=== PATIENT | female | born 1940 | race Caucasian/White ===

== ENCOUNTER 2021-03-17 17:51 | Inpatient (IN) | payer MEDICARE ==
[~2021-03-17] VITALS: Ht 157.5 cm; Wt 91.2 kg
[~2021-03-17 17:51] MED LIST: ALBU2.5V8 IH; FENO160T PO; FURO-68 PO; LORA-254 PO; PANT40TA3 PO; POTA10TA5 PO; QUET50TA5 PO; RIVA20TA2 PO; SERT100T PO; TEMA15CA PO; TRAZ-125 PO
[2021-03-17] MEDS ORDERED: MAG HYDROX/AL HYDROX/SIMETH 30 ML ORAL.SUSP PO PRN (19:45)
[2021-03-17] MEDS ORDERED: MAGNESIUM HYDROXIDE 2,400 MG/30 ML ORAL.SUSP. PO PRN (19:45)
[2021-03-17] MEDS ORDERED: LORazepam 1 MG TABLET PO PRN (19:45)
[2021-03-17] MEDS ORDERED: ALBUTEROL SULFATE 2.5 MG/3 ML NEBU. IH PRN (19:45)
[2021-03-17] MEDS ORDERED: METHYL SALICYLATE/MENTHOL TOPICAL OINTMENT 57GM TUBE. TP PRN (19:45)
--- NOTE | 2021-03-17 19:45 | NUR ---
Admission Note with Justification for Admission to [facility] Patient admitted to [facility] for protective oversight for emergency stabilization of acute psychiatric crisis. Pt admitted from: [address] [place] [address]/ [facility] Mode of arrival: w/c Accompanied By: [facility] Staff Precipitating behaviors that initiated intake and admission: delusional- thinks she is going [place] be [place] the [place], insomnia, anxiety, yelling out, screaming, scared, expressing that she wants to , disruptive to others in the [facility] community. Family reports pt had a traumatic experience in a halfway within the past month. Family feels pt may be having PTSD from that experience. Description of failure of out patient attempts at stabilization in previous setting list behavior and medication trials: medication changes, Ativan, outpatient psych, ER 03/16 for fall Behaviors and assessment findings upon admission: Pt A/O to self, confused, anxious, and tearful, difficult to re-direct and re-orient. Pt cooperative with admission assessment and compliant with medications administered whole. PRN Lorazepam administered for anxiety. Pt c/o L foot/ankle pain, area bruised and swollen. Pt had an x-ray of her L foot/ankle at [facility] on 03/16 which was negative for fx. PRN Tylenol administered for pain and pt LE elevated at HS. Pt has been yelling/calling out for "Paula" (DPOA/Dtr). Pt oriented to room, yellow non-slip socks on, bed low and locked, bed alarm @HS in use. Plan: Admit for protective oversight for adjustment and stabilization of medications, behaviors and mood. Intense treatment regimen including groups, medication adjustments, therapy, consistent regimen for ADL's, self care, and sleep hygiene. Daily monitoring by Inpatient staff, Psychiatry, and Medical Physician.
[2021-03-17] MEDS: traZODone 100 MG TABLET. PO SCH (20:19)
[2021-03-17] MEDS: QUEtiapine 50 MG TABLET. PO SCH (20:20)
[2021-03-17] MEDS: ACETAMINOPHEN 325 MG TABLET PO PRN (20:20)
[2021-03-17] MEDS: RIVAROXABAN 10 MG TABLET. PO SCH (20:20)
[2021-03-17 21:37] VITALS: BP 132/76
[2021-03-17] MEDS: TEMAZEPAM 15 MG CAPSULE PO PRN (22:34)
[2021-03-18 06:10] VITALS: BP 137/77
[2021-03-18] MEDS: PANTOPRAZOLE 40 MG TABLET. PO SCH ×2 (08:53→17:14)
[2021-03-18] MEDS: POTASSIUM CHLORIDE 10 MEQ TABLET.ER. PO SCH (08:54)
[2021-03-18] MEDS: SERTRALINE 100 MG TABLET. PO SCH (08:54)
[2021-03-18] MEDS: FUROSEMIDE 20 MG TABLET PO SCH (08:54)
[2021-03-18] MEDS: FENOFIBRATE NANOCRYSTALLIZED 145 MG TABLET PO SCH (08:54)
--- NOTE | 2021-03-18 12:47 | NUR ---
Nursing note: Patient in [facility] for morning medications & assessment, medications taken whole. She is A/O to self, tearful all day, calling out for daughter. Denies pain/discomfort at this time. Patient is currently eating lunch. Will continue to monitor.
[2021-03-18 15:46] VITALS: BP 136/84
[2021-03-18] MEDS: RIVAROXABAN 10 MG TABLET. PO SCH (17:14)
[2021-03-18] MEDS: QUEtiapine 50 MG TABLET. PO SCH (17:15)
[2021-03-18] MEDS: FERROUS SULFATE 325 MG TABLET. PO SCH (17:45)
[2021-03-18] MEDS: CHOLECALCIFEROL (VITAMIN D3) 50,000 UNIT CAPSULE PO SCH (17:45)
--- NOTE | 2021-03-18 18:09 | HP ---
ADMIT DATE: 03/18/2021 PSYCHIATRIC ADMISSION HISTORY/EVALUATION IDENTIFYING DATA: The patient is a 80-year-old female referred to us from [facility] by her primary care physician on account of worsening symptoms of depression, being delusional with marked insomnia, increased anxiety, screaming out, appearing scared. She was thinking she is going to be left out in a corn field and expressed thoughts of wanting to be . She was more forgetful and confused, depressed and psychotic, had failed outpatient psychiatric interventions resulting in this referral. The patient was admitted 03/17. CHIEF COMPLAINT: "Yes, I am depressed." The patient has been depressed, more confused, had failed outpatient psychiatric intervention, resulting in this referral. HISTORY OF PRESENT ILLNESS: The patient has a history of major neurocognitive disorder, Alzheimer, vascular type. She has been residing at the [facility], recently getting more depressed, anxious, paranoid, psychotic, and confused. She has had marked insomnia. No active suicidal or homicidal ideation, though she has expressed thoughts of wanting to be , but then scared that she would . No clear history of bipolar disorder. PAST PSYCHIATRIC HISTORY: As above. MEDICAL HISTORY: Hypertension, congestive heart failure, hypothyroidism, COPD, atrial fibrillation, hyperlipidemia, status post pulmonary embolism, GI bleed, recurrent falls. ACCU-CHEKS: None. CODE STATUS: DNR. ALLERGIES: ERYTHROMYCIN, PENICILLIN. DIET: Regular. MEDICATIONS: Takes medications whole. Ambulates standby assist with walker. UA 03/17 was negative. Current psychotropics: Ativan 1 mg t.i.d. p.r.n., temazepam 15 mg at bedtime p.r.n., Zoloft 200 mg a day, trazodone 100 mg at bedtime, Seroquel 50 mg daily at 5:00 p.m. Exelon mg at bedtime. FAMILY HISTORY: Noncontributory. SOCIAL HISTORY: No history of alcohol, drug abuse, physical, sexual or elder abuse. The patient is not known to be a perpetrator. REACTION TO HOSPITALIZATION: The patient accepting of it. The patient had a fall 03/[address] head, abdomen and pelvic, C-spine. X-ray left foot, ankle. Chest x-ray, x-ray right femur, right shoulder. EKG at that time and Tdap booster at [facility]. REVIEW OF SYSTEMS: Ambulation impaired, with walker. No CV, , pulmonary, eye, ENT system symptoms on review. MENTAL STATUS EXAM: The patient was seen on Telehealth services at 03/18. She is tearful, sad, crying, was unaware of the year, was not able to tell me her last name, but did respond yes when I asked her if she was living at [facility]. Speech is often responses monosyllabic, has some latency. Short-term memory is impaired. No active suicidal or homicidal ideation. Mood and affect are depressed. IMPRESSION: Probable major neurocognitive disorder, vascular with delusion. Depression, anxiety disorder, unspecified. Major depressive disorder, recurrent. Impulse control disorder. Rest as above. PLAN: Admit to Geropsychiatry Unit at [facility]. I will see the patient daily individually from a psychiatric standpoint, medical followup per Dr. Pitts/Dr. Garcia. Continue current psychotropics. Discontinue the Exelon for now until we assess her further. Make further adjustments in psychotropics post baseline assessment. ALBERTO/STUART/MIKE DR: ALBERTO/darrel TID: [id number]
[2021-03-18] MEDS: traZODone 100 MG TABLET. PO SCH (20:28)
[2021-03-18] MEDS: MIRTAZAPINE 7.5 MG TABLET. PO SCH (20:28)
[2021-03-18] MEDS: ASCORBIC ACID 500 MG TABLET PO SCH (20:28)
[2021-03-18] MEDS ORDERED: FERROUS SULFATE 325 MG TABLET. PO SCH (21:00)
[2021-03-18] MEDS ORDERED: ASCORBIC ACID 500 MG TABLET PO SCH (21:00)
--- NOTE | 2021-03-18 23:39 | NUR ---
Patient located in the hallway for assessments and medication, sitting with a peer. She is disorganized, flat. She was compliant with assessments and medications taken whole. No agitation. No delusions noted. She denies any pain or discomfort. Patient appears to be sleeping comfortably at present time. Will continue to monitor.
--- NOTE | 2021-03-19 00:10 | CONS ---
DATE OF CONSULTATION: 03/18/2021 REASON FOR CONSULTATION: Medical management. HISTORY OF PRESENT ILLNESS: The patient is a 80-year-old female patient, resident at [facility] in [facility] who was admitted to [facility] on account of having delusional, very anxious, screaming out things that she is going to be left in a corn field, frightened, scared, expresses that she wants to , all this in a background of dementia, Alzheimer's type. She apparently fell before coming to this unit and therefore, she was admitted to [facility] and extensive evaluation showed no evidence of any injury. She was admitted to [address] [place] [address] for a short stay and has had lab work drawn and was admitted to [facility] for inpatient psychiatric stabilization. The patient is very delusional, still asks me if she can get out of the corn field, has insomnia, extremely anxious, screaming out things that she is going to be left alone in a corn field, frightened and scared. PAST MEDICAL HISTORY: Significant for chronic diastolic congestive heart failure, hypertension, hypothyroidism, chronic obstructive pulmonary disease, atrial fibrillation, hyperlipidemia, history of pulmonary embolism and history of GI bleed. PAST PSYCHIATRIC HISTORY: Significant for anxiety, depression as well as dementia of Alzheimer's type. PAST SURGICAL HISTORY: Unremarkable. ALLERGIES: She has no known drug allergies. MEDICATIONS: She is currently on the following medications: She is on albuterol sulfate 2 puffs 4 times a day, rivaroxaban 20 mg once a day, fenofibrate 160 mg daily, sertraline 200 mg daily, trazodone 100 mg at bedtime, quetiapine fumarate 50 mg daily, lorazepam 1 mg 3 times a day, temazepam 15 mg at bedtime, potassium chloride 30 mEq once a day, furosemide 60 mg daily and Protonix 40 mg once a day. FAMILY HISTORY: Noncontributory. SOCIAL HISTORY: She is a resident at [facility]. PHYSICAL EXAMINATION: GENERAL: When I examined her this afternoon, she was resting flat, comfortably in bed, in no apparent respiratory distress. There is no pallor, jaundice, cyanosis, or thyromegaly. No jugular venous distention. No limb edema. VITAL SIGNS: Her heart rate was 92, blood pressure 149/77, temperature was 97.8, respiratory rate 20, and oxygen saturation was 97% on room air. HEAD, EYES, EARS, NOSE, AND THROAT: Normocephalic, atraumatic. NECK: Supple. HEART: Showed normal first and second heart sounds, no gallop or murmur. CHEST: Clear to auscultation, no crepitation or rhonchi. ABDOMEN: Distended, soft, nontender. NEUROLOGIC: She was grossly intact. LABORATORY DATA: Showed that she has microcytic hypochromic anemia. Her D-dimer was slightly elevated at 0.92 mg per liter and her chemistry was mostly unremarkable except that she has a low 25-hydroxy vitamin D. Her serum iron, TIBC and iron saturation are all consistent with iron deficiency anemia. My plan is to start her on vitamin D in the form of cholecalciferol 50,000 units once a week. She will also be started on ferrous sulfate and ascorbic acid to replenish her iron stores. Thank you, Dr. Pollard for allowing me to participate in the care of this patient. IFEANYI/KAROLINA DR: Viet TID: [id number]
[2021-03-19 06:20] VITALS: BP 165/84
[2021-03-19] MEDS: PANTOPRAZOLE 40 MG TABLET. PO SCH ×2 (08:35→17:10)
[2021-03-19] MEDS: FUROSEMIDE 20 MG TABLET PO SCH (08:36)
[2021-03-19] MEDS: POTASSIUM CHLORIDE 10 MEQ TABLET.ER. PO SCH (08:36)
[2021-03-19] MEDS: ACETAMINOPHEN 325 MG TABLET PO PRN (08:36)
[2021-03-19] MEDS: ASCORBIC ACID 500 MG TABLET PO SCH ×2 (08:36→20:47)
[2021-03-19] MEDS: FERROUS SULFATE 325 MG TABLET. PO SCH ×2 (08:36→17:10)
[2021-03-19] MEDS: SERTRALINE 100 MG TABLET. PO SCH (08:36)
[2021-03-19] MEDS: FENOFIBRATE NANOCRYSTALLIZED 145 MG TABLET PO SCH (08:36)
[2021-03-19] MEDS ORDERED: CHOLECALCIFEROL (VITAMIN D3) 50,000 UNIT CAPSULE PO SCH (09:00)
--- NOTE | 2021-03-19 09:49 | PDOC ---
Exam Note: Morgan Note: Late entry for 03/18/2021. Please also refer to the separate dictated note~for this date of service dictated separately.~Patient seen individually. Discussed the patient with Nursing staff reviewed the chart.~Reviewed interim history and current functioning. Reviewed vital signs,~Labs/ Radiology~and current medic ations noted below. Continue current treatment with the changes noted in the dictated addendum note Assessment: Vital Signs/I&O: Vital Signs Date Time Temp Pulse Resp B/P (MAP) Pulse Ox O2 Delivery O2 Flow Rate FiO2 03/19/21 06:20 97.7 89 18 165/84 (111) 94 Room Air I & O 03/18/21 03/18/21 03/19/21 15:00 23:00 07:00 Intake Total 600 ml 120 ml Balance 600 ml 120 ml Current Medications: Meds: Current Medications Medications (Trade) Dose Ordered Sig/Wing Route PRN Reason Start Time Stop Time Status Last Admin Dose Admin Albuterol Sulfate (Ventolin) 2.5 mg PRN QID PRN IH wheezing 03/17/21 19:45 Furosemide (Lasix) 60 mg DAILY PO 03/18/21 09:00 03/19/21 08:36 Pantoprazole Sodium (Protonix) 40 mg BIDBFRMEAL PO 03/18/21 07:30 03/19/21 08:35 Fenofibrate (Tricor) 145 mg DAILY PO 03/18/21 09:00 03/19/21 08:36 Potassium Chloride (Klor-Con) 30 meq DAILYWBKFT PO 03/18/21 08:00 03/19/21 08:36 Rivaroxaban (Xarelto) 20 mg DAILYWSUP PO 03/17/21 20:00 03/18/21 17:14 Lorazepam (Ativan) 1 mg PRN TID PRN PO ANXIETY / AGITATION 03/17/21 19:45 03/17/21 20:19 Quetiapine Fumarate (SEROquel) 50 mg DAILYWSUP PO 03/17/21 20:00 03/18/21 17:15 Sertraline HCl (Zoloft) 200 mg DAILY PO 03/18/21 09:00 03/19/21 08:36 Temazepam (Restoril) 15 mg PRN QHS PRN PO INSOMNIA 03/17/21 19:45 03/17/21 22:34 Trazodone HCl (Desyrel) 100 mg HS PO 03/17/21 21:00 03/18/21 20:28 Acetaminophen (Tylenol) 650 mg PRN Q6HRS PRN PO MILD PAIN / TEMP > 100.3'F 03/17/21 19:45 03/19/21 08:36 Multi-Ingredient Ointment (Analgesic [place]) 1 ravin PRN QID PRN TP MUSCLE PAIN 03/17/21 19:45 Al Hydroxide/Mg Hydroxide (Mylanta Plus Xs) 15 ml PRN AFTMEALHC PRN PO DYSPEPSIA 03/17/21 19:45 Magnesium Hydroxide (Milk Of Magnesia) 2,400 mg PRN QHS PRN PO CONSTIPATION 03/17/21 19:45 Mirtazapine (Remeron) 7.5 mg QHS PO 03/18/21 21:00 03/18/21 20:28 Olanzapine (ZyPREXA ZYDIS) 2.5 mg PRN Q2HRS PRN PO PSYCHOSIS 03/18/21 10:30 03/18/21 13:50 Vitamin D (Vitamin D3) 50,000 unit WEEKLY PO 03/18/21 18:00 03/18/21 17:45 Ferrous Sulfate (Feosol) 325 mg BIDWMEALS PO 03/18/21 18:00 03/19/21 08:36 Ascorbic Acid (Vitamin C) 500 mg BID PO 03/18/21 21:00 03/19/21 08:36 Vitamin D (Vitamin D3) 50,000 unit WEEKLY PO 03/19/21 09:00 03/18/21 17:45 DC Ferrous Sulfate (Feosol) 325 mg BID PO 03/18/21 21:00 03/18/21 17:45 DC Ascorbic Acid (Vitamin C) 500 mg BID PO 03/18/21 21:00 03/18/21 17:45 DC Current Medications Medications (Trade) Dose Ordered Sig/Wing Route PRN Reason Start Time Stop Time Status Last Admin Dose Admin Mirtazapine (Remeron) 7.5 mg QHS PO 03/18/21 21:00 03/18/21 20:28 Olanzapine (ZyPREXA ZYDIS) 2.5 mg PRN Q2HRS PRN PO PSYCHOSIS 03/18/21 10:30 03/18/21 13:50 Vitamin D (Vitamin D3) 50,000 unit WEEKLY PO 03/18/21 18:00 03/18/21 17:45 Ferrous Sulfate (Feosol) 325 mg BIDWMEALS PO 03/18/21 18:00 03/19/21 08:36 Ascorbic Acid (Vitamin C) 500 mg BID PO 03/18/21 21:00 03/19/21 08:36 I have reviewed the current psychotropics carefully including drug interactions. Risk benefit ratio favors no change other than as noted in my dictated progress note. Diagnosis: Problems: (1) Anxiety disorder, unspecified (2) Impulse control disorder, unspecified (3) Major neurocognitive disorder (4) Major depressive disorder, recurrent episode KADI YEPZE MD Mar 19, 2021 09:49
[2021-03-19] MEDS: QUEtiapine 50 MG TABLET. PO SCH ×2 (12:35→17:10)
--- NOTE | 2021-03-19 13:11 | NUR ---
WEEKLY ACTIVITY THERAPY NOTE Date of Admission:03/17/21 Date of AT Assessment: TBD Precipitating behaviors that initiated intake and admission: delusional- thinks she is going to be [place] the [place], insomnia, anxiety, yelling out, screaming, scared, expressing that she wants to , disruptive to others in the senior living community. Family reports pt had a traumatic experience in a long term within the past month. Family feels pt may be having PTSD from that experience. Goal aimed: TBD Initial Goal: TBD Weekly progress towards goal: NA Group participation level: NA Weekly highlights: arrived on [facility] Behaviors observed: new patient Plan: meet/assess pt Beneficial adaptations: TBD
--- NOTE | 2021-03-19 14:18 | NUR ---
Nursing note: Patient in [facility] for morning medications & assessment, medications taken whole. She is A/O to self, tearful all day, calling out for daughter. She ambulates with walker as well as uses wheelchair occasionally. She can be unsteady at times. Denies pain/discomfort at this time. Patient is currently sitting in [facility]. Will continue to monitor.
[2021-03-19 15:43] VITALS: BP 119/80
[2021-03-19] MEDS: RIVAROXABAN 10 MG TABLET. PO SCH (17:10)
[2021-03-19] MEDS: MIRTAZAPINE 7.5 MG TABLET. PO SCH (20:47)
[2021-03-19] MEDS: traZODone 100 MG TABLET. PO SCH (20:47)
--- NOTE | 2021-03-19 22:09 | PDOC ---
Exam Note: Morgan Note: Please also refer to the separate dictated note~for this date of service dictated separately.~Patient seen individually. Discussed the patient with Nursing staff reviewed the chart.~Reviewed interim history and current functioning. Reviewed vital signs,~Labs/ Radiology~and current medications noted below. Continue current treatment with the changes noted in the dictated addendum note Assessment: Vital Signs/I&O: Vital Signs Date Time Temp Pulse Resp B/P (MAP) Pulse Ox O2 Delivery O2 Flow Rate FiO2 03/19/21 15:43 97.6 87 18 119/80 (93) 98 03/19/21 06:20 Room Air I & O 03/18/21 03/18/21 03/19/21 15:00 23:00 07:00 Intake Total 600 ml 120 ml Balance 600 ml 120 ml Current Medications: Meds: Current Medications Medications (Trade) Dose Ordered Sig/Wing Route PRN Reason Start Time Stop Time Status Last Admin Dose Admin Albuterol Sulfate (Ventolin) 2.5 mg PRN QID PRN IH wheezing 03/17/21 19:45 Furosemide (Lasix) 60 mg DAILY PO 03/18/21 09:00 03/19/21 08:36 Pantoprazole Sodium (Protonix) 40 mg BIDBFRMEAL PO 03/18/21 07:30 03/19/21 17:10 Fenofibrate (Tricor) 145 mg DAILY PO 03/18/21 09:00 03/19/21 08:36 Potassium Chloride (Klor-Con) 30 meq DAILYWBKFT PO 03/18/21 08:00 03/19/21 08:36 Rivaroxaban (Xarelto) 20 mg DAILYWSUP PO 03/17/21 20:00 03/19/21 17:10 Lorazepam (Ativan) 1 mg PRN TID PRN PO ANXIETY / AGITATION 03/17/21 19:45 03/17/21 20:19 Quetiapine Fumarate (SEROquel) 50 mg DAILYWSUP PO 03/17/21 20:00 03/19/21 11:53 DC 03/18/21 17:15 Sertraline HCl (Zoloft) 200 mg DAILY PO 03/18/21 09:00 03/19/21 08:36 Temazepam (Restoril) 15 mg PRN QHS PRN PO INSOMNIA 03/17/21 19:45 03/17/21 22:34 Trazodone HCl (Desyrel) 100 mg HS PO 03/17/21 21:00 03/19/21 20:47 Acetaminophen (Tylenol) 650 mg PRN Q6HRS PRN PO MILD PAIN / TEMP > 100.3'F 03/17/21 19:45 03/19/21 08:36 Multi-Ingredient Ointment (Analgesic [place]) 1 ravin PRN QID PRN TP MUSCLE PAIN 03/17/21 19:45 Al Hydroxide/Mg Hydroxide (Mylanta Plus Xs) 15 ml PRN AFTMEALHC PRN PO DYSPEPSIA 03/17/21 19:45 Magnesium Hydroxide (Milk Of Magnesia) 2,400 mg PRN QHS PRN PO CONSTIPATION 03/17/21 19:45 Mirtazapine (Remeron) 7.5 mg QHS PO 03/18/21 21:00 03/19/21 20:47 Olanzapine (ZyPREXA ZYDIS) 2.5 mg PRN Q2HRS PRN PO PSYCHOSIS 03/18/21 10:30 03/18/21 13:50 Vitamin D (Vitamin D3) 50,000 unit WEEKLY PO 03/18/21 18:00 03/18/21 17:45 Ferrous Sulfate (Feosol) 325 mg BIDWMEALS PO 03/18/21 18:00 03/19/21 17:10 Ascorbic Acid (Vitamin C) 500 mg BID PO 03/18/21 21:00 03/19/21 20:47 Vitamin D (Vitamin D3) 50,000 unit WEEKLY PO 03/19/21 09:00 03/18/21 17:45 DC Ferrous Sulfate (Feosol) 325 mg BID PO 03/18/21 21:00 03/18/21 17:45 DC Ascorbic Acid (Vitamin C) 500 mg BID PO 03/18/21 21:00 03/18/21 17:45 DC Quetiapine Fumarate (SEROquel) 25 mg 0900,1300,1700 PO 03/19/21 13:00 03/19/21 17:10 Current Medications Medications (Trade) Dose Ordered Sig/Wing Route PRN Reason Start Time Stop Time Status Last Admin Dose Admin Quetiapine Fumarate (SEROquel) 25 mg 0900,1300,1700 PO 03/19/21 13:00 03/19/21 17:10 I have reviewed the current psychotropics carefully including drug interactions. Risk benefit ratio favors no change other than as noted in my dictated progress note. Diagnosis: Problems: (1) Major depressive disorder, recurrent episode (2) Impulse control disorder, unspecified (3) Anxiety disorder, unspecified (4) Major neurocognitive disorder KADI YEPEZ MD Mar 19, 2021 22:09
--- NOTE | 2021-03-20 03:07 | NUR ---
Nursing Note The patient was located in her room for her assessment and medication pass. The patient was tearful at times but was unable to communicate why she was upset. The patient took her medication whole. The patient was alert to self only. The patient is currently sleeping in her room.
[2021-03-20 05:50] VITALS: BP 148/82
[2021-03-20] MEDS: POTASSIUM CHLORIDE 10 MEQ TABLET.ER. PO SCH (08:00)
[2021-03-20] MEDS: PANTOPRAZOLE 40 MG TABLET. PO SCH ×2 (09:00→17:01)
[2021-03-20] MEDS: QUEtiapine 50 MG TABLET. PO SCH ×3 (09:01→17:01)
[2021-03-20] MEDS: FUROSEMIDE 20 MG TABLET PO SCH (09:01)
[2021-03-20] MEDS: ASCORBIC ACID 500 MG TABLET PO SCH ×2 (09:01→21:05)
[2021-03-20] MEDS: FERROUS SULFATE 325 MG TABLET. PO SCH ×2 (09:01→17:02)
[2021-03-20] MEDS: SERTRALINE 100 MG TABLET. PO SCH (09:01)
[2021-03-20] MEDS: FENOFIBRATE NANOCRYSTALLIZED 145 MG TABLET PO SCH (09:01)
--- NOTE | 2021-03-20 13:15 | NUR ---
ACTIVITY THERAPY ASSESSMENT completed based on notes, observation and interview. Pt was sitting in a chair in the [facility]. Pt was agreeable to answering assessment questions. Pt was tearful throughout assessment and hard to redirect. Pt was unable to provide leisure activities that she enjoyed. AT assisted pt with leisure activities and she agreed to enjoying reading, watching TV and exercise. Pt said that she is not gnosticism. AT then asked pt about her family and she said that she is not and has two children. Pt said that she has good contact with her two children. AT asked pt if she can walk okay and she reported that she could. Per notes pt uses a walker or wheelchair based on her needs at the time. AT then asked pt if she reported any stress and she said "oh, yes." AT asked her to explain what is causing her stress and pt became tearful and said "everything." Pt was unable to explain how she normally afia with stress. Per notes she continues to be tearful and yells out for her daughter often. Pt is compliant with medications and cares. Initial goal aimed to increase time management and relaxation skills.Pt will participate in at least five individual or group Activity Therapy sessions before discharge. Addendum: 04/02/21 at 1254 by NADIYA DUDLEY ACT Goal changed 04/02: Pt. will participate in at least five individual or Activity Therapy groups per week
--- NOTE | 2021-03-20 15:23 | NUR ---
Nursing note: Patient in [facility] for morning medications & assessment, medications taken whole. She is A/O to self, whimpering all day, & calling out for daughter. She ambulates with walker as well as uses wheelchair. She can be unsteady at times. Denies pain/discomfort at this time. Patient is currently sitting in [facility]. Will continue to monitor.
[2021-03-20 15:50] VITALS: BP 126/79
--- NOTE | 2021-03-20 15:55 | NUR ---
PSYCHOSOCIAL ASSESSMENT ADMISSION DATE: 03/17/21 CONTACT INFORMATION: DPOA/Guardian Contact Name: Paula San Contact Phone #: [phone] ETHNIC ORIGIN: REASONS FOR ADMISSION: Anxiety/Panic Confusion/Disoriented Delusions Sig. Change Sleep Suicidal ideation ADDITIONAL ADMISSION COMMENTS: Per intake record, insomnia, anxious, screaming out, believes she is going to be left in a cornfield, frightened/scared, expresses she wants to , delusional and asks to be gotten out of the corn field, disruptive to the long term community in which she is living. REASON FOR ADMISSION IN PATIENT/FAMILY'S OWN WORDS: As above. PATIENT/FAMILY EXPECTATIONS FOR ADMISSION: Per Danica, "I want to go home." LIVING SITUATION: Patient lives with: Independent Living Other living arrangements: [facility] Living Contact Name: Christa-nurse Contact Address: [address] [place] [address] Contact Phone #: cell-[phone] FAMILY RELATIONS: Marital Status: # of Marriages: 1 # of Children: 2 [facility] Family Support: Concerned Additional Comments r/t Family: Danica was to Julius Wilks and has two children, Paula ([facility]) and Mian (resides outside of [facility]). Danica was unable to recall if her spouse was living/ or if they had /. SIGNIFICANT PSYCHIATRIC/MEDICAL HISTORY: Psychiatric/Treatment History: Danica reported utilizing counseling services in the past. At time of intake, Dr. Wanda Ziegler was reported to be Danica's psychiatrist. Pertinent Family History: Danica reported her father to "drink a lot." Danica was unaware of any other family of origin with mental health or substance abuse issues. HISTORICAL DATA: Childhood Environment: Stressful Childhood Environment Additional Comments: Danica was born in [facility] to Gerard and Misty Joyner. Gerard worked as a logging truck driver and Misty was a ventilation worker. Danica had four siblings; Boston, Michael, Elissa, and Courtney. Danica believes her siblings are all still living. Danica reported her childhood was stressful as her father "drank a lot." Trauma History: None reported. 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 service: None Gnosticism background: Danica belongs to the [employer]. She reported her meghan as very important to her and that she was involved in her oriental orthodox. Sexual orientation: Heterosexual Educational Level: Danica graduated high school. Past/Present Interests/Hobbies: Danica has enjoyed bowling, oriental orthodox involvement, cooking, and gardening. Financial support/resources: Social Security Monthly income: unknown, adequate Person handling finances: Paula Young-daughter Do you have a history of legal problems: None reported Cultural considerations: None reported SOCIAL RELATIONSHIPS-CURRENT/PAST: Psychiatrist: Dr. Wanda Ziegler PCP: Dr. Randle Counselor/Therapist: N/A [facility]: N/A Support Group: N/A Stamp Pad Maker/Candy Department Manager: N/A Other relationships: Family support STRENGTHS & WEAKNESSES: Patient's strengths: Good family support Ambulatory Approachable Patient's weaknesses: Health problems Other patient weaknesses: Memory impairment, declining health PRELIMINARY PLAN OF TREATMENT: Preliminary plan: Dec. Anxiety/Panic Dec. Symp. Depression Promote Coping Skill Medication Stabilization Monitor Med Effects Control abnormal behavior Dec. Outbursts Other preliminary treatment comments: Danica will be encouraged to converse with staff and be involved in recreational activities while hospitalized. DISCHARGE PLANNING: Discharge planning/disposition: Home Additional discharge needs identified: Return to independent apartment at [facility] vs. placement for increased support with care needs ADDITIONAL INFORMATION: Other Pertinent Data: DEMETRICE met with Danica this afternoon to support related to recent admit and complete psychosocial assessment. Danica was sitting in the mcgee and had completed her noon meal. Danica was alert and oriented to herself. She recalled the year as 1944, the month as December,the day as Friday, and was unaware of where she was. Danica appeared to recall some events from her remote past. DEMETRICE has left message for Paula, daughter/POA, to confirm information. Danica was tearful throughout conversation and expressed desire to go home. SW provided reassurance/support. Danica expressed desire to speak with Paula. DEMETRICE will convey this to Paula when Paula calls back. Addendum: 03/21/21 at 0903 by MICHAEL SURESH On 03/20/21, DEMETRICE received a return call from KALPANA Mitchell/daughter, who provided additional information for social history. Danica was raised in [facility]. Her father was actually a critical access hospital heavy cleaner and mother was a homemaker. Danica was the fourth child born of five. 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 Danica attended oriental orthodox regularly and was involved in oriental orthodox groups. Danica was involved in the local [employer] center, played cards there and also volunteered. 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 Danica's is , Julius at the age of 6959 years old from heart disease. It was reported that Danica never got over Julius's . Danica is reported as an "emotional person." Paula shared that Danica has declined cognitively after getting her second Covid vaccine in September 2020, suffering a GI bleed in 10/2020, and having four hospitalizations since the GI bleed. Danica also contracted Covid in February 2021 and was admitted to [facility] for rehab for a week and this was reported as a negative experience. Paula accepted invite to participate in team meeting to be held on 03/26/21.
--- NOTE | 2021-03-20 16:11 | TX PLAN ---
Interdisciplinary Tx Plan Admission Information Mar 17, 2021 at 17:51 Legal Status (on Admission): Voluntary, DPOA DPOA/Guardian Name: Paula San Contact Other Contact Name: Christa- Other Contact Phone: cell-[phone] Verified Code Status: DNR Allergies: Coded Allergies: Penicillins (Verified Allergy, Unknown, Unknown, 03/17/21) erythromycin base (Verified Allergy, Unknown, Unknown, 03/17/21) Estimated Length of Stay: 14 Diagnoses Primary Diagnosis: MDD; dementia Reasons for Admission: Delusions, Sig. Change Sleep, Anxiety/Panic, Suicidal ideation, Confusion/Disoriented Problem in Patient's Words: As above Additional Admission Comments: Per intake record, insomnia, anxious, screaming out, believes she is going to be left in a cornfield, frightened/scared, expresses she wants to , delusional and asks to be gotten out of the corn field, disruptive to the senior care community in which she is living. Problems Active Problems: Delusional insomnia anxious screaming out frightened/scared that she's going to be left in a corn field expresses she wats to disruptive to the senior care community in which she lives Inactive Problems: Intakes are averaging 50% Pt Strengths/Limitations Ability for [place]: Fair Cognitive Functioning/Ability: Fair Communication Skills/Ability: Fair Financial Resources: Fair Insight/Judgement: Fair Intellectual Ability: Fair Physical Health: Fair Social Skills: Fair Stability in Family: Good Verbal Skills: Fair Discharge Criteria Discharge Criteria: Able meet basic life need, Able to meet health needs, Adequate arrangements @DC, Adequate self-care, Improved mood/thought Preliminary Discharge Plan Preliminary DC Plan: Home Other Arrangements: Independent apartment at [facility] Special Precautions Special Precautions: Suicide Risk Fall Risk: High Initial D/C Plan Independent formerly [facility] apartment vs. higher level of care Identified Discharge Needs: Return to independent apartment at [facility] vs. placement for increased support with care needs Currently Utilized Resources Currently Utilized Resources/P: PCP Out patient psychciatry Identified Problems/Hx/Goals Objectives/Short-Term Goals Short Term Goals: Control abnormal behavior, Dec. Anxiety/Panic, Dec. Outb ursts, Dec. Symp. Depression, Medication Stabilization, Monitor Med Effects, Promote Coping Skill Short Term Goals in Patient's: Per Danica, "I want to go home." Interventions/Frequency Staff Interventions/Frequency&: Nursing to provide routine safety checks, medication administration, and adl support. Psychiatry to see three times weekly. SW to see twice weekly. Recreational activites as Danica desires. PT/OT eval and treat as indicated. 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 Social: Seun has enjoyed bowling, restorationist involvment, cooking, and gardening. Education: Danica graduated high school. Community Follow-up PCP Out patient psychiatry Community Provider/Family Inpu: Team meeting was held on 03/19/21, data security administrator of joel[employer]ent plan was completed on 03/20/21. Treatment Plan Explained Patient/Inventory Coordinator had this treatment plan explained to him/her as indicated by the signature below and has been given the opportunity to ask questions and make suggestions: Date: Patient/Inventory Coordinator Signature: MICHAEL LUCIA Mar 20, 2021 16:11
[2021-03-20] MEDS: RIVAROXABAN 10 MG TABLET. PO SCH (17:01)
[2021-03-20] MEDS: traZODone 100 MG TABLET. PO SCH (21:05)
[2021-03-20] MEDS: MIRTAZAPINE 7.5 MG TABLET. PO SCH (21:05)
--- NOTE | 2021-03-20 22:47 | PDOC ---
Exam Note: Morgan Note: This note is a late entry for 03/19/2021 covers elements not covered in my initial note. Subjective: The patient was reviewed at treatment team meeting individually in the morning on 03/19/2021 with Jessica Vences (social worker psychiatric), Mary, activity therapy and Cecelia MONTERO, discussed and reviewed the chart. The patient slept 7 hours previous night. Patient is compliant with her medications. She is oriented to herself only. Reviewed her history. She had COVID infection in February, went to a skilled nursing for rehab and then became more depressed after she was irritable with marked mood lability and confusion there and reportedly one of the staff told her they had put her out in the corn field and she has been obsessing about this since then. Review of Systems: Ambulation impaired with walker. No CV, , pulmonary, eye, ENT system symptoms on review. Reliability poor. Mental Status Exam: The patient is oriented to herself. Insight and judgment, recent and remote memory, attention and concentration, fund of knowledge is poor consistent with her diagnoses. Laboratory Data: Reviewed. Impression: Major neurocognitive disorder Alzheimer, vascular with delusion, depression, behavioral disturbance. Anxiety disorder unspecified. Impulse control disorder unspecified. Major depressive disorder. Plan: Stop the Seroquel 50 mg 5 p.m. Start Seroquel 25 mg 9 a.m., 1 p.m. and 5 p.m. Continue rest of the psychotropics unchanged. Adjust further as clinically indicated. Zoloft remains 200 mg a day. Assessment: Vital Signs/I&O: Vital Signs Date Time Temp Pulse Resp B/P (MAP) Pulse Ox O2 Delivery O2 Flow Rate FiO2 03/20/21 15:50 98.2 86 18 126/79 (95) 95 03/19/21 06:20 Room Air I & O 03/19/21 03/19/21 03/20/21 15:00 23:00 07:00 Intake Total 840 ml 480 ml Balance 840 ml 480 ml Current Medications: Meds: Current Medications Medications (Trade) Dose Ordered Sig/Wing Route PRN Reason Start Time Stop Time Status Last Admin Dose Admin Albuterol Sulfate (Ventolin) 2.5 mg PRN QID PRN IH wheezing 03/17/21 19:45 Furosemide (Lasix) 60 mg DAILY PO 03/18/21 09:00 03/20/21 09:01 Pantoprazole Sodium (Protonix) 40 mg BIDBFRMEAL PO 03/18/21 07:30 03/20/21 17:01 Fenofibrate (Tricor) 145 mg DAILY PO 03/18/21 09:00 03/20/21 09:01 Potassium Chloride (Klor-Con) 30 meq DAILYWBKFT PO 03/18/21 08:00 03/20/21 08:00 Rivaroxaban (Xarelto) 20 mg DAILYWSUP PO 03/17/21 20:00 03/20/21 17:01 Lorazepam (Ativan) 1 mg PRN TID PRN PO ANXIETY / AGITATION 03/17/21 19:45 03/17/21 20:19 Quetiapine Fumarate (SEROquel) 50 mg DAILYWSUP PO 03/17/21 20:00 03/19/21 11:53 DC 03/18/21 17:15 Sertraline HCl (Zoloft) 200 mg DAILY PO 03/18/21 09:00 03/20/21 09:01 Temazepam (Restoril) 15 mg PRN QHS PRN PO INSOMNIA 03/17/21 19:45 03/17/21 22:34 Trazodone HCl (Desyrel) 100 mg HS PO 03/17/21 21:00 03/20/21 21:05 Acetaminophen (Tylenol) 650 mg PRN Q6HRS PRN PO MILD PAIN / TEMP > 100.3'F 03/17/21 19:45 03/19/21 08:36 Multi-Ingredient Ointment (Analgesic [place]) 1 ravin PRN QID PRN TP MUSCLE PAIN 03/17/21 19:45 Al Hydroxide/Mg Hydroxide (Mylanta Plus Xs) 15 ml PRN AFTMEALHC PRN PO DYSPEPSIA 03/17/21 19:45 Magnesium Hydroxide (Milk Of Magnesia) 2,400 mg PRN QHS PRN PO CONSTIPATION 03/17/21 19:45 Mirtazapine (Remeron) 7.5 mg QHS PO 03/18/21 21:00 03/20/21 21:05 Olanzapine (ZyPREXA ZYDIS) 2.5 mg PRN Q2HRS PRN PO PSYCHOSIS 03/18/21 10:30 03/18/21 13:50 Vitamin D (Vitamin D3) 50,000 unit WEEKLY PO 03/18/21 18:00 03/18/21 17:45 Ferrous Sulfate (Feosol) 325 mg BIDWMEALS PO 03/18/21 18:00 03/20/21 17:02 Ascorbic Acid (Vitamin C) 500 mg BID PO 03/18/21 21:00 03/20/21 21:05 Vitamin D (Vitamin D3) 50,000 unit WEEKLY PO 03/19/21 09:00 03/18/21 17:45 DC Ferrous Sulfate (Feosol) 325 mg BID PO 03/18/21 21:00 03/18/21 17:45 DC Ascorbic Acid (Vitamin C) 500 mg BID PO 03/18/21 21:00 03/18/21 17:45 DC Quetiapine Fumarate (SEROquel) 25 mg 0900,1300,1700 PO 03/19/21 13:00 03/20/21 17:01 I have reviewed the current psychotropics carefully including drug interactions. Risk benefit ratio favors no change other than as noted in my dictated progress note. Diagnosis: Problems: (1) Major depressive disorder, recurrent episode (2) Impulse control disorder, unspecified (3) Anxiety disorder, unspecified (4) Major neurocognitive disorder (5) Dementia, vascular, with delusions (6) Dementia, vascular, with depression KADI YEPEZ MD Mar 20, 2021 22:47
--- NOTE | 2021-03-20 22:48 | PDOC ---
Exam Note: Morgan Note: Please also refer to the separate dictated note~for this date of service dictated separately.~Patient seen individually. Discussed the patient with Nursing staff reviewed the chart.~Reviewed interim history and current functioning. Reviewed vital signs,~Labs/ Radiology~and current medications noted below. Continue current treatment with the changes noted in the dictated addendum note Assessment: Vital Signs/I&O: Vital Signs Date Time Temp Pulse Resp B/P (MAP) Pulse Ox O2 Delivery O2 Flow Rate FiO2 03/20/21 15:50 98.2 86 18 126/79 (95) 95 03/19/21 06:20 Room Air I & O 03/19/21 03/19/21 03/20/21 15:00 23:00 07:00 Intake Total 840 ml 480 ml Balance 840 ml 480 ml Current Medications: Meds: Current Medications Medications (Trade) Dose Ordered Sig/Wing Route PRN Reason Start Time Stop Time Status Last Admin Dose Admin Albuterol Sulfate (Ventolin) 2.5 mg PRN QID PRN IH wheezing 03/17/21 19:45 Furosemide (Lasix) 60 mg DAILY PO 03/18/21 09:00 03/20/21 09:01 Pantoprazole Sodium (Protonix) 40 mg BIDBFRMEAL PO 03/18/21 07:30 03/20/21 17:01 Fenofibrate (Tricor) 145 mg DAILY PO 03/18/21 09:00 03/20/21 09:01 Potassium Chloride (Klor-Con) 30 meq DAILYWBKFT PO 03/18/21 08:00 03/20/21 08:00 Rivaroxaban (Xarelto) 20 mg DAILYWSUP PO 03/17/21 20:00 03/20/21 17:01 Lorazepam (Ativan) 1 mg PRN TID PRN PO ANXIETY / AGITATION 03/17/21 19:45 03/17/21 20:19 Quetiapine Fumarate (SEROquel) 50 mg DAILYWSUP PO 03/17/21 20:00 03/19/21 11:53 DC 03/18/21 17:15 Sertraline HCl (Zoloft) 200 mg DAILY PO 03/18/21 09:00 03/20/21 09:01 Temazepam (Restoril) 15 mg PRN QHS PRN PO INSOMNIA 03/17/21 19:45 03/17/21 22:34 Trazodone HCl (Desyrel) 100 mg HS PO 03/17/21 21:00 03/20/21 21:05 Acetaminophen (Tylenol) 650 mg PRN Q6HRS PRN PO MILD PAIN / TEMP > 100.3'F 03/17/21 19:45 03/19/21 08:36 Multi-Ingredient Ointment (Analgesic [place]) 1 ravin PRN QID PRN TP MUSCLE PAIN 03/17/21 19:45 Al Hydroxide/Mg Hydroxide (Mylanta Plus Xs) 15 ml PRN AFTMEALHC PRN PO DYSPEPSIA 03/17/21 19:45 Magnesium Hydroxide (Milk Of Magnesia) 2,400 mg PRN QHS PRN PO CONSTIPATION 03/17/21 19:45 Mirtazapine (Remeron) 7.5 mg QHS PO 03/18/21 21:00 03/20/21 21:05 Olanzapine (ZyPREXA ZYDIS) 2.5 mg PRN Q2HRS PRN PO PSYCHOSIS 03/18/21 10:30 03/18/21 13:50 Vitamin D (Vitamin D3) 50,000 unit WEEKLY PO 03/18/21 18:00 03/18/21 17:45 Ferrous Sulfate (Feosol) 325 mg BIDWMEALS PO 03/18/21 18:00 03/20/21 17:02 Ascorbic Acid (Vitamin C) 500 mg BID PO 03/18/21 21:00 03/20/21 21:05 Vitamin D (Vitamin D3) 50,000 unit WEEKLY PO 03/19/21 09:00 03/18/21 17:45 DC Ferrous Sulfate (Feosol) 325 mg BID PO 03/18/21 21:00 03/18/21 17:45 DC Ascorbic Acid (Vitamin C) 500 mg BID PO 03/18/21 21:00 03/18/21 17:45 DC Quetiapine Fumarate (SEROquel) 25 mg 0900,1300,1700 PO 03/19/21 13:00 03/20/21 17:01 I have reviewed the current psychotropics carefully including drug interactions. Risk benefit ratio favors no change other than as noted in my dictated progress note. Diagnosis: Problems: (1) Major depressive disorder, recurrent episode (2) Impulse control disorder, unspecified (3) Anxiety disorder, unspecified (4) Major neurocognitive disorder (5) Dementia, vascular, with depression (6) Dementia, vascular, with delusions KADI YEPEZ MD Mar 20, 2021 22:48
[2021-03-21 05:42] VITALS: BP 134/67
--- NOTE | 2021-03-21 06:48 | PDOC ---
Exam Note: Morgan Note: This note is a late entry for 03/20/2021 covers elements not covered in my initial note. Subjective: The patient was seen face to face in the evening of 03/20/2021 with Cecelia MONTERO, discussed and reviewed the chart. The patient slept 6-1/2 hours previous night. She continues to be anxious, restless, repeatedly calling out for Paula, her daughter but this is better today. Review of Systems: Gait unsteady with walker. No CV, , pulmonary, eye, ENT system symptoms on review. Mental Status Exam: The patient is oriented to herself. Insight and judgment, recent and remote memory, attention and concentration, fund of knowledge is poor consistent with her diagnoses. Laboratory Data: Reviewed. Impression: Major neurocognitive disorder Alzheimer, vascular with delusion, depression, behavioral disturbance. Anxiety disorder unspecified. Impulse control disorder unspecified. Major depressive disorder recurrent. Plan: Continue current psychotropics. Adjust further as clinically indicated. We may need to increase Seroquel depending on her progress. Assessment: Vital Signs/I&O: Vital Signs Date Time Temp Pulse Resp B/P (MAP) Pulse Ox O2 Delivery O2 Flow Rate FiO2 03/21/21 05:42 97.8 87 16 134/67 (89) 90 Room Air I & O 03/20/21 03/20/21 03/21/21 15:00 23:00 07:00 Intake Total 480 ml 480 ml Balance 480 ml 480 ml Current Medications: Meds: Current Medications Medications (Trade) Dose Ordered Sig/Wing Route PRN Reason Start Time Stop Time Status Last Admin Dose Admin Albuterol Sulfate (Ventolin) 2.5 mg PRN QID PRN IH wheezing 03/17/21 19:45 Furosemide (Lasix) 60 mg DAILY PO 03/18/21 09:00 03/20/21 09:01 Pantoprazole Sodium (Protonix) 40 mg BIDBFRMEAL PO 03/18/21 07:30 03/20/21 17:01 Fenofibrate (Tricor) 145 mg DAILY PO 03/18/21 09:00 03/20/21 09:01 Potassium Chloride (Klor-Con) 30 meq DAILYWBKFT PO 03/18/21 08:00 03/20/21 08:00 Rivaroxaban (Xarelto) 20 mg DAILYWSUP PO 03/17/21 20:00 03/20/21 17:01 Lorazepam (Ativan) 1 mg PRN TID PRN PO ANXIETY / AGITATION 03/17/21 19:45 03/17/21 20:19 Quetiapine Fumarate (SEROquel) 50 mg DAILYWSUP PO 03/17/21 20:00 03/19/21 11:53 DC 03/18/21 17:15 Sertraline HCl (Zoloft) 200 mg DAILY PO 03/18/21 09:00 03/20/21 09:01 Temazepam (Restoril) 15 mg PRN QHS PRN PO INSOMNIA 03/17/21 19:45 03/17/21 22:34 Trazodone HCl (Desyrel) 100 mg HS PO 03/17/21 21:00 03/20/21 21:05 Acetaminophen (Tylenol) 650 mg PRN Q6HRS PRN PO MILD PAIN / TEMP > 100.3'F 03/17/21 19:45 03/19/21 08:36 Multi-Ingredient Ointment (Analgesic [place]) 1 ravin PRN QID PRN TP MUSCLE PAIN 03/17/21 19:45 Al Hydroxide/Mg Hydroxide (Mylanta Plus Xs) 15 ml PRN AFTMEALHC PRN PO DYSPEPSIA 03/17/21 19:45 Magnesium Hydroxide (Milk Of Magnesia) 2,400 mg PRN QHS PRN PO CONSTIPATION 03/17/21 19:45 Mirtazapine (Remeron) 7.5 mg QHS PO 03/18/21 21:00 03/20/21 21:05 Olanzapine (ZyPREXA ZYDIS) 2.5 mg PRN Q2HRS PRN PO PSYCHOSIS 03/18/21 10:30 03/18/21 13:50 Vitamin D (Vitamin D3) 50,000 unit WEEKLY PO 03/18/21 18:00 03/18/21 17:45 Ferrous Sulfate (Feosol) 325 mg BIDWMEALS PO 03/18/21 18:00 03/20/21 17:02 Ascorbic Acid (Vitamin C) 500 mg BID PO 03/18/21 21:00 03/20/21 21:05 Vitamin D (Vitamin D3) 50,000 unit WEEKLY PO 03/19/21 09:00 03/18/21 17:45 DC Ferrous Sulfate (Feosol) 325 mg BID PO 03/18/21 21:00 03/18/21 17:45 DC Ascorbic Acid (Vitamin C) 500 mg BID PO 03/18/21 21:00 03/18/21 17:45 DC Quetiapine Fumarate (SEROquel) 25 mg 0900,1300,1700 PO 03/19/21 13:00 03/20/21 17:01 I have reviewed the current psychotropics carefully including drug interactions. Risk benefit ratio favors no change other than as noted in my dictated progress note. Diagnosis: Problems: (1) Major depressive disorder, recurrent episode (2) Impulse control disorder, unspecified (3) Anxiety disorder, unspecified (4) Major neurocognitive disorder (5) Dementia, vascular, with depression (6) Dementia, vascular, with delusions KADI YEPEZ MD Mar 21, 2021 06:48
[2021-03-21] MEDS: POTASSIUM CHLORIDE 10 MEQ TABLET.ER. PO SCH (08:00)
[2021-03-21] MEDS: ASCORBIC ACID 500 MG TABLET PO SCH ×2 (08:20→20:50)
[2021-03-21] MEDS: SERTRALINE 100 MG TABLET. PO SCH (08:20)
[2021-03-21] MEDS: FENOFIBRATE NANOCRYSTALLIZED 145 MG TABLET PO SCH (08:20)
[2021-03-21] MEDS: FERROUS SULFATE 325 MG TABLET. PO SCH ×2 (08:21→16:56)
[2021-03-21] MEDS: PANTOPRAZOLE 40 MG TABLET. PO SCH ×2 (08:21→16:56)
[2021-03-21] MEDS: QUEtiapine 50 MG TABLET. PO SCH ×2 (08:21→13:27)
[2021-03-21] MEDS: FUROSEMIDE 20 MG TABLET PO SCH (08:21)
--- NOTE | 2021-03-21 14:03 | NUR ---
1:1 with Danica to socialize and support. Danica was sitting outside her room in a chair. She was alert and became tearful as this worker spoke. Danica makes repetitive requests to go home alternated between crying bouts. She asked this worker to contact her parents to come and get her. Danica scored 14/30 on MMSE indicating possible moderate cognitive impairment. Danica did not recall her son Mian phoning her last night. Danica expressed fear that she would never be released in order to go home. Reassurance provided throughout conversation. Encouraged Danica to rely on her meghan and suggested she recite the Lord's prayer as a way to calm herself. While Danica listened to DEMETRICE recite the prayer, Danica did not join in. DEMETRICE returned call to jose Mitchell, and provided an update. Addendum: 03/21/21 at 1536 by MICHAEL SURESH Per Paual, Danica has enjoyed word search puzzles. DEMETRICE provided Danica with a large print word search puzzle and assisted to get started finding some fo the words. Danica was then able to find one of the words on her own. Will continue to diversional activities to Danica.
[2021-03-21 15:49] VITALS: BP 115/76
[2021-03-21] MEDS: RIVAROXABAN 10 MG TABLET. PO SCH (16:56)
[2021-03-21] MEDS: QUEtiapine 25 MG TABLET. PO SCH (16:56)
--- NOTE | 2021-03-21 17:53 | NUR ---
Nursing note: Pt has been very tearful this shift, but she is med compliant and cooperative. Pt often c/o pain in her ankle, but refuses any PRN medication offered to her. She is currently sitting quietly in the mcgee. Will continue to monitor.
[2021-03-21] MEDS: traZODone 100 MG TABLET. PO SCH (20:50)
[2021-03-21] MEDS: MIRTAZAPINE 7.5 MG TABLET. PO SCH (20:50)
--- NOTE | 2021-03-21 22:09 | PDOC ---
Exam Note: Morgan Note: Please also refer to the separate dictated note~for this date of service dictated separately.~Patient seen individually. Discussed the patient with Nursing staff reviewed the chart.~Reviewed interim history and current functioning. Reviewed vital signs,~Labs/ Radiology~and current medications noted below. Continue current treatment with the changes noted in the dictated addendum note Assessment: Vital Signs/I&O: Vital Signs Date Time Temp Pulse Resp B/P (MAP) Pulse Ox O2 Delivery O2 Flow Rate FiO2 03/21/21 15:49 97.9 85 17 115/76 (89) 97 03/21/21 05:42 Room Air I & O 03/20/21 03/20/21 03/21/21 15:00 23:00 07:00 Intake Total 480 ml 480 ml Balance 480 ml 480 ml Current Medications: Meds: Current Medications Medications (Trade) Dose Ordered Sig/Wing Route PRN Reason Start Time Stop Time Status Last Admin Dose Admin Albuterol Sulfate (Ventolin) 2.5 mg PRN QID PRN IH wheezing 03/17/21 19:45 Furosemide (Lasix) 60 mg DAILY PO 03/18/21 09:00 03/21/21 08:21 Pantoprazole Sodium (Protonix) 40 mg BIDBFRMEAL PO 03/18/21 07:30 03/21/21 16:56 Fenofibrate (Tricor) 145 mg DAILY PO 03/18/21 09:00 03/21/21 08:20 Potassium Chloride (Klor-Con) 30 meq DAILYWBKFT PO 03/18/21 08:00 03/21/21 08:00 Rivaroxaban (Xarelto) 20 mg DAILYWSUP PO 03/17/21 20:00 03/21/21 16:56 Lorazepam (Ativan) 1 mg PRN TID PRN PO ANXIETY / AGITATION 03/17/21 19:45 03/17/21 20:19 Quetiapine Fumarate (SEROquel) 50 mg DAILYWSUP PO 03/17/21 20:00 03/19/21 11:53 DC 03/18/21 17:15 Sertraline HCl (Zoloft) 200 mg DAILY PO 03/18/21 09:00 03/21/21 08:20 Temazepam (Restoril) 15 mg PRN QHS PRN PO INSOMNIA 03/17/21 19:45 03/17/21 22:34 Trazodone HCl (Desyrel) 100 mg HS PO 03/17/21 21:00 03/21/21 20:50 Acetaminophen (Tylenol) 650 mg PRN Q6HRS PRN PO MILD PAIN / TEMP > 100.3'F 03/17/21 19:45 03/19/21 08:36 Multi-Ingredient Ointment (Analgesic [place]) 1 ravin PRN QID PRN TP MUSCLE PAIN 03/17/21 19:45 Al Hydroxide/Mg Hydroxide (Mylanta Plus Xs) 15 ml PRN AFTMEALHC PRN PO DYSPEPSIA 03/17/21 19:45 Magnesium Hydroxide (Milk Of Magnesia) 2,400 mg PRN QHS PRN PO CONSTIPATION 03/17/21 19:45 Mirtazapine (Remeron) 7.5 mg QHS PO 03/18/21 21:00 03/21/21 20:50 Olanzapine (ZyPREXA ZYDIS) 2.5 mg PRN Q2HRS PRN PO PSYCHOSIS 03/18/21 10:30 03/18/21 13:50 Vitamin D (Vitamin D3) 50,000 unit WEEKLY PO 03/18/21 18:00 03/18/21 17:45 Ferrous Sulfate (Feosol) 325 mg BIDWMEALS PO 03/18/21 18:00 03/21/21 16:56 Ascorbic Acid (Vitamin C) 500 mg BID PO 03/18/21 21:00 03/21/21 20:50 Vitamin D (Vitamin D3) 50,000 unit WEEKLY PO 03/19/21 09:00 03/18/21 17:45 DC Ferrous Sulfate (Feosol) 325 mg BID PO 03/18/21 21:00 03/18/21 17:45 DC Ascorbic Acid (Vitamin C) 500 mg BID PO 03/18/21 21:00 03/18/21 17:45 DC Quetiapine Fumarate (SEROquel) 25 mg 0900,1300,1700 PO 03/19/21 13:00 03/21/21 16:43 DC 03/21/21 13:27 Quetiapine Fumarate (SEROquel) 37.5 mg 0900,1300,1700 PO 03/21/21 17:00 03/21/21 16:56 Current Medications Medications (Trade) Dose Ordered Sig/Wing Route PRN Reason Start Time Stop Time Status Last Admin Dose Admin Quetiapine Fumarate (SEROquel) 37.5 mg 0900,1300,1700 PO 03/21/21 17:00 03/21/21 16:56 I have reviewed the current psychotropics carefully including drug interactions. Risk benefit ratio favors no change other than as noted in my dictated progress note. Diagnosis: Problems: (1) Major depressive disorder, recurrent episode (2) Impulse control disorder, unspecified (3) Anxiety disorder, unspecified (4) Major neurocognitive disorder (5) Dementia, vascular, with depression (6) Dementia, vascular, with delusions KADI YEPEZ MD Mar 21, 2021 22:09
[2021-03-22 05:56] VITALS: BP 130/71
[2021-03-22] MEDS: POTASSIUM CHLORIDE 10 MEQ TABLET.ER. PO SCH (08:00)
[2021-03-22] MEDS: PANTOPRAZOLE 40 MG TABLET. PO SCH ×2 (08:41→16:39)
[2021-03-22] MEDS: FERROUS SULFATE 325 MG TABLET. PO SCH ×2 (08:42→16:40)
[2021-03-22] MEDS: FENOFIBRATE NANOCRYSTALLIZED 145 MG TABLET PO SCH (08:42)
[2021-03-22] MEDS: FUROSEMIDE 20 MG TABLET PO SCH (08:42)
[2021-03-22] MEDS: QUEtiapine 25 MG TABLET. PO SCH ×3 (08:42→16:46)
[2021-03-22] MEDS: ASCORBIC ACID 500 MG TABLET PO SCH ×2 (08:42→19:59)
[2021-03-22] MEDS: SERTRALINE 100 MG TABLET. PO SCH (08:42)
--- NOTE | 2021-03-22 10:52 | NUR ---
Pt has been present and visible on the unit this shift. She does not interact much with others; she primarily sits in one spot and cries intermittently about wanting to go home. At times she was also sob "Yessenia." She is compliant with medications whole (the bigger tablets cut in 1/2). Absent of SI/HI/VH/AH/pain at this time. Plan of care continues, will pass to next shift.
[2021-03-22 15:28] VITALS: BP 121/78
[2021-03-22] MEDS: RIVAROXABAN 10 MG TABLET. PO SCH (16:40)
[2021-03-22] MEDS: traZODone 100 MG TABLET. PO SCH (19:59)
[2021-03-22] MEDS: MIRTAZAPINE 7.5 MG TABLET. PO SCH (19:59)
--- NOTE | 2021-03-22 22:16 | PDOC ---
Exam Note: Morgan Note: Please also refer to the separate dictated note~for this date of service dictated separately.~Patient seen individually. Discussed the patient with Nursing staff reviewed the chart.~Reviewed interim history and current functioning. Reviewed vital signs,~Labs/ Radiology~and current medications noted below. Continue current treatment with the changes noted in the dictated addendum note Assessment: Vital Signs/I&O: Vital Signs Date Time Temp Pulse Resp B/P (MAP) Pulse Ox O2 Delivery O2 Flow Rate FiO2 03/22/21 15:28 98.8 80 20 121/78 (92) 97 Room Air I & O 03/21/21 03/21/21 03/22/21 15:00 23:00 07:00 Intake Total 840 ml 240 ml Balance 840 ml 240 ml Current Medications: Meds: Current Medications Medications (Trade) Dose Ordered Sig/Wing Route PRN Reason Start Time Stop Time Status Last Admin Dose Admin Albuterol Sulfate (Ventolin) 2.5 mg PRN QID PRN IH wheezing 03/17/21 19:45 Furosemide (Lasix) 60 mg DAILY PO 03/18/21 09:00 03/22/21 08:42 Pantoprazole Sodium (Protonix) 40 mg BIDBFRMEAL PO 03/18/21 07:30 03/22/21 16:39 Fenofibrate (Tricor) 145 mg DAILY PO 03/18/21 09:00 03/22/21 08:42 Potassium Chloride (Klor-Con) 30 meq DAILYWBKFT PO 03/18/21 08:00 03/22/21 08:00 Rivaroxaban (Xarelto) 20 mg DAILYWSUP PO 03/17/21 20:00 03/22/21 16:40 Lorazepam (Ativan) 1 mg PRN TID PRN PO ANXIETY / AGITATION 03/17/21 19:45 03/17/21 20:19 Quetiapine Fumarate (SEROquel) 50 mg DAILYWSUP PO 03/17/21 20:00 03/19/21 11:53 DC 03/18/21 17:15 Sertraline HCl (Zoloft) 200 mg DAILY PO 03/18/21 09:00 03/22/21 19:40 DC 03/22/21 08:42 Temazepam (Restoril) 15 mg PRN QHS PRN PO INSOMNIA 03/17/21 19:45 8/14/21 22:34 Trazodone HCl (Desyrel) 100 mg HS PO 03/17/21 21:00 03/22/21 19:59 Acetaminophen (Tylenol) 650 mg PRN Q6HRS PRN PO MILD PAIN / TEMP > 100.3'F 03/17/21 19:45 03/19/21 08:36 Multi-Ingredient Ointment (Analgesic [place]) 1 ravin PRN QID PRN TP MUSCLE PAIN 03/17/21 19:45 Al Hydroxide/Mg Hydroxide (Mylanta Plus Xs) 15 ml PRN AFTMEALHC PRN PO DYSPEPSIA 03/17/21 19:45 Magnesium Hydroxide (Milk Of Magnesia) 2,400 mg PRN QHS PRN PO CONSTIPATION 03/17/21 19:45 Mirtazapine (Remeron) 7.5 mg QHS PO 03/18/21 21:00 03/22/21 19:59 Olanzapine (ZyPREXA ZYDIS) 2.5 mg PRN Q2HRS PRN PO PSYCHOSIS 03/18/21 10:30 03/18/21 13:50 Vitamin D (Vitamin D3) 50,000 unit WEEKLY PO 03/18/21 18:00 03/18/21 17:45 Ferrous Sulfate (Feosol) 325 mg BIDWMEALS PO 03/18/21 18:00 03/22/21 16:40 Ascorbic Acid (Vitamin C) 500 mg BID PO 03/18/21 21:00 03/22/21 19:59 Vitamin D (Vitamin D3) 50,000 unit WEEKLY PO 03/19/21 09:00 03/18/21 17:45 DC Ferrous Sulfate (Feosol) 325 mg BID PO 03/18/21 21:00 03/18/21 17:45 DC Ascorbic Acid (Vitamin C) 500 mg BID PO 03/18/21 21:00 03/18/21 17:45 DC Quetiapine Fumarate (SEROquel) 25 mg 0900,1300,1700 PO 03/19/21 13:00 03/21/21 16:43 DC 03/21/21 13:27 Quetiapine Fumarate (SEROquel) 37.5 mg 0900,1300,1700 PO 03/21/21 17:00 8/19/21 16:40 DC 03/22/21 12:37 Quetiapine Fumarate (SEROquel) 37.5 mg 1300,1700 PO 03/22/21 17:00 03/22/21 16:46 Quetiapine Fumarate (SEROquel) 50 mg 0900 PO 03/23/21 09:00 Sertraline HCl (Zoloft) 100 mg DAILY PO 03/23/21 09:00 Sertraline HCl (Zoloft) 50 mg DAILY PO 03/23/21 09:00 Current Medications Medications (Trade) Dose Ordered Sig/Wing Route PRN Reason Start Time Stop Time Status Last Admin Dose Admin Quetiapine Fumarate (SEROquel) 37.5 mg 1300,1700 PO 03/22/21 17:00 03/22/21 16:46 I have reviewed the current psychotropics carefully including drug interactions. Risk benefit ratio favors no change other than as noted in my dictated progress note. Diagnosis: Problems: (1) Major depressive disorder, recurrent episode (2) Impulse control disorder, unspecified (3) Anxiety disorder, unspecified (4) Major neurocognitive disorder (5) Dementia, vascular, with depression (6) Dementia, vascular, with delusions KADI YEPEZ MD Mar 22, 2021 22:16
--- NOTE | 2021-03-22 23:22 | NUR ---
This evening pt sat in a chair in the hallway crying intermittently. She took meds whole without difficulty. She was cooperative with cares and has been sleeping since going to bed.
[2021-03-23 06:16] VITALS: BP 143/80
--- NOTE | 2021-03-23 06:50 | PDOC ---
Exam Note: Morgan Note: This note is a late entry for 03/21/2021 covers elements not covered in my initial note. Subjective: The patient was seen face to face in the evening of 03/21/2021 with Padmini MONTERO, discussed and reviewed the chart. The patient slept 5 hours previous night. She has crying spells and whining, repeatedly calling out for Paula, her daughter. We have increased the Seroquel to 37.5 mg t.i.d. This is in place of 25 mg t.i.d. Review of Systems: No CV, , pulmonary, eye, ENT system symptoms on review. Mental Status Exam: The patient is oriented to herself. Insight and judgment, recent and remote memory, attention and concentration, fund of knowledge is poor consistent with her diagnoses. Laboratory Data: Reviewed. Impression: Major neurocognitive disorder Alzheimer, vascular with delusion, depression, behavioral disturbance. Anxiety disorder unspecified. Impulse control disorder unspecified. Major depressive disorder recurrent. Plan: Continue current psychotropics. Adjust further as clinically indicated. Assessment: Vital Signs/I&O: Vital Signs Date Time Temp Pulse Resp B/P (MAP) Pulse Ox O2 Delivery O2 Flow Rate FiO2 03/23/21 06:16 98.5 87 16 143/80 (101) 98 03/22/21 15:28 Room Air I & O 03/22/21 03/22/21 03/23/21 15:00 23:00 07:00 Intake Total 720 ml 360 ml Balance 720 ml 360 ml Current Medications: Meds: Current Medications Medications (Trade) Dose Ordered Sig/Wing Route PRN Reason Start Time Stop Time Status Last Admin Dose Admin Albuterol Sulfate (Ventolin) 2.5 mg PRN QID PRN IH wheezing 03/17/21 19:45 Furosemide (Lasix) 60 mg DAILY PO 03/18/21 09:00 03/22/21 08:42 Pantoprazole Sodium (Protonix) 40 mg BIDBFRMEAL PO 03/18/21 07:30 03/22/21 16:39 Fenofibrate (Tricor) 145 mg DAILY PO 03/18/21 09:00 03/22/21 08:42 Potassium Chloride (Klor-Con) 30 meq DAILYWBKFT PO 03/18/21 08:00 03/22/21 08:00 Rivaroxaban (Xarelto) 20 mg DAILYWSUP PO 03/17/21 20:00 03/22/21 16:40 Lorazepam (Ativan) 1 mg PRN TID PRN PO ANXIETY / AGITATION 03/17/21 19:45 03/17/21 20:19 Quetiapine Fumarate (SEROquel) 50 mg DAILYWSUP PO 03/17/21 20:00 03/19/21 11:53 DC 03/18/21 17:15 Sertraline HCl (Zoloft) 200 mg DAILY PO 03/18/21 09:00 03/22/21 19:40 DC 03/22/21 08:42 Temazepam (Restoril) 15 mg PRN QHS PRN PO INSOMNIA 03/17/21 19:45 03/17/21 22:34 Trazodone HCl (Desyrel) 100 mg HS PO 03/17/21 21:00 03/22/21 19:59 Acetaminophen (Tylenol) 650 mg PRN Q6HRS PRN PO MILD PAIN / TEMP > 100.3'F 03/17/21 19:45 03/19/21 08:36 Multi-Ingredient Ointment (Analgesic [place]) 1 ravin PRN QID PRN TP MUSCLE PAIN 03/17/21 19:45 Al Hydroxide/Mg Hydroxide (Mylanta Plus Xs) 15 ml PRN AFTMEALHC PRN PO DYSPEPSIA 03/17/21 19:45 Magnesium Hydroxide (Milk Of Magnesia) 2,400 mg PRN QHS PRN PO CONSTIPATION 03/17/21 19:45 Mirtazapine (Remeron) 7.5 mg QHS PO 03/18/21 21:00 03/22/21 19:59 Olanzapine (ZyPREXA ZYDIS) 2.5 mg PRN Q2HRS PRN PO PSYCHOSIS 03/18/21 10:30 03/18/21 13:50 Vitamin D (Vitamin D3) 50,000 unit WEEKLY PO 03/18/21 18:00 03/18/21 17:45 Ferrous Sulfate (Feosol) 325 mg BIDWMEALS PO 03/18/21 18:00 03/22/21 16:40 Ascorbic Acid (Vitamin C) 500 mg BID PO 03/18/21 21:00 03/22/21 19:59 Vitamin D (Vitamin D3) 50,000 unit WEEKLY PO 03/19/21 09:00 03/18/21 17:45 DC Ferrous Sulfate (Feosol) 325 mg BID PO 03/18/21 21:00 03/18/21 17:45 DC Ascorbic Acid (Vitamin C) 500 mg BID PO 03/18/21 21:00 03/18/21 17:45 DC Quetiapine Fumarate (SEROquel) 25 mg 0900,1300,1700 PO 03/19/21 13:00 03/21/21 16:43 DC 03/21/21 13:27 Quetiapine Fumarate (SEROquel) 37.5 mg 0900,1300,1700 PO 03/21/21 17:00 03/22/21 16:40 DC 03/22/21 12:37 Quetiapine Fumarate (SEROquel) 37.5 mg 1300,1700 PO 03/22/21 17:00 03/22/21 16:46 Quetiapine Fumarate (SEROquel) 50 mg 0900 PO 03/23/21 09:00 Sertraline HCl (Zoloft) 100 mg DAILY PO 03/23/21 09:00 Sertraline HCl (Zoloft) 50 mg DAILY PO 03/23/21 09:00 Current Medications Medications (Trade) Dose Ordered Sig/Wing Route PRN Reason Start Time Stop Time Status Last Admin Dose Admin Quetiapine Fumarate (SEROquel) 37.5 mg 1300,1700 PO 03/22/21 17:00 03/22/21 16:46 I have reviewed the current psychotropics carefully including drug interactions. Risk benefit ratio favors no change other than as noted in my dictated progress note. Diagnosis: Problems: (1) Major depressive disorder, recurrent episode (2) Impulse control disorder, unspecified (3) Anxiety disorder, unspecified (4) Major neurocognitive disorder (5) Dementia, vascular, with depression (6) Dementia, vascular, with delusions KADI YEPEZ MD Mar 23, 2021 06:50
--- NOTE | 2021-03-23 07:02 | PDOC ---
Exam Note: Morgan Note: This note is a late entry for 03/22/2021 covers elements not covered in my initial note. Subjective: The patient was seen face to face in the evening of 03/22/2021 with Sarai MONTERO, discussed and reviewed the chart. The patient slept 7-3/4 hours previous night. She continues to repeatedly yell out for Paula, her daughter, crying. As I met with her she was quite anxious, asking about when she would be discharged. We discussed her mood lability and she showed some insight. We will increase the morning Seroquel from 37.5 mg to 50 mg to help with her mood lability. Family is concerned about the dosage of Sertraline at 200 mg given her age. Given her ongoing mood lability, crying spells, depressive symptoms, this seems appropriate but since we are increasing the Seroquel and given the familys concern, I will go ahead and drop it down to 150 mg a day for now. Review of Systems: No CV, , pulmonary, eye, ENT system symptoms on review. Mental Status Exam: The patient is oriented to herself. Insight and judgment, recent and remote memory, attention and concentration, fund of knowledge is poor consistent with her diagnoses. Laboratory Data: Reviewed. Impression: Major neurocognitive disorder Alzheimer, vascular with delusion, depression, behavioral disturbance. Anxiety disorder unspecified. Impulse control disorder unspecified. Major depressive disorder recurrent. Plan: Continue current psychotropics unchanged and noted as above. Assessment: Vital Signs/I&O: Vital Signs Date Time Temp Pulse Resp B/P (MAP) Pulse Ox O2 Delivery O2 Flow Rate FiO2 03/23/21 06:16 98.5 87 16 143/80 (101) 98 03/22/21 15:28 Room Air I & O 03/22/21 03/22/21 03/23/21 15:00 23:00 07:00 Intake Total 720 ml 360 ml Balance 720 ml 360 ml Current Medications: Meds: Current Medications Medications (Trade) Dose Ordered Sig/Wing Route PRN Reason Start Time Stop Time Status Last Admin Dose Admin Albuterol Sulfate (Ventolin) 2.5 mg PRN QID PRN IH wheezing 03/17/21 19:45 Furosemide (Lasix) 60 mg DAILY PO 03/18/21 09:00 03/22/21 08:42 Pantoprazole Sodium (Protonix) 40 mg BIDBFRMEAL PO 03/18/21 07:30 03/22/21 16:39 Fenofibrate (Tricor) 145 mg DAILY PO 03/18/21 09:00 03/22/21 08:42 Potassium Chloride (Klor-Con) 30 meq DAILYWBKFT PO 03/18/21 08:00 03/22/21 08:00 Rivaroxaban (Xarelto) 20 mg DAILYWSUP PO 03/17/21 20:00 03/22/21 16:40 Lorazepam (Ativan) 1 mg PRN TID PRN PO ANXIETY / AGITATION 03/17/21 19:45 03/17/21 20:19 Quetiapine Fumarate (SEROquel) 50 mg DAILYWSUP PO 03/17/21 20:00 03/19/21 11:53 DC 03/18/21 17:15 Sertraline HCl (Zoloft) 200 mg DAILY PO 03/18/21 09:00 03/22/21 19:40 DC 03/22/21 08:42 Temazepam (Restoril) 15 mg PRN QHS PRN PO INSOMNIA 03/17/21 19:45 03/17/21 22:34 Trazodone HCl (Desyrel) 100 mg HS PO 03/17/21 21:00 03/22/21 19:59 Acetaminophen (Tylenol) 650 mg PRN Q6HRS PRN PO MILD PAIN / TEMP > 100.3'F 03/17/21 19:45 03/19/21 08:36 Multi-Ingredient Ointment (Analgesic [place]) 1 ravin PRN QID PRN TP MUSCLE PAIN 03/17/21 19:45 Al Hydroxide/Mg Hydroxide (Mylanta Plus Xs) 15 ml PRN AFTMEALHC PRN PO DYSPEPSIA 03/17/21 19:45 Magnesium Hydroxide (Milk Of Magnesia) 2,400 mg PRN QHS PRN PO CONSTIPATION 03/17/21 19:45 Mirtazapine (Remeron) 7.5 mg QHS PO 03/18/21 21:00 03/22/21 19:59 Olanzapine (ZyPREXA ZYDIS) 2.5 mg PRN Q2HRS PRN PO PSYCHOSIS 03/18/21 10:30 03/18/21 13:50 Vitamin D (Vitamin D3) 50,000 unit WEEKLY PO 03/18/21 18:00 03/18/21 17:45 Ferrous Sulfate (Feosol) 325 mg BIDWMEALS PO 03/18/21 18:00 03/22/21 16:40 Ascorbic Acid (Vitamin C) 500 mg BID PO 03/18/21 21:00 03/22/21 19:59 Vitamin D (Vitamin D3) 50,000 unit WEEKLY PO 03/19/21 09:00 03/18/21 17:45 DC Ferrous Sulfate (Feosol) 325 mg BID PO 03/18/21 21:00 03/18/21 17:45 DC Ascorbic Acid (Vitamin C) 500 mg BID PO 03/18/21 21:00 03/18/21 17:45 DC Quetiapine Fumarate (SEROquel) 25 mg 0900,1300,1700 PO 03/19/21 13:00 03/21/21 16:43 DC 03/21/21 13:27 Quetiapine Fumarate (SEROquel) 37.5 mg 0900,1300,1700 PO 03/21/21 17:00 03/22/21 16:40 DC 03/22/21 12:37 Quetiapine Fumarate (SEROquel) 37.5 mg 1300,1700 PO 03/22/21 17:00 03/22/21 16:46 Quetiapine Fumarate (SEROquel) 50 mg 0900 PO 03/23/21 09:00 Sertraline HCl (Zoloft) 100 mg DAILY PO 03/23/21 09:00 Sertraline HCl (Zoloft) 50 mg DAILY PO 03/23/21 09:00 Current Medications Medications (Trade) Dose Ordered Sig/Wing Route PRN Reason Start Time Stop Time Status Last Admin Dose Admin Quetiapine Fumarate (SEROquel) 37.5 mg 1300,1700 PO 03/22/21 17:00 03/22/21 16:46 I have reviewed the current psychotropics carefully including drug interactions. Risk benefit ratio favors no change other than as noted in my dictated progress note. Diagnosis: Problems: (1) Major depressive disorder, recurrent episode (2) Impulse control disorder, unspecified (3) Anxiety disorder, unspecified (4) Major neurocognitive disorder (5) Dementia, vascular, with depression (6) Dementia, vascular, with delusions KADI YEPEZ MD Mar 23, 2021 07:02
[2021-03-23] MEDS: QUEtiapine 50 MG TABLET. PO SCH (08:13)
[2021-03-23] MEDS: ASCORBIC ACID 500 MG TABLET PO SCH ×2 (08:13→20:08)
[2021-03-23] MEDS: FERROUS SULFATE 325 MG TABLET. PO SCH ×2 (08:13→16:47)
[2021-03-23] MEDS: SERTRALINE 100 MG TABLET. PO SCH (08:13)
[2021-03-23] MEDS: PANTOPRAZOLE 40 MG TABLET. PO SCH ×2 (08:13→16:47)
[2021-03-23] MEDS: FENOFIBRATE NANOCRYSTALLIZED 145 MG TABLET PO SCH (08:13)
[2021-03-23] MEDS: SERTRALINE 50 MG TABLET. PO SCH (08:13)
[2021-03-23] MEDS: POTASSIUM CHLORIDE 10 MEQ TABLET.ER. PO SCH (08:14)
[2021-03-23] MEDS: FUROSEMIDE 20 MG TABLET PO SCH (08:14)
--- NOTE | 2021-03-23 09:29 | NUR ---
Pt remains tearful early this morning, even crying while eating breakfast. She is compliant with whole medications with encouragement. Pt remains confused and disorganized, A&O to self only. She asked this nurse if I knew who her daughter Paula was, I did reply that I have spoken to her on the phone the previous day. Pt at times cries about wanting to go home, cries for her daughter, and cries for really no particular reason. Pt absent of SI/HI/VH/AH/delusions at this time, she denies pain when asked. Plan of care continues, will pass to next shift.
[2021-03-23] MEDS: QUEtiapine 25 MG TABLET. PO SCH ×2 (12:32→16:47)
[2021-03-23 15:45] VITALS: BP 114/72
[2021-03-23] MEDS: RIVAROXABAN 10 MG TABLET. PO SCH (16:47)
[2021-03-23] MEDS: traZODone 100 MG TABLET. PO SCH (20:08)
[2021-03-23] MEDS: MIRTAZAPINE 7.5 MG TABLET. PO SCH (20:08)
--- NOTE | 2021-03-23 22:06 | PDOC ---
Exam Note: Morgan Note: Please also refer to the separate dictated note~for this date of service dictated separately.~Patient seen individually. Discussed the patient with Nursing staff reviewed the chart.~Reviewed interim history and current functioning. Reviewed vital signs,~Labs/ Radiology~and current medications noted below. Continue current treatment with the changes noted in the dictated addendum note Assessment: Vital Signs/I&O: Vital Signs Date Time Temp Pulse Resp B/P (MAP) Pulse Ox O2 Delivery O2 Flow Rate FiO2 03/23/21 15:45 97.8 86 18 114/72 (86) 95 03/22/21 15:28 Room Air I & O 03/22/21 03/22/21 03/23/21 15:00 23:00 07:00 Intake Total 720 ml 360 ml Balance 720 ml 360 ml Current Medications: Meds: Current Medications Medications (Trade) Dose Ordered Sig/Wing Route PRN Reason Start Time Stop Time Status Last Admin Dose Admin Albuterol Sulfate (Ventolin) 2.5 mg PRN QID PRN IH wheezing 03/17/21 19:45 Furosemide (Lasix) 60 mg DAILY PO 03/18/21 09:00 03/23/21 08:14 Pantoprazole Sodium (Protonix) 40 mg BIDBFRMEAL PO 03/18/21 07:30 03/23/21 16:47 Fenofibrate (Tricor) 145 mg DAILY PO 03/18/21 09:00 03/23/21 08:13 Potassium Chloride (Klor-Con) 30 meq DAILYWBKFT PO 03/18/21 08:00 03/23/21 08:14 Rivaroxaban (Xarelto) 20 mg DAILYWSUP PO 03/17/21 20:00 03/23/21 16:47 Lorazepam (Ativan) 1 mg PRN TID PRN PO ANXIETY / AGITATION 03/17/21 19:45 03/17/21 20:19 Quetiapine Fumarate (SEROquel) 50 mg DAILYWSUP PO 03/17/21 20:00 03/19/21 11:53 DC 03/18/21 17:15 Sertraline HCl (Zoloft) 200 mg DAILY PO 03/18/21 09:00 03/22/21 19:40 DC 03/22/21 08:42 Temazepam (Restoril) 15 mg PRN QHS PRN PO INSOMNIA 03/17/21 19:45 03/17/21 22:34 Trazodone HCl (Desyrel) 100 mg HS PO 03/17/21 21:00 03/23/21 20:08 Acetaminophen (Tylenol) 650 mg PRN Q6HRS PRN PO MILD PAIN / TEMP > 100.3'F 03/17/21 19:45 03/19/21 08:36 Multi-Ingredient Ointment (Analgesic [place]) 1 ravin PRN QID PRN TP MUSCLE PAIN 03/17/21 19:45 Al Hydroxide/Mg Hydroxide (Mylanta Plus Xs) 15 ml PRN AFTMEALHC PRN PO DYSPEPSIA 03/17/21 19:45 Magnesium Hydroxide (Milk Of Magnesia) 2,400 mg PRN QHS PRN PO CONSTIPATION 03/17/21 19:45 Mirtazapine (Remeron) 7.5 mg QHS PO 03/18/21 21:00 03/23/21 20:08 Olanzapine (ZyPREXA ZYDIS) 2.5 mg PRN Q2HRS PRN PO PSYCHOSIS 03/18/21 10:30 03/18/21 13:50 Vitamin D (Vitamin D3) 50,000 unit WEEKLY PO 03/18/21 18:00 03/18/21 17:45 Ferrous Sulfate (Feosol) 325 mg BIDWMEALS PO 03/18/21 18:00 03/23/21 16:47 Ascorbic Acid (Vitamin C) 500 mg BID PO 03/18/21 21:00 03/23/21 20:08 Vitamin D (Vitamin D3) 50,000 unit WEEKLY PO 03/19/21 09:00 03/18/21 17:45 DC Ferrous Sulfate (Feosol) 325 mg BID PO 03/18/21 21:00 03/18/21 17:45 DC Ascorbic Acid (Vitamin C) 500 mg BID PO 03/18/21 21:00 03/18/21 17:45 DC Quetiapine Fumarate (SEROquel) 25 mg 0900,1300,1700 PO 03/19/21 13:00 03/21/21 16:43 DC 03/21/21 13:27 Quetiapine Fumarate (SEROquel) 37.5 mg 0900,1300,1700 PO 03/21/21 17:00 03/22/21 16:40 DC 03/22/21 12:37 Quetiapine Fumarate (SEROquel) 37.5 mg 1300,1700 PO 03/22/21 17:00 03/23/21 16:47 Quetiapine Fumarate (SEROquel) 50 mg 0900 PO 03/23/21 09:00 03/23/21 08:13 Sertraline HCl (Zoloft) 100 mg DAILY PO 03/23/21 09:00 03/23/21 08:13 Sertraline HCl (Zoloft) 50 mg DAILY PO 03/23/21 09:00 03/23/21 08:13 Current Medications Medications (Trade) Dose Ordered Sig/Wing Route PRN Reason Start Time Stop Time Status Last Admin Dose Admin Quetiapine Fumarate (SEROquel) 50 mg 0900 PO 03/23/21 09:00 03/23/21 08:13 Sertraline HCl (Zoloft) 100 mg DAILY PO 03/23/21 09:00 03/23/21 08:13 Sertraline HCl (Zoloft) 50 mg DAILY PO 03/23/21 09:00 03/23/21 08:13 I have reviewed the current psychotropics carefully including drug interactions. Risk benefit ratio favors no change other than as noted in my dictated progress note. Diagnosis: Problems: (1) Major depressive disorder, recurrent episode (2) Impulse control disorder, unspecified (3) Anxiety disorder, unspecified (4) Major neurocognitive disorder (5) Dementia, vascular, with depression (6) Dementia, vascular, with delusions KADI YEPEZ MD Mar 23, 2021 22:06
[2021-03-23] MEDS: TEMAZEPAM 15 MG CAPSULE PO PRN (22:08)
--- NOTE | 2021-03-23 22:10 | NUR ---
Before going to bed pt sat in the [facility] and was tearful a times, when asked why she was crying she said she wants to go home. Meds were taken whole and she was cooperative with care. After going to bed she laid in bed crying off and on. PRN med given.
[2021-03-24 05:42] VITALS: BP 138/79
--- NOTE | 2021-03-24 06:26 | NUR ---
While pt was being accompanied by a [employer] to BR with walker became weak and sat self on the floor. Pt was placed in WC by staff. No fall or injury to pt occurred. Pt remains tearful today and is saying she wants to go home.
[2021-03-24] MEDS: POTASSIUM CHLORIDE 10 MEQ TABLET.ER. PO SCH (08:29)
[2021-03-24] MEDS: FUROSEMIDE 20 MG TABLET PO SCH (08:29)
[2021-03-24] MEDS: SERTRALINE 50 MG TABLET. PO SCH (08:30)
[2021-03-24] MEDS: SERTRALINE 100 MG TABLET. PO SCH (08:30)
[2021-03-24] MEDS: FENOFIBRATE NANOCRYSTALLIZED 145 MG TABLET PO SCH (08:30)
[2021-03-24] MEDS: FERROUS SULFATE 325 MG TABLET. PO SCH ×2 (08:30→16:55)
[2021-03-24] MEDS: PANTOPRAZOLE 40 MG TABLET. PO SCH ×2 (08:30→16:55)
[2021-03-24] MEDS: QUEtiapine 50 MG TABLET. PO SCH (08:30)
[2021-03-24] MEDS: ASCORBIC ACID 500 MG TABLET PO SCH ×2 (08:30→20:13)
[2021-03-24] MEDS: QUEtiapine 25 MG TABLET. PO SCH ×2 (13:44→16:55)
--- NOTE | 2021-03-24 14:13 | NUR ---
Nursing note: Patient in [facility] for morning medications & assessment, medications taken whole. She is A/O to self, whimpering all day, calling out that she wants to go home, see her kids, & calling out for daughter. She uses wheelchair pushed by staff to move through unit She has a walker that she uses with increased encouragement, but can be unsteady at times. Denies pain/discomfort at this time. Patient is currently sitting in [facility]. Will continue to monitor.
[2021-03-24 15:49] VITALS: BP 110/68
[2021-03-24] MEDS: RIVAROXABAN 10 MG TABLET. PO SCH (16:55)
[2021-03-24] MEDS: traZODone 100 MG TABLET. PO SCH (20:14)
[2021-03-24] MEDS: MIRTAZAPINE 7.5 MG TABLET. PO SCH (20:14)
--- NOTE | 2021-03-24 21:58 | PDOC ---
Exam Note: Morgan Note: Please also refer to the separate dictated note~for this date of service dictated separately.~Patient seen individually. Discussed the patient with Nursing staff reviewed the chart.~Reviewed interim history and current functioning. Reviewed vital signs,~Labs/ Radiology~and current medications noted below. Continue current treatment with the changes noted in the dictated addendum note Assessment: Vital Signs/I&O: Vital Signs Date Time Temp Pulse Resp B/P (MAP) Pulse Ox O2 Delivery O2 Flow Rate FiO2 03/24/21 15:49 98.0 89 16 110/68 (82) 97 03/22/21 15:28 Room Air I & O 03/23/21 03/23/21 03/24/21 15:00 23:00 07:00 Intake Total 200 ml 320 ml Balance 200 ml 320 ml Current Medications: Meds: Current Medications Medications (Trade) Dose Ordered Sig/Wing Route PRN Reason Start Time Stop Time Status Last Admin Dose Admin Albuterol Sulfate (Ventolin) 2.5 mg PRN QID PRN IH wheezing 03/17/21 19:45 Furosemide (Lasix) 60 mg DAILY PO 03/18/21 09:00 03/24/21 08:29 Pantoprazole Sodium (Protonix) 40 mg BIDBFRMEAL PO 03/18/21 07:30 03/24/21 16:55 Fenofibrate (Tricor) 145 mg DAILY PO 03/18/21 09:00 03/24/21 08:30 Potassium Chloride (Klor-Con) 30 meq DAILYWBKFT PO 03/18/21 08:00 03/24/21 08:29 Rivaroxaban (Xarelto) 20 mg DAILYWSUP PO 03/17/21 20:00 03/24/21 16:55 Lorazepam (Ativan) 1 mg PRN TID PRN PO ANXIETY / AGITATION 03/17/21 19:45 03/17/21 20:19 Quetiapine Fumarate (SEROquel) 50 mg DAILYWSUP PO 03/17/21 20:00 03/19/21 11:53 DC 03/18/21 17:15 Sertraline HCl (Zoloft) 200 mg DAILY PO 03/18/21 09:00 03/22/21 19:40 DC 03/22/21 08:42 Temazepam (Restoril) 15 mg PRN QHS PRN PO INSOMNIA 03/17/21 19:45 03/23/21 22:08 Trazodone HCl (Desyrel) 100 mg HS PO 03/17/21 21:00 03/24/21 20:14 Acetaminophen (Tylenol) 650 mg PRN Q6HRS PRN PO MILD PAIN / TEMP > 100.3'F 03/17/21 19:45 03/19/21 08:36 Multi-Ingredient Ointment (Analgesic [place]) 1 ravin PRN QID PRN TP MUSCLE PAIN 03/17/21 19:45 Al Hydroxide/Mg Hydroxide (Mylanta Plus Xs) 15 ml PRN AFTMEALHC PRN PO DYSPEPSIA 03/17/21 19:45 Magnesium Hydroxide (Milk Of Magnesia) 2,400 mg PRN QHS PRN PO CONSTIPATION 03/17/21 19:45 Mirtazapine (Remeron) 7.5 mg QHS PO 03/18/21 21:00 03/24/21 20:14 Olanzapine (ZyPREXA ZYDIS) 2.5 mg PRN Q2HRS PRN PO PSYCHOSIS 03/18/21 10:30 03/18/21 13:50 Vitamin D (Vitamin D3) 50,000 unit WEEKLY PO 03/18/21 18:00 03/18/21 17:45 Ferrous Sulfate (Feosol) 325 mg BIDWMEALS PO 03/18/21 18:00 03/24/21 16:55 Ascorbic Acid (Vitamin C) 500 mg BID PO 03/18/21 21:00 03/24/21 20:13 Vitamin D (Vitamin D3) 50,000 unit WEEKLY PO 03/19/21 09:00 03/18/21 17:45 DC Ferrous Sulfate (Feosol) 325 mg BID PO 03/18/21 21:00 03/18/21 17:45 DC Ascorbic Acid (Vitamin C) 500 mg BID PO 03/18/21 21:00 03/18/21 17:45 DC Quetiapine Fumarate (SEROquel) 25 mg 0900,1300,1700 PO 03/19/21 13:00 03/21/21 16:43 DC 03/21/21 13:27 Quetiapine Fumarate (SEROquel) 37.5 mg 0900,1300,1700 PO 03/21/21 17:00 03/22/21 16:40 DC 03/22/21 12:37 Quetiapine Fumarate (SEROquel) 37.5 mg 1300,1700 PO 03/22/21 17:00 03/24/21 02:09 DC 03/23/21 16:47 Quetiapine Fumarate (SEROquel) 50 mg 0900 PO 03/23/21 09:00 03/24/21 08:30 Sertraline HCl (Zoloft) 100 mg DAILY PO 03/23/21 09:00 03/24/21 21:11 DC 03/24/21 08:30 Sertraline HCl (Zoloft) 50 mg DAILY PO 03/23/21 09:00 03/24/21 21:11 DC 03/24/21 08:30 Quetiapine Fumarate (SEROquel) 37.5 mg DAILY@1700 PO 03/24/21 17:00 03/24/21 16:55 Quetiapine Fumarate (SEROquel) 50 mg DAILY@1400 PO 03/24/21 14:00 03/24/21 13:44 Duloxetine HCl (Cymbalta) 30 mg DAILY PO 03/25/21 09:00 03/27/21 11:00 Duloxetine HCl (Cymbalta) 60 mg DAILY PO 03/28/21 09:00 Current Medications Medications (Trade) Dose Ordered Sig/Wing Route PRN Reason Start Time Stop Time Status Last Admin Dose Admin Quetiapine Fumarate (SEROquel) 37.5 mg DAILY@1700 PO 03/24/21 17:00 03/24/21 16:55 Quetiapine Fumarate (SEROquel) 50 mg DAILY@1400 PO 03/24/21 14:00 03/24/21 13:44 I have reviewed the current psychotropics carefully including drug interactions. Risk benefit ratio favors no change other than as noted in my dictated progress note. Diagnosis: Problems: (1) Major depressive disorder, recurrent episode (2) Impulse control disorder, unspecified (3) Anxiety disorder, unspecified (4) Major neurocognitive disorder (5) Dementia, vascular, with depression (6) Dementia, vascular, with delusions KADI YEPEZ MD Mar 24, 2021 21:58
--- NOTE | 2021-03-24 23:32 | NUR ---
Patient is in her room on assumption of care, awake in bed. She is disorganized, depressed, tearful. She only nods her head in response to assessment questions. She was compliant with taking her medications whole. She denies any pain or discomfort. No delusions voiced so far this shift, and patient has not called out for her daughter. She appears to be sleeping comfortably at present time. Will continue to monitor.
[2021-03-25 06:41] VITALS: BP 161/90
[2021-03-25] MEDS: POTASSIUM CHLORIDE 10 MEQ TABLET.ER. PO SCH (08:00)
[2021-03-25] MEDS: FENOFIBRATE NANOCRYSTALLIZED 145 MG TABLET PO SCH (08:07)
[2021-03-25] MEDS: DULoxetine HCL 30 MG CAPSULE.DR PO SCH (08:07)
[2021-03-25] MEDS: QUEtiapine 50 MG TABLET. PO SCH (08:07)
[2021-03-25] MEDS: CHOLECALCIFEROL (VITAMIN D3) 50,000 UNIT CAPSULE PO SCH (08:07)
[2021-03-25] MEDS: ASCORBIC ACID 500 MG TABLET PO SCH ×2 (08:07→19:59)
[2021-03-25] MEDS: PANTOPRAZOLE 40 MG TABLET. PO SCH ×2 (08:07→16:40)
[2021-03-25] MEDS: FERROUS SULFATE 325 MG TABLET. PO SCH ×2 (08:07→16:41)
[2021-03-25] MEDS: FUROSEMIDE 20 MG TABLET PO SCH (08:08)
[2021-03-25 11:10] LABS: BASO # 0.1 x10^3/uL (0.0-0.2); BASO % 2 % (0-3); EOS # 0.1 x10^3/uL (0.0-0.7); EOS % 2 % (0-3); HEMATOCRIT 36.7 % (36.0-47.0); HEMOGLOBIN 10.4 g/dL (12.0-15.5); LYMPH # 0.7 x10^3/uL (1.0-4.8); LYMPH % 9 % (24-48); MEAN CORPUSCULAR HEMOGLOBIN 20 pg (25-35); MEAN CORPUSCULAR HGB CONC 28 g/dL (31-37); MEAN CORPUSCULAR VOLUME 71 fL (79-100); MONO # 0.6 x10^3/uL (0.0-1.1); MONO % 8 % (0-9); NEUT # 6.2 x10^3uL (1.8-7.7); NEUT % 80 % (31-73); PLATELET COUNT 486 x10^3/uL (140-400); RED BLOOD COUNT 5.15 x10^6/uL (3.50-5.40); RED CELL DISTRIBUTION WIDTH 22.1 % (11.5-14.5); WHITE BLOOD COUNT 7.8 x10^3/uL (4.0-11.0)
[2021-03-25 11:35] LABS: ALBUMIN 2.9 g/dL (3.4-5.0); ALBUMIN/GLOBULIN RATIO 0.7 (1.0-1.7); CALCIUM 8.9 mg/dL (8.5-10.1); CREATININE 0.6 mg/dL (0.6-1.0); GFR 96.4; POTASSIUM 4.2 mmol/L (3.5-5.1); TOTAL BILIRUBIN 0.7 mg/dL (0.2-1.0); TOTAL PROTEIN 7.1 g/dL (6.4-8.2)
[2021-03-25] MEDS: QUEtiapine 25 MG TABLET. PO SCH ×2 (13:27→16:40)
--- NOTE | 2021-03-25 13:57 | NUR ---
Nursing note: Patient in [facility] for morning medications & assessment, medications taken whole with pudding, some cheeking of medications noted. She is A/O to self, whimpering all day, calling out that she wants to go home, see her kids, & calling out for daughter. She is unable to state date. She uses wheelchair pushed by staff to move through unit She has a walker that she uses with increased encouragement, but can be unsteady at times. Denies pain/discomfort at this time. Patient is currently laying in bed. Will continue to monitor.
[2021-03-25 16:07] VITALS: BP 118/59
[2021-03-25] MEDS: RIVAROXABAN 10 MG TABLET. PO SCH (16:40)
[2021-03-25 19:38] LABS: PLT ESTIMATE INCREASED (ADEQUATE)
[2021-03-25 19:40] LABS: MICROCYTOSIS SLIGHT; POLYCHROMASIA PRESENT
[2021-03-25 19:41] LABS: ANISOCYTOSIS SLIGHT
[2021-03-25] MEDS: MIRTAZAPINE 7.5 MG TABLET. PO SCH (19:59)
[2021-03-25] MEDS: traZODone 100 MG TABLET. PO SCH (19:59)
--- NOTE | 2021-03-25 23:09 | PDOC ---
Exam Note: Morgan Note: Please also refer to the separate dictated note~for this date of service dictated separately.~Patient seen individually. Discussed the patient with Nursing staff reviewed the chart.~Reviewed interim history and current functioning. Reviewed vital signs,~Labs/ Radiology~and current medications noted below. Continue current treatment with the changes noted in the dictated addendum note Assessment: Vital Signs/I&O: Vital Signs Date Time Temp Pulse Resp B/P (MAP) Pulse Ox O2 Delivery O2 Flow Rate FiO2 03/25/21 16:07 97.8 83 20 118/59 (78) 96 03/22/21 15:28 Room Air I & O 03/24/21 03/24/21 03/25/21 15:00 23:00 07:00 Intake Total 960 ml 480 ml Balance 960 ml 480 ml Labs: Laboratory Tests Test 03/25/21 10:35 White Blood Count 7.8 x10^3/uL (4.0-11.0) Red Blood Count 5.15 x10^6/uL (3.50-5.40) Hemoglobin 10.4 g/dL (12.0-15.5) L Hematocrit 36.7 % (36.0-47.0) Mean Corpuscular Volume 71 fL (79-100) L Mean Corpuscular Hemoglobin 20 pg (25-35) L Mean Corpuscular Hemoglobin Concent 28 g/dL (31-37) L Red Cell Distribution Width 22.1 % (11.5-14.5) H Platelet Count 486 x10^3/uL (140-400) H Neutrophils (%) (Auto) 80 % (31-73) H Lymphocytes (%) (Auto) 9 % (24-48) L Monocytes (%) (Auto) 8 % (0-9) Eosinophils (%) (Auto) 2 % (0-3) Basophils (%) (Auto) 2 % (0-3) Neutrophils # (Auto) 6.2 x10^3uL (1.8-7.7) Lymphocytes # (Auto) 0.7 x10^3/uL (1.0-4.8) L Monocytes # (Auto) 0.6 x10^3/uL (0.0-1.1) Eosinophils # (Auto) 0.1 x10^3/uL (0.0-0.7) Basophils # (Auto) 0.1 x10^3/uL (0.0-0.2) Platelet Estimate Increased (ADEQUATE) Polychromasia Present Anisocytosis Slight Microcytosis Slight Sodium Level 142 mmol/L (136-145) Potassium Level 4.2 mmol/L (3.5-5.1) Chloride Level 106 mmol/L (98-107) Carbon Dioxide Level 29 mmol/L (21-32) Anion Gap 7 (6-14) Blood Urea Nitrogen 18 mg/dL (7-20) Creatinine 0.6 mg/dL (0.6-1.0) Estimated GFR (Cockcroft-Gault) 96.4 BUN/Creatinine Ratio 30 (6-20) H Glucose Level 220 mg/dL (70-99) H Calcium Level 8.9 mg/dL (8.5-10.1) Total Bilirubin 0.7 mg/dL (0.2-1.0) Aspartate Amino Transferase (AST) 26 U/L (15-37) Alanine Aminotransferase (ALT) 18 U/L (14-59) Alkaline Phosphatase 203 U/L (46-116) H Total Protein 7.1 g/dL (6.4-8.2) Albumin 2.9 g/dL (3.4-5.0) L Albumin/Globulin Ratio 0.7 (1.0-1.7) L Current Medications: Meds: Laboratory Tests Test 03/25/21 10:35 White Blood Count 7.8 x10^3/uL Red Blood Count 5.15 x10^6/uL Hemoglobin 10.4 g/dL Hematocrit 36.7 % Mean Corpuscular Volume 71 fL Mean Corpuscular Hemoglobin 20 pg Mean Corpuscular Hemoglobin Concent 28 g/dL Red Cell Distribution Width 22.1 % Platelet Count 486 x10^3/uL Neutrophils (%) (Auto) 80 % Lymphocytes (%) (Auto) 9 % Monocytes (%) (Auto) 8 % Eosinophils (%) (Auto) 2 % Basophils (%) (Auto) 2 % Neutrophils # (Auto) 6.2 x10^3uL Lymphocytes # (Auto) 0.7 x10^3/uL Monocytes # (Auto) 0.6 x10^3/uL Eosinophils # (Auto) 0.1 x10^3/uL Basophils # (Auto) 0.1 x10^3/uL Platelet Estimate Increased Polychromasia Present Anisocytosis Slight Microcytosis Slight Sodium Level 142 mmol/L Potassium Level 4.2 mmol/L Chloride Level 106 mmol/L Carbon Dioxide Level 29 mmol/L Anion Gap 7 Blood Urea Nitrogen 18 mg/dL Creatinine 0.6 mg/dL Estimated GFR (Cockcroft-Gault) 96.4 BUN/Creatinine Ratio 30 Glucose Level 220 mg/dL Calcium Level 8.9 mg/dL Total Bilirubin 0.7 mg/dL Aspartate Amino Transf (AST/SGOT) 26 U/L Alanine Aminotransferase (ALT/SGPT) 18 U/L Alkaline Phosphatase 203 U/L Total Protein 7.1 g/dL Albumin 2.9 g/dL Albumin/Globulin Ratio 0.7 Current Medications Medications (Trade) Dose Ordered Sig/Wing Route PRN Reason Start Time Stop Time Status Last Admin Dose Admin Albuterol Sulfate (Ventolin) 2.5 mg PRN QID PRN IH wheezing 03/17/21 19:45 Furosemide (Lasix) 60 mg DAILY PO 03/18/21 09:00 03/25/21 08:08 Pantoprazole Sodium (Protonix) 40 mg BIDBFRMEAL PO 03/18/21 07:30 03/25/21 16:40 Fenofibrate (Tricor) 145 mg DAILY PO 03/18/21 09:00 03/25/21 08:07 Potassium Chloride (Klor-Con) 30 meq DAILYWBKFT PO 03/18/21 08:00 03/25/21 08:00 Rivaroxaban (Xarelto) 20 mg DAILYWSUP PO 03/17/21 20:00 03/25/21 16:40 Lorazepam (Ativan) 1 mg PRN TID PRN PO ANXIETY / AGITATION 03/17/21 19:45 03/17/21 20:19 Quetiapine Fumarate (SEROquel) 50 mg DAILYWSUP PO 03/17/21 20:00 03/19/21 11:53 DC 03/18/21 17:15 Sertraline HCl (Zoloft) 200 mg DAILY PO 03/18/21 09:00 03/22/21 19:40 DC 03/22/21 08:42 Temazepam (Restoril) 15 mg PRN QHS PRN PO INSOMNIA 03/17/21 19:45 03/23/21 22:08 Trazodone HCl (Desyrel) 100 mg HS PO 03/17/21 21:00 03/25/21 19:59 Acetaminophen (Tylenol) 650 mg PRN Q6HRS PRN PO MILD PAIN / TEMP > 100.3'F 03/17/21 19:45 03/19/21 08:36 Multi-Ingredient Ointment (Analgesic [place]) 1 ravin PRN QID PRN TP MUSCLE PAIN 03/17/21 19:45 Al Hydroxide/Mg Hydroxide (Mylanta Plus Xs) 15 ml PRN AFTMEALHC PRN PO DYSPEPSIA 03/17/21 19:45 Magnesium Hydroxide (Milk Of Magnesia) 2,400 mg PRN QHS PRN PO CONSTIPATION 03/17/21 19:45 Mirtazapine (Remeron) 7.5 mg QHS PO 03/18/21 21:00 03/25/21 19:59 Olanzapine (ZyPREXA ZYDIS) 2.5 mg PRN Q2HRS PRN PO PSYCHOSIS 03/18/21 10:30 03/18/21 13:50 Vitamin D (Vitamin D3) 50,000 unit WEEKLY PO 03/18/21 18:00 03/25/21 08:07 Ferrous Sulfate (Feosol) 325 mg BIDWMEALS PO 03/18/21 18:00 03/25/21 16:41 Ascorbic Acid (Vitamin C) 500 mg BID PO 03/18/21 21:00 03/25/21 19:59 Vitamin D (Vitamin D3) 50,000 unit WEEKLY PO 03/19/21 09:00 03/18/21 17:45 DC Ferrous Sulfate (Feosol) 325 mg BID PO 03/18/21 21:00 03/18/21 17:45 DC Ascorbic Acid (Vitamin C) 500 mg BID PO 03/18/21 21:00 03/18/21 17:45 DC Quetiapine Fumarate (SEROquel) 25 mg 0900,1300,1700 PO 03/19/21 13:00 03/21/21 16:43 DC 03/21/21 13:27 Quetiapine Fumarate (SEROquel) 37.5 mg 0900,1300,1700 PO 03/21/21 17:00 03/22/21 16:40 DC 03/22/21 12:37 Quetiapine Fumarate (SEROquel) 37.5 mg 1300,1700 PO 03/22/21 17:00 03/24/21 02:09 DC 03/23/21 16:47 Quetiapine Fumarate (SEROquel) 50 mg 0900 PO 03/23/21 09:00 03/25/21 08:07 Sertraline HCl (Zoloft) 100 mg DAILY PO 03/23/21 09:00 03/24/21 21:11 DC 03/24/21 08:30 Sertraline HCl (Zoloft) 50 mg DAILY PO 03/23/21 09:00 03/24/21 21:11 DC 03/24/21 08:30 Quetiapine Fumarate (SEROquel) 37.5 mg DAILY@1700 PO 03/24/21 17:00 03/25/21 16:40 Quetiapine Fumarate (SEROquel) 50 mg DAILY@1400 PO 03/24/21 14:00 03/25/21 13:27 Duloxetine HCl (Cymbalta) 30 mg DAILY PO 03/25/21 09:00 03/27/21 11:00 03/25/21 08:07 Duloxetine HCl (Cymbalta) 60 mg DAILY PO 03/28/21 09:00 Current Medications Medications (Trade) Dose Ordered Sig/Wing Route PRN Reason Start Time Stop Time Status Last Admin Dose Admin Duloxetine HCl (Cymbalta) 30 mg DAILY PO 03/25/21 09:00 03/27/21 11:00 03/25/21 08:07 I have reviewed the current psychotropics carefully including drug interactions. Risk benefit ratio favors no change other than as noted in my dictated progress note. Diagnosis: Problems: (1) Major depressive disorder, recurrent episode (2) Impulse control disorder, unspecified (3) Anxiety disorder, unspecified (4) Major neurocognitive disorder (5) Dementia, vascular, with depression (6) Dementia, vascular, with delusions KADI YEPEZ MD Mar 25, 2021 23:09
[2021-03-26 06:00] VITALS: BP 124/78
--- NOTE | 2021-03-26 06:38 | PDOC ---
Exam Note: Morgan Note: This note is a late entry for 03/23/2021 covers elements not covered in my initial note. Subjective: The patient was seen face to face in the evening of 03/23/2021 with Noah MONTERO, discussed and reviewed the chart. The patient slept 9 hours previous night. She remains somewhat tearful, calling out for Paula. I met with her in the hallway outside her room. She was verbal, but somewhat anxious and labile in her mood, tearful. Review of Systems: Ambulation impaired in wheelchair. No CV, , pulmonary, eye, ENT system symptoms on review. Reliability poor. Mental Status Exam: The patient is oriented to herself. She remains anxious and tearful as I met with her. Insight and judgment, recent and remote memory, attention and concentration, fund of knowledge is poor consistent with her diagnoses. Laboratory Data: Reviewed. Impression: Major neurocognitive disorder Alzheimer, vascular with delusion, depression, behavioral disturbance. Anxiety disorder unspecified. Impulse control disorder unspecified. Major depressive disorder recurrent. Plan: Continue current psychotropics unchanged. Given her ongoing mood lability we will increase the 1 p.m. Seroquel from 37.5 mg to 50 mg a day and change Zoloft to Cymbalta 30 mg a day for 3 days and 60 mg a day. Adjust further as clinically indicated. Assessment: Vital Signs/I&O: Vital Signs Date Time Temp Pulse Resp B/P (MAP) Pulse Ox O2 Delivery O2 Flow Rate FiO2 03/26/21 06:00 97.6 83 18 124/78 (93) 97 03/22/21 15:28 Room Air I & O 03/25/21 03/25/21 03/26/21 15:00 23:00 07:00 Intake Total 960 ml 360 ml 120 ml Balance 960 ml 360 ml 120 ml Labs: Laboratory Tests Test 03/25/21 10:35 White Blood Count 7.8 x10^3/uL (4.0-11.0) Red Blood Count 5.15 x10^6/uL (3.50-5.40) Hemoglobin 10.4 g/dL (12.0-15.5) L Hematocrit 36.7 % (36.0-47.0) Mean Corpuscular Volume 71 fL (79-100) L Mean Corpuscular Hemoglobin 20 pg (25-35) L Mean Corpuscular Hemoglobin Concent 28 g/dL (31-37) L Red Cell Distribution Width 22.1 % (11.5-14.5) H Platelet Count 486 x10^3/uL (140-400) H Neutrophils (%) (Auto) 80 % (31-73) H Lymphocytes (%) (Auto) 9 % (24-48) L Monocytes (%) (Auto) 8 % (0-9) Eosinophils (%) (Auto) 2 % (0-3) Basophils (%) (Auto) 2 % (0-3) Neutrophils # (Auto) 6.2 x10^3uL (1.8-7.7) Lymphocytes # (Auto) 0.7 x10^3/uL (1.0-4.8) L Monocytes # (Auto) 0.6 x10^3/uL (0.0-1.1) Eosinophils # (Auto) 0.1 x10^3/uL (0.0-0.7) Basophils # (Auto) 0.1 x10^3/uL (0.0-0.2) Platelet Estimate Increased (ADEQUATE) Polychromasia Present Anisocytosis Slight Microcytosis Slight Sodium Level 142 mmol/L (136-145) Potassium Level 4.2 mmol/L (3.5-5.1) Chloride Level 106 mmol/L (98-107) Carbon Dioxide Level 29 mmol/L (21-32) Anion Gap 7 (6-14) Blood Urea Nitrogen 18 mg/dL (7-20) Creatinine 0.6 mg/dL (0.6-1.0) Estimated GFR (Cockcroft-Gault) 96.4 BUN/Creatinine Ratio 30 (6-20) H Glucose Level 220 mg/dL (70-99) H Calcium Level 8.9 mg/dL (8.5-10.1) Total Bilirubin 0.7 mg/dL (0.2-1.0) Aspartate Amino Transferase (AST) 26 U/L (15-37) Alanine Aminotransferase (ALT) 18 U/L (14-59) Alkaline Phosphatase 203 U/L (46-116) H Total Protein 7.1 g/dL (6.4-8.2) Albumin 2.9 g/dL (3.4-5.0) L Albumin/Globulin Ratio 0.7 (1.0-1.7) L Current Medications: Meds: Laboratory Tests Test 03/25/21 10:35 White Blood Count 7.8 x10^3/uL Red Blood Count 5.15 x10^6/uL Hemoglobin 10.4 g/dL Hematocrit 36.7 % Mean Corpuscular Volume 71 fL Mean Corpuscular Hemoglobin 20 pg Mean Corpuscular Hemoglobin Concent 28 g/dL Red Cell Distribution Width 22.1 % Platelet Count 486 x10^3/uL Neutrophils (%) (Auto) 80 % Lymphocytes (%) (Auto) 9 % Monocytes (%) (Auto) 8 % Eosinophils (%) (Auto) 2 % Basophils (%) (Auto) 2 % Neutrophils # (Auto) 6.2 x10^3uL Lymphocytes # (Auto) 0.7 x10^3/uL Monocytes # (Auto) 0.6 x10^3/uL Eosinophils # (Auto) 0.1 x10^3/uL Basophils # (Auto) 0.1 x10^3/uL Platelet Estimate Increased Polychromasia Present Anisocytosis Slight Microcytosis Slight Sodium Level 142 mmol/L Potassium Level 4.2 mmol/L Chloride Level 106 mmol/L Carbon Dioxide Level 29 mmol/L Anion Gap 7 Blood Urea Nitrogen 18 mg/dL Creatinine 0.6 mg/dL Estimated GFR (Cockcroft-Gault) 96.4 BUN/Creatinine Ratio 30 Glucose Level 220 mg/dL Calcium Level 8.9 mg/dL Total Bilirubin 0.7 mg/dL Aspartate Amino Transf (AST/SGOT) 26 U/L Alanine Aminotransferase (ALT/SGPT) 18 U/L Alkaline Phosphatase 203 U/L Total Protein 7.1 g/dL Albumin 2.9 g/dL Albumin/Globulin Ratio 0.7 Current Medications Medications (Trade) Dose Ordered Sig/Wing Route PRN Reason Start Time Stop Time Status Last Admin Dose Admin Albuterol Sulfate (Ventolin) 2.5 mg PRN QID PRN IH wheezing 03/17/21 19:45 Furosemide (Lasix) 60 mg DAILY PO 03/18/21 09:00 03/25/21 08:08 Pantoprazole Sodium (Protonix) 40 mg BIDBFRMEAL PO 03/18/21 07:30 03/25/21 16:40 Fenofibrate (Tricor) 145 mg DAILY PO 03/18/21 09:00 03/25/21 08:07 Potassium Chloride (Klor-Con) 30 meq DAILYWBKFT PO 03/18/21 08:00 03/25/21 08:00 Rivaroxaban (Xarelto) 20 mg DAILYWSUP PO 03/17/21 20:00 03/25/21 16:40 Lorazepam (Ativan) 1 mg PRN TID PRN PO ANXIETY / AGITATION 03/17/21 19:45 03/17/21 20:19 Quetiapine Fumarate (SEROquel) 50 mg DAILYWSUP PO 03/17/21 20:00 03/19/21 11:53 DC 03/18/21 17:15 Sertraline HCl (Zoloft) 200 mg DAILY PO 03/18/21 09:00 03/22/21 19:40 DC 03/22/21 08:42 Temazepam (Restoril) 15 mg PRN QHS PRN PO INSOMNIA 03/17/21 19:45 03/23/21 22:08 Trazodone HCl (Desyrel) 100 mg HS PO 03/17/21 21:00 03/25/21 19:59 Acetaminophen (Tylenol) 650 mg PRN Q6HRS PRN PO MILD PAIN / TEMP > 100.3'F 03/17/21 19:45 03/19/21 08:36 Multi-Ingredient Ointment (Analgesic [place]) 1 ravin PRN QID PRN TP MUSCLE PAIN 03/17/21 19:45 Al Hydroxide/Mg Hydroxide (Mylanta Plus Xs) 15 ml PRN AFTMEALHC PRN PO DYSPEPSIA 03/17/21 19:45 Magnesium Hydroxide (Milk Of Magnesia) 2,400 mg PRN QHS PRN PO CONSTIPATION 03/17/21 19:45 Mirtazapine (Remeron) 7.5 mg QHS PO 03/18/21 21:00 03/25/21 19:59 Olanzapine (ZyPREXA ZYDIS) 2.5 mg PRN Q2HRS PRN PO PSYCHOSIS 03/18/21 10:30 03/18/21 13:50 Vitamin D (Vitamin D3) 50,000 unit WEEKLY PO 03/18/21 18:00 03/25/21 08:07 Ferrous Sulfate (Feosol) 325 mg BIDWMEALS PO 03/18/21 18:00 03/25/21 16:41 Ascorbic Acid (Vitamin C) 500 mg BID PO 03/18/21 21:00 03/25/21 19:59 Vitamin D (Vitamin D3) 50,000 unit WEEKLY PO 03/19/21 09:00 03/18/21 17:45 DC Ferrous Sulfate (Feosol) 325 mg BID PO 03/18/21 21:00 03/18/21 17:45 DC Ascorbic Acid (Vitamin C) 500 mg BID PO 03/18/21 21:00 03/18/21 17:45 DC Quetiapine Fumarate (SEROquel) 25 mg 0900,1300,1700 PO 03/19/21 13:00 03/21/21 16:43 DC 03/21/21 13:27 Quetiapine Fumarate (SEROquel) 37.5 mg 0900,1300,1700 PO 03/21/21 17:00 03/22/21 16:40 DC 03/22/21 12:37 Quetiapine Fumarate (SEROquel) 37.5 mg 1300,1700 PO 03/22/21 17:00 03/24/21 02:09 DC 03/23/21 16:47 Quetiapine Fumarate (SEROquel) 50 mg 0900 PO 03/23/21 09:00 03/25/21 08:07 Sertraline HCl (Zoloft) 100 mg DAILY PO 03/23/21 09:00 03/24/21 21:11 DC 03/24/21 08:30 Sertraline HCl (Zoloft) 50 mg DAILY PO 03/23/21 09:00 03/24/21 21:11 DC 03/24/21 08:30 Quetiapine Fumarate (SEROquel) 37.5 mg DAILY@1700 PO 03/24/21 17:00 03/25/21 16:40 Quetiapine Fumarate (SEROquel) 50 mg DAILY@1400 PO 03/24/21 14:00 03/25/21 13:27 Duloxetine HCl (Cymbalta) 30 mg DAILY PO 03/25/21 09:00 03/27/21 11:00 03/25/21 08:07 Duloxetine HCl (Cymbalta) 60 mg DAILY PO 03/28/21 09:00 Current Medications Medications (Trade) Dose Ordered Sig/Wing Route PRN Reason Start Time Stop Time Status Last Admin Dose Admin Duloxetine HCl (Cymbalta) 30 mg DAILY PO 03/25/21 09:00 03/27/21 11:00 03/25/21 08:07 I have reviewed the current psychotropics carefully including drug interactions. Risk benefit ratio favors no change other than as noted in my dictated progress note. Diagnosis: Problems: (1) Major depressive disorder, recurrent episode (2) Impulse control disorder, unspecified (3) Anxiety disorder, unspecified (4) Major neurocognitive disorder (5) Dementia, vascular, with depression (6) Dementia, vascular, with delusions KADI YEPEZ MD Mar 26, 2021 06:38
--- NOTE | 2021-03-26 06:50 | PDOC ---
Exam Note: Morgan Note: This note is a late entry for 03/24/2021 covers elements not covered in my initial note. Subjective: The patient was seen face to face in the evening of 03/24/2021 with Ira MONTERO, discussed and reviewed the chart. The patient slept 9 hours previous night. She has been tearful, isolative in her room, crying at times. She complains of weakness, wanting to be helped in her wheelchair. We will monitor this and reduce the Seroquel if sedation, tiredness persists. Review of Systems: Ambulation impaired. Tiredness persists. No CV, , pulmonary, eye, ENT system symptoms on review. Mental Status Exam: The patient is oriented to herself and situation. Insight and judgment, recent and remote memory, attention and concentration, fund of knowledge is poor consistent with her diagnoses. She is anxious and tearful. Laboratory Data: Reviewed. Impression: Major neurocognitive disorder Alzheimer, vascular with delusion, depression, behavioral disturbance. Anxiety disorder unspecified. Impulse control disorder unspecified. Major depressive disorder recurrent. Plan: Continue current psychotropics unchanged. Assessment: Vital Signs/I&O: Vital Signs Date Time Temp Pulse Resp B/P (MAP) Pulse Ox O2 Delivery O2 Flow Rate FiO2 03/26/21 06:00 97.6 83 18 124/78 (93) 97 03/22/21 15:28 Room Air I & O 03/25/21 03/25/21 03/26/21 14:59 22:59 06:59 Intake Total 960 ml 360 ml 120 ml Balance 960 ml 360 ml 120 ml Labs: Laboratory Tests Test 03/25/21 10:35 White Blood Count 7.8 x10^3/uL (4.0-11.0) Red Blood Count 5.15 x10^6/uL (3.50-5.40) Hemoglobin 10.4 g/dL (12.0-15.5) L Hematocrit 36.7 % (36.0-47.0) Mean Corpuscular Volume 71 fL (79-100) L Mean Corpuscular Hemoglobin 20 pg (25-35) L Mean Corpuscular Hemoglobin Concent 28 g/dL (31-37) L Red Cell Distribution Width 22.1 % (11.5-14.5) H Platelet Count 486 x10^3/uL (140-400) H Neutrophils (%) (Auto) 80 % (31-73) H Lymphocytes (%) (Auto) 9 % (24-48) L Monocytes (%) (Auto) 8 % (0-9) Eosinophils (%) (Auto) 2 % (0-3) Basophils (%) (Auto) 2 % (0-3) Neutrophils # (Auto) 6.2 x10^3uL (1.8-7.7) Lymphocytes # (Auto) 0.7 x10^3/uL (1.0-4.8) L Monocytes # (Auto) 0.6 x10^3/uL (0.0-1.1) Eosinophils # (Auto) 0.1 x10^3/uL (0.0-0.7) Basophils # (Auto) 0.1 x10^3/uL (0.0-0.2) Platelet Estimate Increased (ADEQUATE) Polychromasia Present Anisocytosis Slight Microcytosis Slight Sodium Level 142 mmol/L (136-145) Potassium Level 4.2 mmol/L (3.5-5.1) Chloride Level 106 mmol/L (98-107) Carbon Dioxide Level 29 mmol/L (21-32) Anion Gap 7 (6-14) Blood Urea Nitrogen 18 mg/dL (7-20) Creatinine 0.6 mg/dL (0.6-1.0) Estimated GFR (Cockcroft-Gault) 96.4 BUN/Creatinine Ratio 30 (6-20) H Glucose Level 220 mg/dL (70-99) H Calcium Level 8.9 mg/dL (8.5-10.1) Total Bilirubin 0.7 mg/dL (0.2-1.0) Aspartate Amino Transferase (AST) 26 U/L (15-37) Alanine Aminotransferase (ALT) 18 U/L (14-59) Alkaline Phosphatase 203 U/L (46-116) H Total Protein 7.1 g/dL (6.4-8.2) Albumin 2.9 g/dL (3.4-5.0) L Albumin/Globulin Ratio 0.7 (1.0-1.7) L Current Medications: Meds: Laboratory Tests Test 03/25/21 10:35 White Blood Count 7.8 x10^3/uL Red Blood Count 5.15 x10^6/uL Hemoglobin 10.4 g/dL Hematocrit 36.7 % Mean Corpuscular Volume 71 fL Mean Corpuscular Hemoglobin 20 pg Mean Corpuscular Hemoglobin Concent 28 g/dL Red Cell Distribution Width 22.1 % Platelet Count 486 x10^3/uL Neutrophils (%) (Auto) 80 % Lymphocytes (%) (Auto) 9 % Monocytes (%) (Auto) 8 % Eosinophils (%) (Auto) 2 % Basophils (%) (Auto) 2 % Neutrophils # (Auto) 6.2 x10^3uL Lymphocytes # (Auto) 0.7 x10^3/uL Monocytes # (Auto) 0.6 x10^3/uL Eosinophils # (Auto) 0.1 x10^3/uL Basophils # (Auto) 0.1 x10^3/uL Platelet Estimate Increased Polychromasia Present Anisocytosis Slight Microcytosis Slight Sodium Level 142 mmol/L Potassium Level 4.2 mmol/L Chloride Level 106 mmol/L Carbon Dioxide Level 29 mmol/L Anion Gap 7 Blood Urea Nitrogen 18 mg/dL Creatinine 0.6 mg/dL Estimated GFR (Cockcroft-Gault) 96.4 BUN/Creatinine Ratio 30 Glucose Level 220 mg/dL Calcium Level 8.9 mg/dL Total Bilirubin 0.7 mg/dL Aspartate Amino Transf (AST/SGOT) 26 U/L Alanine Aminotransferase (ALT/SGPT) 18 U/L Alkaline Phosphatase 203 U/L Total Protein 7.1 g/dL Albumin 2.9 g/dL Albumin/Globulin Ratio 0.7 Current Medications Medications (Trade) Dose Ordered Sig/Wing Route PRN Reason Start Time Stop Time Status Last Admin Dose Admin Albuterol Sulfate (Ventolin) 2.5 mg PRN QID PRN IH wheezing 03/17/21 19:45 Furosemide (Lasix) 60 mg DAILY PO 03/18/21 09:00 03/25/21 08:08 Pantoprazole Sodium (Protonix) 40 mg BIDBFRMEAL PO 03/18/21 07:30 03/25/21 16:40 Fenofibrate (Tricor) 145 mg DAILY PO 03/18/21 09:00 03/25/21 08:07 Potassium Chloride (Klor-Con) 30 meq DAILYWBKFT PO 03/18/21 08:00 03/25/21 08:00 Rivaroxaban (Xarelto) 20 mg DAILYWSUP PO 03/17/21 20:00 03/25/21 16:40 Lorazepam (Ativan) 1 mg PRN TID PRN PO ANXIETY / AGITATION 03/17/21 19:45 03/17/21 20:19 Quetiapine Fumarate (SEROquel) 50 mg DAILYWSUP PO 03/17/21 20:00 03/19/21 11:53 DC 03/18/21 17:15 Sertraline HCl (Zoloft) 200 mg DAILY PO 03/18/21 09:00 03/22/21 19:40 DC 03/22/21 08:42 Temazepam (Restoril) 15 mg PRN QHS PRN PO INSOMNIA 03/17/21 19:45 03/23/21 22:08 Trazodone HCl (Desyrel) 100 mg HS PO 03/17/21 21:00 03/25/21 19:59 Acetaminophen (Tylenol) 650 mg PRN Q6HRS PRN PO MILD PAIN / TEMP > 100.3'F 03/17/21 19:45 03/19/21 08:36 Multi-Ingredient Ointment (Analgesic [place]) 1 ravin PRN QID PRN TP MUSCLE PAIN 03/17/21 19:45 Al Hydroxide/Mg Hydroxide (Mylanta Plus Xs) 15 ml PRN AFTMEALHC PRN PO DYSPEPSIA 03/17/21 19:45 Magnesium Hydroxide (Milk Of Magnesia) 2,400 mg PRN QHS PRN PO CONSTIPATION 03/17/21 19:45 Mirtazapine (Remeron) 7.5 mg QHS PO 03/18/21 21:00 03/25/21 19:59 Olanzapine (ZyPREXA ZYDIS) 2.5 mg PRN Q2HRS PRN PO PSYCHOSIS 03/18/21 10:30 03/18/21 13:50 Vitamin D (Vitamin D3) 50,000 unit WEEKLY PO 03/18/21 18:00 03/25/21 08:07 Ferrous Sulfate (Feosol) 325 mg BIDWMEALS PO 03/18/21 18:00 03/25/21 16:41 Ascorbic Acid (Vitamin C) 500 mg BID PO 03/18/21 21:00 03/25/21 19:59 Vitamin D (Vitamin D3) 50,000 unit WEEKLY PO 03/19/21 09:00 8/15/21 17:45 DC Ferrous Sulfate (Feosol) 325 mg BID PO 03/18/21 21:00 03/18/21 17:45 DC Ascorbic Acid (Vitamin C) 500 mg BID PO 03/18/21 21:00 03/18/21 17:45 DC Quetiapine Fumarate (SEROquel) 25 mg 0900,1300,1700 PO 03/19/21 13:00 03/21/21 16:43 DC 03/21/21 13:27 Quetiapine Fumarate (SEROquel) 37.5 mg 0900,1300,1700 PO 03/21/21 17:00 03/22/21 16:40 DC 03/22/21 12:37 Quetiapine Fumarate (SEROquel) 37.5 mg 1300,1700 PO 03/22/21 17:00 03/24/21 02:09 DC 03/23/21 16:47 Quetiapine Fumarate (SEROquel) 50 mg 0900 PO 03/23/21 09:00 03/25/21 08:07 Sertraline HCl (Zoloft) 100 mg DAILY PO 03/23/21 09:00 03/24/21 21:11 DC 03/24/21 08:30 Sertraline HCl (Zoloft) 50 mg DAILY PO 03/23/21 09:00 03/24/21 21:11 DC 03/24/21 08:30 Quetiapine Fumarate (SEROquel) 37.5 mg DAILY@1700 PO 03/24/21 17:00 03/25/21 16:40 Quetiapine Fumarate (SEROquel) 50 mg DAILY@1400 PO 03/24/21 14:00 03/25/21 13:27 Duloxetine HCl (Cymbalta) 30 mg DAILY PO 03/25/21 09:00 03/27/21 11:00 03/25/21 08:07 Duloxetine HCl (Cymbalta) 60 mg DAILY PO 03/28/21 09:00 Current Medications Medications (Trade) Dose Ordered Sig/Wing Route PRN Reason Start Time Stop Time Status Last Admin Dose Admin Duloxetine HCl (Cymbalta) 30 mg DAILY PO 03/25/21 09:00 03/27/21 11:00 03/25/21 08:07 I have reviewed the current psychotropics carefully including drug interactions. Risk benefit ratio favors no change other than as noted in my dictated progress note. Diagnosis: Problems: (1) Major depressive disorder, recurrent episode (2) Impulse control disorder, unspecified (3) Anxiety disorder, unspecified (4) Major neurocognitive disorder (5) Dementia, vascular, with depression (6) Dementia, vascular, with delusions KAID YEPEZ MD Mar 26, 2021 06:50
--- NOTE | 2021-03-26 07:01 | PDOC ---
Exam Note: Morgan Note: This note is a late entry for 03/25/2021 covers elements not covered in my initial note. Subjective: The patient was seen face to face in the evening of 03/25/2021 with Ira MONTERO, discussed and reviewed the chart. The patient slept 8-3/4 hours previous night. I met with her in her room. She remains somewhat anxious but less so than before, less crying out for Paula. Review of Systems: Tiredness persists. No CV, , pulmonary, eye, ENT system symptoms on review. Mental Status Exam: The patient is oriented to herself. Insight and judgment, recent and remote memory, attention and concentration, fund of knowledge is poor consistent with her diagnoses. Laboratory Data: Reviewed. Impression: Major neurocognitive disorder Alzheimer, vascular with delusion, depression, behavioral disturbance. Anxiety disorder unspecified. Impulse control disorder unspecified. Major depressive disorder recurrent. Plan: Continue current psychotropics unchanged. Assessment: Vital Signs/I&O: Vital Signs Date Time Temp Pulse Resp B/P (MAP) Pulse Ox O2 Delivery O2 Flow Rate FiO2 03/26/21 06:00 97.6 83 18 124/78 (93) 97 03/22/21 15:28 Room Air I & O 03/25/21 03/25/21 03/26/21 15:00 23:00 07:00 Intake Total 960 ml 360 ml 120 ml Balance 960 ml 360 ml 120 ml Labs: Laboratory Tests Test 03/25/21 10:35 White Blood Count 7.8 x10^3/uL (4.0-11.0) Red Blood Count 5.15 x10^6/uL (3.50-5.40) Hemoglobin 10.4 g/dL (12.0-15.5) L Hematocrit 36.7 % (36.0-47.0) Mean Corpuscular Volume 71 fL (79-100) L Mean Corpuscular Hemoglobin 20 pg (25-35) L Mean Corpuscular Hemoglobin Concent 28 g/dL (31-37) L Red Cell Distribution Width 22.1 % (11.5-14.5) H Platelet Count 486 x10^3/uL (140-400) H Neutrophils (%) (Auto) 80 % (31-73) H Lymphocytes (%) (Auto) 9 % (24-48) L Monocytes (%) (Auto) 8 % (0-9) Eosinophils (%) (Auto) 2 % (0-3) Basophils (%) (Auto) 2 % (0-3) Neutrophils # (Auto) 6.2 x10^3uL (1.8-7.7) Lymphocytes # (Auto) 0.7 x10^3/uL (1.0-4.8) L Monocytes # (Auto) 0.6 x10^3/uL (0.0-1.1) Eosinophils # (Auto) 0.1 x10^3/uL (0.0-0.7) Basophils # (Auto) 0.1 x10^3/uL (0.0-0.2) Platelet Estimate Increased (ADEQUATE) Polychromasia Present Anisocytosis Slight Microcytosis Slight Sodium Level 142 mmol/L (136-145) Potassium Level 4.2 mmol/L (3.5-5.1) Chloride Level 106 mmol/L (98-107) Carbon Dioxide Level 29 mmol/L (21-32) Anion Gap 7 (6-14) Blood Urea Nitrogen 18 mg/dL (7-20) Creatinine 0.6 mg/dL (0.6-1.0) Estimated GFR (Cockcroft-Gault) 96.4 BUN/Creatinine Ratio 30 (6-20) H Glucose Level 220 mg/dL (70-99) H Calcium Level 8.9 mg/dL (8.5-10.1) Total Bilirubin 0.7 mg/dL (0.2-1.0) Aspartate Amino Transferase (AST) 26 U/L (15-37) Alanine Aminotransferase (ALT) 18 U/L (14-59) Alkaline Phosphatase 203 U/L (46-116) H Total Protein 7.1 g/dL (6.4-8.2) Albumin 2.9 g/dL (3.4-5.0) L Albumin/Globulin Ratio 0.7 (1.0-1.7) L Current Medications: Meds: Laboratory Tests Test 03/25/21 10:35 White Blood Count 7.8 x10^3/uL Red Blood Count 5.15 x10^6/uL Hemoglobin 10.4 g/dL Hematocrit 36.7 % Mean Corpuscular Volume 71 fL Mean Corpuscular Hemoglobin 20 pg Mean Corpuscular Hemoglobin Concent 28 g/dL Red Cell Distribution Width 22.1 % Platelet Count 486 x10^3/uL Neutrophils (%) (Auto) 80 % Lymphocytes (%) (Auto) 9 % Monocytes (%) (Auto) 8 % Eosinophils (%) (Auto) 2 % Basophils (%) (Auto) 2 % Neutrophils # (Auto) 6.2 x10^3uL Lymphocytes # (Auto) 0.7 x10^3/uL Monocytes # (Auto) 0.6 x10^3/uL Eosinophils # (Auto) 0.1 x10^3/uL Basophils # (Auto) 0.1 x10^3/uL Platelet Estimate Increased Polychromasia Present Anisocytosis Slight Microcytosis Slight Sodium Level 142 mmol/L Potassium Level 4.2 mmol/L Chloride Level 106 mmol/L Carbon Dioxide Level 29 mmol/L Anion Gap 7 Blood Urea Nitrogen 18 mg/dL Creatinine 0.6 mg/dL Estimated GFR (Cockcroft-Gault) 96.4 BUN/Creatinine Ratio 30 Glucose Level 220 mg/dL Calcium Level 8.9 mg/dL Total Bilirubin 0.7 mg/dL Aspartate Amino Transf (AST/SGOT) 26 U/L Alanine Aminotransferase (ALT/SGPT) 18 U/L Alkaline Phosphatase 203 U/L Total Protein 7.1 g/dL Albumin 2.9 g/dL Albumin/Globulin Ratio 0.7 Current Medications Medications (Trade) Dose Ordered Sig/Wing Route PRN Reason Start Time Stop Time Status Last Admin Dose Admin Albuterol Sulfate (Ventolin) 2.5 mg PRN QID PRN IH wheezing 03/17/21 19:45 Furosemide (Lasix) 60 mg DAILY PO 03/18/21 09:00 03/25/21 08:08 Pantoprazole Sodium (Protonix) 40 mg BIDBFRMEAL PO 03/18/21 07:30 03/25/21 16:40 Fenofibrate (Tricor) 145 mg DAILY PO 03/18/21 09:00 03/25/21 08:07 Potassium Chloride (Klor-Con) 30 meq DAILYWBKFT PO 03/18/21 08:00 03/25/21 08:00 Rivaroxaban (Xarelto) 20 mg DAILYWSUP PO 03/17/21 20:00 03/25/21 16:40 Lorazepam (Ativan) 1 mg PRN TID PRN PO ANXIETY / AGITATION 03/17/21 19:45 03/17/21 20:19 Quetiapine Fumarate (SEROquel) 50 mg DAILYWSUP PO 03/17/21 20:00 03/19/21 11:53 DC 03/18/21 17:15 Sertraline HCl (Zoloft) 200 mg DAILY PO 03/18/21 09:00 03/22/21 19:40 DC 03/22/21 08:42 Temazepam (Restoril) 15 mg PRN QHS PRN PO INSOMNIA 03/17/21 19:45 03/23/21 22:08 Trazodone HCl (Desyrel) 100 mg HS PO 03/17/21 21:00 03/25/21 19:59 Acetaminophen (Tylenol) 650 mg PRN Q6HRS PRN PO MILD PAIN / TEMP > 100.3'F 03/17/21 19:45 03/19/21 08:36 Multi-Ingredient Ointment (Analgesic [place]) 1 ravin PRN QID PRN TP MUSCLE PAIN 03/17/21 19:45 Al Hydroxide/Mg Hydroxide (Mylanta Plus Xs) 15 ml PRN AFTMEALHC PRN PO DYSPEPSIA 03/17/21 19:45 Magnesium Hydroxide (Milk Of Magnesia) 2,400 mg PRN QHS PRN PO CONSTIPATION 03/17/21 19:45 Mirtazapine (Remeron) 7.5 mg QHS PO 03/18/21 21:00 03/25/21 19:59 Olanzapine (ZyPREXA ZYDIS) 2.5 mg PRN Q2HRS PRN PO PSYCHOSIS 03/18/21 10:30 03/18/21 13:50 Vitamin D (Vitamin D3) 50,000 unit WEEKLY PO 03/18/21 18:00 03/25/21 08:07 Ferrous Sulfate (Feosol) 325 mg BIDWMEALS PO 03/18/21 18:00 03/25/21 16:41 Ascorbic Acid (Vitamin C) 500 mg BID PO 03/18/21 21:00 03/25/21 19:59 Vitamin D (Vitamin D3) 50,000 unit WEEKLY PO 03/19/21 09:00 03/18/21 17:45 DC Ferrous Sulfate (Feosol) 325 mg BID PO 03/18/21 21:00 03/18/21 17:45 DC Ascorbic Acid (Vitamin C) 500 mg BID PO 03/18/21 21:00 03/18/21 17:45 DC Quetiapine Fumarate (SEROquel) 25 mg 0900,1300,1700 PO 03/19/21 13:00 03/21/21 16:43 DC 03/21/21 13:27 Quetiapine Fumarate (SEROquel) 37.5 mg 0900,1300,1700 PO 03/21/21 17:00 03/22/21 16:40 DC 03/22/21 12:37 Quetiapine Fumarate (SEROquel) 37.5 mg 1300,1700 PO 03/22/21 17:00 03/24/21 02:09 DC 03/23/21 16:47 Quetiapine Fumarate (SEROquel) 50 mg 0900 PO 03/23/21 09:00 03/25/21 08:07 Sertraline HCl (Zoloft) 100 mg DAILY PO 03/23/21 09:00 03/24/21 21:11 DC 03/24/21 08:30 Sertraline HCl (Zoloft) 50 mg DAILY PO 03/23/21 09:00 03/24/21 21:11 DC 03/24/21 08:30 Quetiapine Fumarate (SEROquel) 37.5 mg DAILY@1700 PO 03/24/21 17:00 03/25/21 16:40 Quetiapine Fumarate (SEROquel) 50 mg DAILY@1400 PO 03/24/21 14:00 03/25/21 13:27 Duloxetine HCl (Cymbalta) 30 mg DAILY PO 03/25/21 09:00 03/27/21 11:00 03/25/21 08:07 Duloxetine HCl (Cymbalta) 60 mg DAILY PO 03/28/21 09:00 Current Medications Medications (Trade) Dose Ordered Sig/Wing Route PRN Reason Start Time Stop Time Status Last Admin Dose Admin Duloxetine HCl (Cymbalta) 30 mg DAILY PO 03/25/21 09:00 03/27/21 11:00 03/25/21 08:07 I have reviewed the current psychotropics carefully including drug interactions. Risk benefit ratio favors no change other than as noted in my dictated progress note. Diagnosis: Problems: (1) Major depressive disorder, recurrent episode (2) Impulse control disorder, unspecified (3) Anxiety disorder, unspecified (4) Major neurocognitive disorder (5) Dementia, vascular, with depression (6) Dementia, vascular, with delusions KADI YEPEZ MD Mar 26, 2021 07:01
[2021-03-26] MEDS: POTASSIUM CHLORIDE 10 MEQ TABLET.ER. PO SCH (08:00)
[2021-03-26] MEDS: PANTOPRAZOLE 40 MG TABLET. PO SCH ×2 (08:09→17:11)
[2021-03-26] MEDS: FERROUS SULFATE 325 MG TABLET. PO SCH ×2 (08:10→17:11)
[2021-03-26] MEDS: ASCORBIC ACID 500 MG TABLET PO SCH ×2 (08:10→20:09)
[2021-03-26] MEDS: QUEtiapine 50 MG TABLET. PO SCH (08:10)
[2021-03-26] MEDS: FUROSEMIDE 20 MG TABLET PO SCH (08:10)
[2021-03-26] MEDS: FENOFIBRATE NANOCRYSTALLIZED 145 MG TABLET PO SCH (08:10)
[2021-03-26] MEDS: DULoxetine HCL 30 MG CAPSULE.DR PO SCH (08:10)
[2021-03-26] MEDS ORDERED: traZODone 100 MG TABLET. PO PRN (12:30)
[2021-03-26] MEDS ORDERED: traZODone 100 MG TABLET. PO ONE (12:45)
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
[2021-03-26 15:12] VITALS: BP 107/61
--- NOTE | 2021-03-26 15:17 | TX PLAN ---
Interdisciplinary Tx Plan Admission Information Mar 17, 2021 at 17:51 Legal Status (on Admission): Voluntary, DPOA DPOA/Guardian Name: Paula San Contact Other Contact Name: Christa- Other Contact Phone: [phone] Verified Code Status: DNR Allergies: Coded Allergies: Penicillins (Verified Allergy, Unknown, Unknown, 03/17/21) erythromycin base (Verified Allergy, Unknown, Unknown, 03/17/21) Estimated Length of Stay: 14 Diagnoses Primary Diagnosis: MDD; dementia Reasons for Admission: Delusions, Sig. Change Sleep, Anxiety/Panic, Suicidal ideation, Confusion/Disoriented Problem in Patient's Words: As above Additional Admission Comments: Per intake record, insomnia, anxious, screaming out, believes she is going to be left in a cornfield, frightened/scared, expresses she wants to , delusional and asks to be gotten out of the corn field, disruptive to the correction community in which she is living. Problems Active Problems: Delusional insomnia anxious screaming out frightened/scared that she's going to be left in a corn field expresses she wats to disruptive to the correction community in which she lives Inactive Problems: Intakes are averaging 50% Pt Strengths/Limitations Ability for [place]: Fair Cognitive Functioning/Ability: Fair Communication Skills/Ability: Fair Financial Resources: Fair Insight/Judgement: Fair Intellectual Ability: Fair Physical Health: Fair Social Skills: Fair Stability in Family: Good Verbal Skills: Fair Discharge Criteria Discharge Criteria: Able meet basic life need, Able to meet health needs, Adequate arrangements @DC, Adequate self-care, Improved mood/thought Preliminary Discharge Plan Preliminary DC Plan: Home Other Arrangements: Independent apartment at [facility] Special Precautions Special Precautions: Suicide Risk Fall Risk: High Initial D/C Plan Independent [facility] apartment vs. higher level of care Identified Discharge Needs: Return to independent apartment at [facility] vs. placement for increased support with care needs Currently Utilized Resources Currently Utilized Resources/P: PCP Out patient psychciatry Identified Problems/Hx/Goals Objectives/Short-Term Goals Short Term Goals: Control abnormal behavior, Dec. Anxiety/Panic, Dec. Outb ursts, Dec. Symp. Depression, Medication Stabilization, Monitor Med Effects, Promote Coping Skill Short Term Goals in Patient's: Per Danica, "I want to go home." Interventions/Frequency Staff Interventions/Frequency&: Nursing to provide routine safety checks, medication administration, and adl support. Psychiatry to see three times weekly. SW to see twice weekly. Recreational activites as Danica desires. PT/OT eval and treat as indicated. 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 Social: Seun has enjoyed bowling, faith involvment, cooking, and gardening. Education: Danica graduated high school. Community Follow-up PCP Out patient psychiatry Community Provider/Family Inpu: Team meeting was held on 03/19/21, manager data warehousing of treamtent plan was completed on 03/20/21. Treatment Plan Explained Patient/Extension Specialist had this treatment plan explained to him/her as indicated by the signature below and has been given the opportunity to ask questions and make suggestions: Date: Patient/Extension Specialist Signature: Status Update Update WEEKLY NOTE/UPDATE: Danica is averaging 100% of meal intakes and seven hours of sleep at night. Danica tends to be tearful and cries out for her daughter. She has been initiated on Cymbalta for depression. Danica needs encouragement to ambulate and be involved in her self cares. Physical therapy is currently treating. She scored 14/30 on MMSE indicating moderate cognitive impairment. She needs encouragement at group activities and tends to be easily distracted by desire to go home. Ativan and seroquel will be discontinued at this time to see if Danica's walking improves. Paula, daughter, participated in team meeting via phone. While goal remains for Danica to return to her apartment at [facility] discussion was held about the possible need for an increased care support, possible placement in longterm care. SW encouraged Paula to identify longterm care facilities should Danica need a referral completed. MICHAEL LUCIA Mar 26, 2021 15:17
--- NOTE | 2021-03-26 16:24 | NUR ---
Nursing note: Patient in [facility] for morning medications & assessment, medications taken whole, some cheeking of medications noted. She is A/O to self, whimpering all day, calling out that she wants to go home, see her kids, & calling out for daughter. She is unable to state date. She has been using her walker through the day with increased encouragement, can be unsteady at times. Denies pain/discomfort at this time. Patient is currently sitting in [facility]. This nurse requested staff to delay swallow study r/t medication changes.Will continue to monitor.
[2021-03-26] MEDS: RIVAROXABAN 10 MG TABLET. PO SCH (17:11)
[2021-03-26] MEDS: MIRTAZAPINE 7.5 MG TABLET. PO SCH (20:09)
[2021-03-26] MEDS: traZODone 50 MG TABLET. PO PRN (22:33)
--- NOTE | 2021-03-26 22:43 | NUR ---
Pt located in her room this evening. Tearful and depressed. Compliant with whole medications. Later in the evening, pt began yelling out from her bed. When asked why she was yelling, pt stated she wasn't yelling. PRN Trazodone administered.
--- NOTE | 2021-03-26 23:05 | PDOC ---
Exam Note: Morgan Note: Please also refer to the separate dictated note~for this date of service dictated separately.~Patient seen individually. Discussed the patient with Nursing staff reviewed the chart.~Reviewed interim history and current functioning. Reviewed vital signs,~Labs/ Radiology~and current medications noted below. Continue current treatment with the changes noted in the dictated addendum note Assessment: Vital Signs/I&O: Vital Signs Date Time Temp Pulse Resp B/P (MAP) Pulse Ox O2 Delivery O2 Flow Rate FiO2 03/26/21 15:12 98.3 73 18 107/61 (76) 98 03/22/21 15:28 Room Air I & O 03/25/21 03/25/21 03/26/21 15:00 23:00 07:00 Intake Total 960 ml 360 ml 120 ml Balance 960 ml 360 ml 120 ml Current Medications: Meds: Current Medications Medications (Trade) Dose Ordered Sig/Wing Route PRN Reason Start Time Stop Time Status Last Admin Dose Admin Albuterol Sulfate (Ventolin) 2.5 mg PRN QID PRN IH wheezing 03/17/21 19:45 Furosemide (Lasix) 60 mg DAILY PO 03/18/21 09:00 03/26/21 08:10 Pantoprazole Sodium (Protonix) 40 mg BIDBFRMEAL PO 03/18/21 07:30 03/26/21 17:11 Fenofibrate (Tricor) 145 mg DAILY PO 03/18/21 09:00 03/26/21 08:10 Potassium Chloride (Klor-Con) 30 meq DAILYWBKFT PO 03/18/21 08:00 03/26/21 08:00 Rivaroxaban (Xarelto) 20 mg DAILYWSUP PO 03/17/21 20:00 03/26/21 17:11 Lorazepam (Ativan) 1 mg PRN TID PRN PO ANXIETY / AGITATION 03/17/21 19:45 03/26/21 12:36 DC 03/17/21 20:19 Quetiapine Fumarate (SEROquel) 50 mg DAILYWSUP PO 03/17/21 20:00 03/19/21 11:53 DC 03/18/21 17:15 Sertraline HCl (Zoloft) 200 mg DAILY PO 03/18/21 09:00 03/22/21 19:40 DC 03/22/21 08:42 Temazepam (Restoril) 15 mg PRN QHS PRN PO INSOMNIA 03/17/21 19:45 03/23/21 22:08 Trazodone HCl (Desyrel) 100 mg HS PO 03/17/21 21:00 03/26/21 12:36 DC 03/25/21 19:59 Acetaminophen (Tylenol) 650 mg PRN Q6HRS PRN PO MILD PAIN / TEMP > 100.3'F 03/17/21 19:45 03/19/21 08:36 Multi-Ingredient Ointment (Analgesic [place]) 1 ravin PRN QID PRN TP MUSCLE PAIN 03/17/21 19:45 Al Hydroxide/Mg Hydroxide (Mylanta Plus Xs) 15 ml PRN AFTMEALHC PRN PO DYSPEPSIA 03/17/21 19:45 Magnesium Hydroxide (Milk Of Magnesia) 2,400 mg PRN QHS PRN PO CONSTIPATION 03/17/21 19:45 Mirtazapine (Remeron) 7.5 mg QHS PO 03/18/21 21:00 03/26/21 20:09 Olanzapine (ZyPREXA ZYDIS) 2.5 mg PRN Q2HRS PRN PO PSYCHOSIS 03/18/21 10:30 03/18/21 13:50 Vitamin D (Vitamin D3) 50,000 unit WEEKLY PO 03/18/21 18:00 03/25/21 08:07 Ferrous Sulfate (Feosol) 325 mg BIDWMEALS PO 03/18/21 18:00 03/26/21 17:11 Ascorbic Acid (Vitamin C) 500 mg BID PO 03/18/21 21:00 03/26/21 20:09 Vitamin D (Vitamin D3) 50,000 unit WEEKLY PO 03/19/21 09:00 03/18/21 17:45 DC Ferrous Sulfate (Feosol) 325 mg BID PO 03/18/21 21:00 03/18/21 17:45 DC Ascorbic Acid (Vitamin C) 500 mg BID PO 03/18/21 21:00 03/18/21 17:45 DC Quetiapine Fumarate (SEROquel) 25 mg 0900,1300,1700 PO 03/19/21 13:00 03/21/21 16:43 DC 03/21/21 13:27 Quetiapine Fumarate (SEROquel) 37.5 mg 0900,1300,1700 PO 03/21/21 17:00 03/22/21 16:40 DC 03/22/21 12:37 Quetiapine Fumarate (SEROquel) 37.5 mg 1300,1700 PO 03/22/21 17:00 03/24/21 02:09 DC 03/23/21 16:47 Quetiapine Fumarate (SEROquel) 50 mg 0900 PO 03/23/21 09:00 03/26/21 12:36 DC 03/26/21 08:10 Sertraline HCl (Zoloft) 100 mg DAILY PO 03/23/21 09:00 03/24/21 21:11 DC 03/24/21 08:30 Sertraline HCl (Zoloft) 50 mg DAILY PO 03/23/21 09:00 03/24/21 21:11 DC 03/24/21 08:30 Quetiapine Fumarate (SEROquel) 37.5 mg DAILY@1700 PO 03/24/21 17:00 03/26/21 12:36 DC 03/25/21 16:40 Quetiapine Fumarate (SEROquel) 50 mg DAILY@1400 PO 03/24/21 14:00 03/26/21 12:36 DC 03/25/21 13:27 Duloxetine HCl (Cymbalta) 30 mg DAILY PO 03/25/21 09:00 03/27/21 11:00 03/26/21 08:10 Duloxetine HCl (Cymbalta) 60 mg DAILY PO 03/28/21 09:00 Trazodone HCl (Desyrel) 100 mg PRN QHS PRN PO INSOMNIA 03/26/21 12:30 03/26/21 12:49 DC Trazodone HCl (Desyrel) 50 mg 1X ONCE PO 03/26/21 12:45 03/26/21 12:44 DC Trazodone HCl (Desyrel) 50 mg PRN QHS PRN PO INSOMNIA 03/26/21 13:15 03/26/21 22:33 Current Medications Medications (Trade) Dose Ordered Sig/Wing Route PRN Reason Start Time Stop Time Status Last Admin Dose Admin Trazodone HCl (Desyrel) 50 mg PRN QHS PRN PO INSOMNIA 03/26/21 13:15 03/26/21 22:33 I have reviewed the current psychotropics carefully including drug interactions. Risk benefit ratio favors no change other than as noted in my dictated progress note. Diagnosis: Problems: (1) Major depressive disorder, recurrent episode (2) Impulse control disorder, unspecified (3) Anxiety disorder, unspecified (4) Major neurocognitive disorder (5) Dementia, vascular, with depression (6) Dementia, vascular, with delusions KADI YEPEZ MD Mar 26, 2021 23:05
[2021-03-27 06:21] VITALS: BP 134/69
[2021-03-27] MEDS: POTASSIUM CHLORIDE 10 MEQ TABLET.ER. PO SCH (08:00)
[2021-03-27] MEDS: FUROSEMIDE 20 MG TABLET PO SCH (08:50)
[2021-03-27] MEDS: DULoxetine HCL 30 MG CAPSULE.DR PO SCH (08:51)
[2021-03-27] MEDS: FERROUS SULFATE 325 MG TABLET. PO SCH ×2 (08:51→16:29)
[2021-03-27] MEDS: PANTOPRAZOLE 40 MG TABLET. PO SCH ×2 (08:51→16:29)
[2021-03-27] MEDS: FENOFIBRATE NANOCRYSTALLIZED 145 MG TABLET PO SCH (08:51)
[2021-03-27] MEDS: ASCORBIC ACID 500 MG TABLET PO SCH ×2 (08:52→20:05)
--- NOTE | 2021-03-27 09:09 | PDOC ---
Exam Note: Morgan Note: This note is a late entry for 03/26/2021 covers elements not covered in my initial note. Subjective: The patient was reviewed at treatment team meeting individually in the morning on 03/26/2021 with Luzma Toro, Jessica Cheng (sr. social media & mobile manager), Mary, activity therapy and Cecelia MONTERO, discussed and reviewed the chart. The patient slept 6 hours previous night. Patients daughter Paula was part of the treatment team meeting as well and I also met with the patient in the evening and discussed with Meseret MONTERO. Daughter expressed a lot of concern about the patients swallowing problems for which she is getting a swallow study. She has impaired ambulation, in wheelchair and we discussed this part of being disease process perhaps Seroquel is worsening and we will stop the Seroquel and reassess with physical therapy staff. We will also reduce the h.s. trazodone from 100 mg h.s. to 50 mg h.s. p.r.n., may repeat x1 for insomnia and discontinue the Ativan p.r.n. Review of Systems: No CV, , pulmonary, eye, ENT system symptoms on review. Impaired ambulation, in wheelchair. Mental Status Exam: The patient is oriented to herself. I met with her individually in her room. She continues to be anxious, tearful, crying out calling for Paula. Insight and judgment, recent and remote memory, attention and concentration, fund of knowledge is poor consistent with her diagnoses. Laboratory Data: Reviewed. Impression: Major neurocognitive disorder Alzheimer, vascular with delusion, depression, behavioral disturbance. Anxiety disorder unspecified. Impulse control disorder unspecified. Major depressive disorder recurrent. Plan: No change from initial note other than what is noted above. We will adjust psychotropics further as clinically indicated. Assessment: Vital Signs/I&O: Vital Signs Date Time Temp Pulse Resp B/P (MAP) Pulse Ox O2 Delivery O2 Flow Rate FiO2 03/27/21 06:21 97.5 78 16 134/69 (90) 93 03/22/21 15:28 Room Air I & O 03/26/21 03/26/21 03/27/21 14:59 22:59 06:59 Intake Total 720 ml 260 ml Balance 720 ml 260 ml Current Medications: Meds: Current Medications Medications (Trade) Dose Ordered Sig/Wing Route PRN Reason Start Time Stop Time Status Last Admin Dose Admin Albuterol Sulfate (Ventolin) 2.5 mg PRN QID PRN IH wheezing 03/17/21 19:45 Furosemide (Lasix) 60 mg DAILY PO 03/18/21 09:00 03/27/21 08:50 Pantoprazole Sodium (Protonix) 40 mg BIDBFRMEAL PO 03/18/21 07:30 03/27/21 08:51 Fenofibrate (Tricor) 145 mg DAILY PO 03/18/21 09:00 03/27/21 08:51 Potassium Chloride (Klor-Con) 30 meq DAILYWBKFT PO 03/18/21 08:00 03/27/21 08:00 Rivaroxaban (Xarelto) 20 mg DAILYWSUP PO 03/17/21 20:00 03/26/21 17:11 Lorazepam (Ativan) 1 mg PRN TID PRN PO ANXIETY / AGITATION 03/17/21 19:45 03/26/21 12:36 DC 03/17/21 20:19 Quetiapine Fumarate (SEROquel) 50 mg DAILYWSUP PO 03/17/21 20:00 03/19/21 11:53 DC 03/18/21 17:15 Sertraline HCl (Zoloft) 200 mg DAILY PO 03/18/21 09:00 03/22/21 19:40 DC 03/22/21 08:42 Temazepam (Restoril) 15 mg PRN QHS PRN PO INSOMNIA 03/17/21 19:45 03/23/21 22:08 Trazodone HCl (Desyrel) 100 mg HS PO 03/17/21 21:00 03/26/21 12:36 DC 03/25/21 19:59 Acetaminophen (Tylenol) 650 mg PRN Q6HRS PRN PO MILD PAIN / TEMP > 100.3'F 03/17/21 19:45 03/19/21 08:36 Multi-Ingredient Ointment (Analgesic [place]) 1 ravin PRN QID PRN TP MUSCLE PAIN 03/17/21 19:45 Al Hydroxide/Mg Hydroxide (Mylanta Plus Xs) 15 ml PRN AFTMEALHC PRN PO DYSPEPSIA 03/17/21 19:45 Magnesium Hydroxide (Milk Of Magnesia) 2,400 mg PRN QHS PRN PO CONSTIPATION 03/17/21 19:45 Mirtazapine (Remeron) 7.5 mg QHS PO 03/18/21 21:00 03/26/21 20:09 Olanzapine (ZyPREXA ZYDIS) 2.5 mg PRN Q2HRS PRN PO PSYCHOSIS 03/18/21 10:30 03/18/21 13:50 Vitamin D (Vitamin D3) 50,000 unit WEEKLY PO 03/18/21 18:00 03/25/21 08:07 Ferrous Sulfate (Feosol) 325 mg BIDWMEALS PO 03/18/21 18:00 03/27/21 08:51 Ascorbic Acid (Vitamin C) 500 mg BID PO 03/18/21 21:00 03/27/21 08:52 Vitamin D (Vitamin D3) 50,000 unit WEEKLY PO 03/19/21 09:00 03/18/21 17:45 DC Ferrous Sulfate (Feosol) 325 mg BID PO 03/18/21 21:00 03/18/21 17:45 DC Ascorbic Acid (Vitamin C) 500 mg BID PO 03/18/21 21:00 03/18/21 17:45 DC Quetiapine Fumarate (SEROquel) 25 mg 0900,1300,1700 PO 03/19/21 13:00 03/21/21 16:43 DC 03/21/21 13:27 Quetiapine Fumarate (SEROquel) 37.5 mg 0900,1300,1700 PO 03/21/21 17:00 03/22/21 16:40 DC 03/22/21 12:37 Quetiapine Fumarate (SEROquel) 37.5 mg 1300,1700 PO 03/22/21 17:00 03/24/21 02:09 DC 03/23/21 16:47 Quetiapine Fumarate (SEROquel) 50 mg 0900 PO 03/23/21 09:00 03/26/21 12:36 DC 03/26/21 08:10 Sertraline HCl (Zoloft) 100 mg DAILY PO 03/23/21 09:00 03/24/21 21:11 DC 03/24/21 08:30 Sertraline HCl (Zoloft) 50 mg DAILY PO 03/23/21 09:00 03/24/21 21:11 DC 03/24/21 08:30 Quetiapine Fumarate (SEROquel) 37.5 mg DAILY@1700 PO 03/24/21 17:00 03/26/21 12:36 DC 03/25/21 16:40 Quetiapine Fumarate (SEROquel) 50 mg DAILY@1400 PO 03/24/21 14:00 03/26/21 12:36 DC 03/25/21 13:27 Duloxetine HCl (Cymbalta) 30 mg DAILY PO 03/25/21 09:00 03/27/21 11:00 03/27/21 08:51 Duloxetine HCl (Cymbalta) 60 mg DAILY PO 03/28/21 09:00 Trazodone HCl (Desyrel) 100 mg PRN QHS PRN PO INSOMNIA 03/26/21 12:30 03/26/21 12:49 DC Trazodone HCl (Desyrel) 50 mg 1X ONCE PO 03/26/21 12:45 03/26/21 12:44 DC Trazodone HCl (Desyrel) 50 mg PRN QHS PRN PO INSOMNIA 03/26/21 13:15 03/26/21 22:33 Current Medications Medications (Trade) Dose Ordered Sig/Wing Route PRN Reason Start Time Stop Time Status Last Admin Dose Admin Trazodone HCl (Desyrel) 50 mg PRN QHS PRN PO INSOMNIA 03/26/21 13:15 03/26/21 22:33 I have reviewed the current psychotropics carefully including drug interactions. Risk benefit ratio favors no change other than as noted in my dictated progress note. Diagnosis: Problems: (1) Major depressive disorder, recurrent episode (2) Impulse control disorder, unspecified (3) Anxiety disorder, unspecified (4) Major neurocognitive disorder (5) Dementia, vascular, with depression (6) Dementia, vascular, with delusions KADI YEPEZ MD Mar 27, 2021 09:09
--- NOTE | 2021-03-27 09:32 | NUR ---
RN DAY SHIFT NOTE: PT PRESENTS WITH A DEPRESSED MOOD/AFFECT. PT IS NOTED TO SIT QUIETLY ON THE UNIT TODAY. PT IS ENGAGEABLE WHEN APPROACHED BY STAFF. PT WAS MEDICATION COMPLIANT. PT TENDS TO KEEP TO HERSELF. PT'S VITALS REMAIN WNL. PT FOLLOWS RULES/ROUTINES ON THE UNIT. PT TAKES PILLS WHOLE, WITH INCREASED EFFORT AND TIME TO BE ABLE TO SWALLOW THEM. WILL CONTINUE TO MONITOR.
--- NOTE | 2021-03-27 15:52 | NUR ---
RN DAY SHIFT NOTE: PT WAS MOVED TO THE EAST SIDE OF THE UNIT. PT IS NOTED TO HAVE BECOME MORE ACTIVE PHYSICALLY AND SELF-INITIATED WALKING WITH PT'S WALKER UP AND DOWN THE UNIT. PT WAS FOUND TO BE SCRATCHING ON LEFT WRIST WITH HER OWN FINGERNAILS, PT HAD A LITTLE BIT OF BLOOD FROM THE SCRATCHING. PT'S LEFT WRIST WAS ADDRESSED BY NURSING STAFF, CLEANED AND A BAND-AID WAS PLACED ON THE SCRATCH. PT IS NOTED TO HAVE BEGUN CALLING OUT AGAIN FOR HER FAMILY MEMBER AFTER BEING SWITCHED OVER TO THE EAST SIDE OF THE UNIT. WILL CONTINUE TO MONITOR
[2021-03-27 15:53] VITALS: BP 111/69
--- NOTE | 2021-03-27 16:09 | NUR ---
DEMETRICE provided update to Christa nurse at [facility]. Observed Danica ambulating about the unit with her walker which is an improvement as nursing had reported she had taken to a wheelchair and was needing encouragement to ambulate.
[2021-03-27] MEDS: RIVAROXABAN 10 MG TABLET. PO SCH (16:29)
[2021-03-27] MEDS: MIRTAZAPINE 7.5 MG TABLET. PO SCH (20:05)
--- NOTE | 2021-03-27 22:45 | NUR ---
This evening pt sat in chair in hallway and was frequently calling out for Paula. She called Paula on the phone and was tearful throughout the conversation. She took HS meds whole without difficulty and has been cooperative with cares. Since going to bed she has been sleeping.
--- NOTE | 2021-03-27 22:47 | PDOC ---
Exam Note: Morgan Note: Please also refer to the separate dictated note~for this date of service dictated separately.~Patient seen individually. Discussed the patient with Nursing staff reviewed the chart.~Reviewed interim history and current functioning. Reviewed vital signs,~Labs/ Radiology~and current medications noted below. Continue current treatment with the changes noted in the dictated addendum note Assessment: Vital Signs/I&O: Vital Signs Date Time Temp Pulse Resp B/P (MAP) Pulse Ox O2 Delivery O2 Flow Rate FiO2 03/27/21 15:53 97.8 93 16 111/69 (83) 97 Room Air I & O 03/26/21 03/26/21 03/27/21 14:00 22:00 06:00 Intake Total 720 ml 260 ml Balance 720 ml 260 ml Current Medications: Meds: Current Medications Medications (Trade) Dose Ordered Sig/Wing Route PRN Reason Start Time Stop Time Status Last Admin Dose Admin Albuterol Sulfate (Ventolin) 2.5 mg PRN QID PRN IH wheezing 03/17/21 19:45 Furosemide (Lasix) 60 mg DAILY PO 03/18/21 09:00 03/27/21 08:50 Pantoprazole Sodium (Protonix) 40 mg BIDBFRMEAL PO 03/18/21 07:30 03/27/21 16:29 Fenofibrate (Tricor) 145 mg DAILY PO 03/18/21 09:00 03/27/21 08:51 Potassium Chloride (Klor-Con) 30 meq DAILYWBKFT PO 03/18/21 08:00 03/27/21 08:00 Rivaroxaban (Xarelto) 20 mg DAILYWSUP PO 03/17/21 20:00 03/27/21 16:29 Lorazepam (Ativan) 1 mg PRN TID PRN PO ANXIETY / AGITATION 03/17/21 19:45 03/26/21 12:36 DC 03/17/21 20:19 Quetiapine Fumarate (SEROquel) 50 mg DAILYWSUP PO 03/17/21 20:00 03/19/21 11:53 DC 03/18/21 17:15 Sertraline HCl (Zoloft) 200 mg DAILY PO 03/18/21 09:00 03/22/21 19:40 DC 03/22/21 08:42 Temazepam (Restoril) 15 mg PRN QHS PRN PO INSOMNIA 03/17/21 19:45 03/23/21 22:08 Trazodone HCl (Desyrel) 100 mg HS PO 03/17/21 21:00 03/26/21 12:36 DC 03/25/21 19:59 Acetaminophen (Tylenol) 650 mg PRN Q6HRS PRN PO MILD PAIN / TEMP > 100.3'F 03/17/21 19:45 03/19/21 08:36 Multi-Ingredient Ointment (Analgesic [place]) 1 ravin PRN QID PRN TP MUSCLE PAIN 03/17/21 19:45 Al Hydroxide/Mg Hydroxide (Mylanta Plus Xs) 15 ml PRN AFTMEALHC PRN PO DYSPEPSIA 03/17/21 19:45 Magnesium Hydroxide (Milk Of Magnesia) 2,400 mg PRN QHS PRN PO CONSTIPATION 03/17/21 19:45 Mirtazapine (Remeron) 7.5 mg QHS PO 03/18/21 21:00 03/27/21 20:05 Olanzapine (ZyPREXA ZYDIS) 2.5 mg PRN Q2HRS PRN PO PSYCHOSIS 03/18/21 10:30 03/18/21 13:50 Vitamin D (Vitamin D3) 50,000 unit WEEKLY PO 03/18/21 18:00 03/25/21 08:07 Ferrous Sulfate (Feosol) 325 mg BIDWMEALS PO 03/18/21 18:00 03/27/21 16:29 Ascorbic Acid (Vitamin C) 500 mg BID PO 03/18/21 21:00 03/27/21 20:05 Vitamin D (Vitamin D3) 50,000 unit WEEKLY PO 03/19/21 09:00 03/18/21 17:45 DC Ferrous Sulfate (Feosol) 325 mg BID PO 03/18/21 21:00 03/18/21 17:45 DC Ascorbic Acid (Vitamin C) 500 mg BID PO 03/18/21 21:00 03/18/21 17:45 DC Quetiapine Fumarate (SEROquel) 25 mg 0900,1300,1700 PO 03/19/21 13:00 03/21/21 16:43 DC 03/21/21 13:27 Quetiapine Fumarate (SEROquel) 37.5 mg 0900,1300,1700 PO 03/21/21 17:00 03/22/21 16:40 DC 03/22/21 12:37 Quetiapine Fumarate (SEROquel) 37.5 mg 1300,1700 PO 03/22/21 17:00 03/24/21 02:09 DC 03/23/21 16:47 Quetiapine Fumarate (SEROquel) 50 mg 0900 PO 03/23/21 09:00 03/26/21 12:36 DC 03/26/21 08:10 Sertraline HCl (Zoloft) 100 mg DAILY PO 03/23/21 09:00 03/24/21 21:11 DC 03/24/21 08:30 Sertraline HCl (Zoloft) 50 mg DAILY PO 03/23/21 09:00 03/24/21 21:11 DC 03/24/21 08:30 Quetiapine Fumarate (SEROquel) 37.5 mg DAILY@1700 PO 03/24/21 17:00 03/26/21 12:36 DC 03/25/21 16:40 Quetiapine Fumarate (SEROquel) 50 mg DAILY@1400 PO 03/24/21 14:00 03/26/21 12:36 DC 03/25/21 13:27 Duloxetine HCl (Cymbalta) 30 mg DAILY PO 03/25/21 09:00 03/27/21 11:00 DC 03/27/21 08:51 Duloxetine HCl (Cymbalta) 60 mg DAILY PO 03/28/21 09:00 Trazodone HCl (Desyrel) 100 mg PRN QHS PRN PO INSOMNIA 03/26/21 12:30 03/26/21 12:49 DC Trazodone HCl (Desyrel) 50 mg 1X ONCE PO 03/26/21 12:45 03/26/21 12:44 DC Trazodone HCl (Desyrel) 50 mg PRN QHS PRN PO INSOMNIA 03/26/21 13:15 03/26/21 22:33 Aripiprazole (Abilify) 2 mg DAILY PO 03/28/21 09:00 I have reviewed the current psychotropics carefully including drug interactions. Risk benefit ratio favors no change other than as noted in my dictated progress note. Diagnosis: Problems: (1) Major depressive disorder, recurrent episode (2) Impulse control disorder, unspecified (3) Anxiety disorder, unspecified (4) Major neurocognitive disorder (5) Dementia, vascular, with depression (6) Dementia, vascular, with delusions KADI YEPEZ MD Mar 27, 2021 22:47
[2021-03-28 06:39] VITALS: BP 133/80
[2021-03-28] MEDS: ARIPiprazole 2 MG TABLET PO SCH (08:06)
[2021-03-28] MEDS: FERROUS SULFATE 325 MG TABLET. PO SCH ×2 (08:07→17:19)
[2021-03-28] MEDS: POTASSIUM CHLORIDE 10 MEQ TABLET.ER. PO SCH (08:07)
[2021-03-28] MEDS: ASCORBIC ACID 500 MG TABLET PO SCH ×2 (08:07→21:21)
[2021-03-28] MEDS: DULoxetine HCL 60 MG CAPSULE.DR PO SCH (08:07)
[2021-03-28] MEDS: PANTOPRAZOLE 40 MG TABLET. PO SCH ×2 (08:07→17:19)
[2021-03-28] MEDS: FENOFIBRATE NANOCRYSTALLIZED 145 MG TABLET PO SCH (08:07)
[2021-03-28] MEDS: FUROSEMIDE 20 MG TABLET PO SCH (08:08)
--- NOTE | 2021-03-28 10:30 | NUR ---
Patient has been repeatedly calling out 'Paula please take me home' and crying since breakfast. She is inconsolable and not responding to verbal redirection. PRN medication provided per eMAR. Will continue to monitor.
[2021-03-28 15:21] VITALS: BP 122/78
[2021-03-28] MEDS: RIVAROXABAN 10 MG TABLET. PO SCH (17:19)
--- NOTE | 2021-03-28 18:30 | NUR ---
Patient has continued to be tearful and repeatedly calling out throughout this shift. She stops when staff interact with her and then starts again shortly after the interaction is done. Will continue to monitor and report to oncoming shift.
[2021-03-28] MEDS: HYDROCORTISONE 1% TOPICAL OINTMENT 30GM TUBE. TP SCH (21:21)
[2021-03-28] MEDS: MIRTAZAPINE 15 MG TABLET PO SCH (21:21)
--- NOTE | 2021-03-28 21:57 | PDOC ---
Exam Note: Morgan Note: Please also refer to the separate dictated note~for this date of service dictated separately.~Patient seen individually. Discussed the patient with Nursing staff reviewed the chart.~Reviewed interim history and current functioning. Reviewed vital signs,~Labs/ Radiology~and current medications noted below. Continue current treatment with the changes noted in the dictated addendum note Assessment: Vital Signs/I&O: Vital Signs Date Time Temp Pulse Resp B/P (MAP) Pulse Ox O2 Delivery O2 Flow Rate FiO2 03/28/21 15:21 97.9 73 18 122/78 (93) 95 03/27/21 15:53 Room Air I & O 03/27/21 03/27/21 03/28/21 14:00 22:00 06:00 Intake Total 360 ml 490 ml 120 ml Balance 360 ml 490 ml 120 ml Current Medications: Meds: Current Medications Medications (Trade) Dose Ordered Sig/Wing Route PRN Reason Start Time Stop Time Status Last Admin Dose Admin Albuterol Sulfate (Ventolin) 2.5 mg PRN QID PRN IH wheezing 03/17/21 19:45 Furosemide (Lasix) 60 mg DAILY PO 03/18/21 09:00 03/28/21 08:08 Pantoprazole Sodium (Protonix) 40 mg BIDBFRMEAL PO 03/18/21 07:30 03/28/21 17:19 Fenofibrate (Tricor) 145 mg DAILY PO 03/18/21 09:00 03/28/21 08:07 Potassium Chloride (Klor-Con) 30 meq DAILYWBKFT PO 03/18/21 08:00 03/28/21 08:07 Rivaroxaban (Xarelto) 20 mg DAILYWSUP PO 03/17/21 20:00 03/28/21 17:19 Lorazepam (Ativan) 1 mg PRN TID PRN PO ANXIETY / AGITATION 03/17/21 19:45 03/26/21 12:36 DC 03/17/21 20:19 Quetiapine Fumarate (SEROquel) 50 mg DAILYWSUP PO 03/17/21 20:00 03/19/21 11:53 DC 03/18/21 17:15 Sertraline HCl (Zoloft) 200 mg DAILY PO 03/18/21 09:00 03/22/21 19:40 DC 03/22/21 08:42 Temazepam (Restoril) 15 mg PRN QHS PRN PO 2nd choice INSOMNIA 03/17/21 19:45 03/23/21 22:08 Trazodone HCl (Desyrel) 100 mg HS PO 03/17/21 21:00 03/26/21 12:36 DC 03/25/21 19:59 Acetaminophen (Tylenol) 650 mg PRN Q6HRS PRN PO MILD PAIN / TEMP > 100.3'F 03/17/21 19:45 03/19/21 08:36 Multi-Ingredient Ointment (Analgesic [place]) 1 ravin PRN QID PRN TP MUSCLE PAIN 03/17/21 19:45 Al Hydroxide/Mg Hydroxide (Mylanta Plus Xs) 15 ml PRN AFTMEALHC PRN PO DYSPEPSIA 03/17/21 19:45 Magnesium Hydroxide (Milk Of Magnesia) 2,400 mg PRN QHS PRN PO CONSTIPATION 03/17/21 19:45 Mirtazapine (Remeron) 7.5 mg QHS PO 03/18/21 21:00 03/28/21 18:25 DC 03/27/21 20:05 Olanzapine (ZyPREXA ZYDIS) 2.5 mg PRN Q2HRS PRN PO PSYCHOSIS 03/18/21 10:30 03/28/21 10:31 Vitamin D (Vitamin D3) 50,000 unit WEEKLY PO 03/18/21 18:00 03/25/21 08:07 Ferrous Sulfate (Feosol) 325 mg BIDWMEALS PO 03/18/21 18:00 03/28/21 17:19 Ascorbic Acid (Vitamin C) 500 mg BID PO 03/18/21 21:00 03/28/21 21:21 Vitamin D (Vitamin D3) 50,000 unit WEEKLY PO 03/19/21 09:00 03/18/21 17:45 DC Ferrous Sulfate (Feosol) 325 mg BID PO 03/18/21 21:00 03/18/21 17:45 DC Ascorbic Acid (Vitamin C) 500 mg BID PO 03/18/21 21:00 03/18/21 17:45 DC Quetiapine Fumarate (SEROquel) 25 mg 0900,1300,1700 PO 03/19/21 13:00 03/21/21 16:43 DC 03/21/21 13:27 Quetiapine Fumarate (SEROquel) 37.5 mg 0900,1300,1700 PO 03/21/21 17:00 03/22/21 16:40 DC 03/22/21 12:37 Quetiapine Fumarate (SEROquel) 37.5 mg 1300,1700 PO 03/22/21 17:00 03/24/21 02:09 DC 03/23/21 16:47 Quetiapine Fumarate (SEROquel) 50 mg 0900 PO 03/23/21 09:00 03/26/21 12:36 DC 03/26/21 08:10 Sertraline HCl (Zoloft) 100 mg DAILY PO 03/23/21 09:00 03/24/21 21:11 DC 03/24/21 08:30 Sertraline HCl (Zoloft) 50 mg DAILY PO 03/23/21 09:00 03/24/21 21:11 DC 03/24/21 08:30 Quetiapine Fumarate (SEROquel) 37.5 mg DAILY@1700 PO 03/24/21 17:00 03/26/21 12:36 DC 03/25/21 16:40 Quetiapine Fumarate (SEROquel) 50 mg DAILY@1400 PO 03/24/21 14:00 03/26/21 12:36 DC 03/25/21 13:27 Duloxetine HCl (Cymbalta) 30 mg DAILY PO 03/25/21 09:00 03/27/21 11:00 DC 03/27/21 08:51 Duloxetine HCl (Cymbalta) 60 mg DAILY PO 03/28/21 09:00 03/28/21 08:07 Trazodone HCl (Desyrel) 100 mg PRN QHS PRN PO INSOMNIA 03/26/21 12:30 03/26/21 12:49 DC Trazodone HCl (Desyrel) 50 mg 1X ONCE PO 03/26/21 12:45 03/26/21 12:44 DC Trazodone HCl (Desyrel) 50 mg PRN QHS PRN PO 1ST CHOICE INSOMNIA 03/26/21 13:15 03/26/21 22:33 Aripiprazole (Abilify) 2 mg DAILY PO 03/28/21 09:00 03/28/21 08:06 Hydrocortisone (Cortaid) 1 ravin BID TP 03/28/21 21:00 03/28/21 21:21 Mirtazapine (Remeron) 15 mg QHS PO 03/28/21 21:00 03/28/21 21:21 Current Medications Medications (Trade) Dose Ordered Sig/Wing Route PRN Reason Start Time Stop Time Status Last Admin Dose Admin Duloxetine HCl (Cymbalta) 60 mg DAILY PO 03/28/21 09:00 03/28/21 08:07 Aripiprazole (Abilify) 2 mg DAILY PO 03/28/21 09:00 03/28/21 08:06 Hydrocortisone (Cortaid) 1 ravin BID TP 03/28/21 21:00 03/28/21 21:21 Mirtazapine (Remeron) 15 mg QHS PO 03/28/21 21:00 03/28/21 21:21 I have reviewed the current psychotropics carefully including drug interactions. Risk benefit ratio favors no change other than as noted in my dictated progress note. Diagnosis: Problems: (1) Major depressive disorder, recurrent episode (2) Impulse control disorder, unspecified (3) Anxiety disorder, unspecified (4) Major neurocognitive disorder (5) Dementia, vascular, with depression (6) Dementia, vascular, with delusions KADI YEPEZ MD Mar 28, 2021 21:57
--- NOTE | 2021-03-28 22:15 | NUR ---
Patient was in bed when nurse approached her with HS medications. She was cooperative and compliant. Patient has not been calling out tonight. Will continue to monitor.
[2021-03-29 05:21] VITALS: BP 140/81
[2021-03-29] MEDS: DULoxetine HCL 60 MG CAPSULE.DR PO SCH (08:03)
[2021-03-29] MEDS: FENOFIBRATE NANOCRYSTALLIZED 145 MG TABLET PO SCH (08:03)
[2021-03-29] MEDS: ARIPiprazole 2 MG TABLET PO SCH (08:03)
[2021-03-29] MEDS: FUROSEMIDE 20 MG TABLET PO SCH (08:04)
[2021-03-29] MEDS: PANTOPRAZOLE 40 MG TABLET. PO SCH ×2 (08:04→17:23)
[2021-03-29] MEDS: POTASSIUM CHLORIDE 10 MEQ TABLET.ER. PO SCH (08:04)
[2021-03-29] MEDS: ASCORBIC ACID 500 MG TABLET PO SCH ×2 (08:04→20:46)
[2021-03-29] MEDS: HYDROCORTISONE 1% TOPICAL OINTMENT 30GM TUBE. TP SCH ×2 (08:05→20:46)
[2021-03-29] MEDS: FERROUS SULFATE 325 MG TABLET. PO SCH ×2 (08:05→17:22)
--- NOTE | 2021-03-29 12:18 | NUR ---
DEMETRICE returned call to Paula, daughter, to provide update. Encouraged Paula to research memory care units or assisted living communities should Danica need increased support at time of d/c. Paula is also going to research claims sorter care as well. Paula will be involved in team meeting on 04/02/21.
[2021-03-29 16:25] VITALS: BP 113/79
[2021-03-29] MEDS: RIVAROXABAN 10 MG TABLET. PO SCH (17:23)
--- NOTE | 2021-03-29 18:30 | NUR ---
Patient has been labile, cooperative, and attention seeking through out this shift. She has alternated between being calm and tearful while calling out for her daughter to take her home. Will continue to monitor and report to oncoming shift.
[2021-03-29] MEDS: MIRTAZAPINE 15 MG TABLET PO SCH (20:46)
--- NOTE | 2021-03-29 22:10 | PDOC ---
Exam Note: Morgan Note: This note is a late entry for 03/27/2021 covers elements not covered in my initial note. Subjective: The patient was seen face to face in the evening of 03/27/2021 with Noah MONTERO, discussed and reviewed the chart. The patient slept 6-1/4 hours previous night. Patient remains somewhat anxious, restless, tearful, confused. I met with her in her room in the evening. Review of Systems: No CV, , pulmonary, eye, ENT system symptoms on review. Reliability poor. Mental Status Exam: The patient is oriented to herself. Insight and judgment, recent and remote memory, attention and concentration, fund of knowledge is poor consistent with her diagnoses. Laboratory Data: Reviewed. Impression: Major neurocognitive disorder Alzheimer, vascular with delusion, depression, behavioral disturbance. Anxiety disorder unspecified. Impulse control disorder unspecified. Major depressive disorder. Plan: Continue Cymbalta 60 mg a day, temazepam and trazodone for insomnia, Remeron 7.5 mg h.s. and augment the Cymbalta with Abilify 2 mg a day. Make further adjustments as clinically indicated. Assessment: Vital Signs/I&O: Vital Signs Date Time Temp Pulse Resp B/P (MAP) Pulse Ox O2 Delivery O2 Flow Rate FiO2 03/29/21 16:25 98.4 85 20 113/79 (90) 95 03/29/21 05:21 Room Air I & O 03/28/21 03/28/21 03/29/21 14:00 22:00 06:00 Intake Total 360 ml Balance 360 ml Current Medications: Meds: Current Medications Medications (Trade) Dose Ordered Sig/Wing Route PRN Reason Start Time Stop Time Status Last Admin Dose Admin Albuterol Sulfate (Ventolin) 2.5 mg PRN QID PRN IH wheezing 03/17/21 19:45 Furosemide (Lasix) 60 mg DAILY PO 03/18/21 09:00 03/29/21 08:04 Pantoprazole Sodium (Protonix) 40 mg BIDBFRMEAL PO 03/18/21 07:30 03/29/21 17:23 Fenofibrate (Tricor) 145 mg DAILY PO 03/18/21 09:00 03/29/21 08:03 Potassium Chloride (Klor-Con) 30 meq DAILYWBKFT PO 03/18/21 08:00 03/29/21 08:04 Rivaroxaban (Xarelto) 20 mg DAILYWSUP PO 03/17/21 20:00 03/29/21 17:23 Lorazepam (Ativan) 1 mg PRN TID PRN PO ANXIETY / AGITATION 03/17/21 19:45 03/26/21 12:36 DC 03/17/21 20:19 Quetiapine Fumarate (SEROquel) 50 mg DAILYWSUP PO 03/17/21 20:00 03/19/21 11:53 DC 03/18/21 17:15 Sertraline HCl (Zoloft) 200 mg DAILY PO 03/18/21 09:00 03/22/21 19:40 DC 03/22/21 08:42 Temazepam (Restoril) 15 mg PRN QHS PRN PO 2nd choice INSOMNIA 03/17/21 19:45 03/23/21 22:08 Trazodone HCl (Desyrel) 100 mg HS PO 03/17/21 21:00 03/26/21 12:36 DC 03/25/21 19:59 Acetaminophen (Tylenol) 650 mg PRN Q6HRS PRN PO MILD PAIN / TEMP > 100.3'F 03/17/21 19:45 03/19/21 08:36 Multi-Ingredient Ointment (Analgesic [place]) 1 ravin PRN QID PRN TP MUSCLE PAIN 03/17/21 19:45 Al Hydroxide/Mg Hydroxide (Mylanta Plus Xs) 15 ml PRN AFTMEALHC PRN PO DYSPEPSIA 03/17/21 19:45 Magnesium Hydroxide (Milk Of Magnesia) 2,400 mg PRN QHS PRN PO CONSTIPATION 03/17/21 19:45 Mirtazapine (Remeron) 7.5 mg QHS PO 03/18/21 21:00 03/28/21 18:25 DC 03/27/21 20:05 Olanzapine (ZyPREXA ZYDIS) 2.5 mg PRN Q2HRS PRN PO PSYCHOSIS 03/18/21 10:30 03/28/21 10:31 Vitamin D (Vitamin D3) 50,000 unit WEEKLY PO 03/18/21 18:00 03/25/21 08:07 Ferrous Sulfate (Feosol) 325 mg BIDWMEALS PO 03/18/21 18:00 03/29/21 17:22 Ascorbic Acid (Vitamin C) 500 mg BID PO 03/18/21 21:00 03/29/21 20:46 Vitamin D (Vitamin D3) 50,000 unit WEEKLY PO 03/19/21 09:00 03/18/21 17:45 DC Ferrous Sulfate (Feosol) 325 mg BID PO 03/18/21 21:00 03/18/21 17:45 DC Ascorbic Acid (Vitamin C) 500 mg BID PO 03/18/21 21:00 03/18/21 17:45 DC Quetiapine Fumarate (SEROquel) 25 mg 0900,1300,1700 PO 03/19/21 13:00 03/21/21 16:43 DC 03/21/21 13:27 Quetiapine Fumarate (SEROquel) 37.5 mg 0900,1300,1700 PO 03/21/21 17:00 03/22/21 16:40 DC 03/22/21 12:37 Quetiapine Fumarate (SEROquel) 37.5 mg 1300,1700 PO 03/22/21 17:00 03/24/21 02:09 DC 03/23/21 16:47 Quetiapine Fumarate (SEROquel) 50 mg 0900 PO 03/23/21 09:00 03/26/21 12:36 DC 03/26/21 08:10 Sertraline HCl (Zoloft) 100 mg DAILY PO 03/23/21 09:00 03/24/21 21:11 DC 03/24/21 08:30 Sertraline HCl (Zoloft) 50 mg DAILY PO 03/23/21 09:00 03/24/21 21:11 [place] 03/24/21 08:30 Quetiapine Fumarate (SEROquel) 37.5 mg DAILY@1700 PO 03/24/21 17:00 03/26/21 12:36 DC 03/25/21 16:40 Quetiapine Fumarate (SEROquel) 50 mg DAILY@1400 PO 03/24/21 14:00 03/26/21 12:36 [place] 03/25/21 13:27 Duloxetine HCl (Cymbalta) 30 mg DAILY PO 03/25/21 09:00 03/27/21 11:00 [place] 03/27/21 08:51 Duloxetine HCl (Cymbalta) 60 mg DAILY PO 03/28/21 09:00 03/29/21 08:03 Trazodone HCl (Desyrel) 100 mg PRN QHS PRN PO INSOMNIA 03/26/21 12:30 03/26/21 12:49 DC Trazodone HCl (Desyrel) 50 mg 1X ONCE PO 03/26/21 12:45 03/26/21 12:44 DC Trazodone HCl (Desyrel) 50 mg PRN QHS PRN PO 1ST CHOICE INSOMNIA 03/26/21 13:15 03/26/21 22:33 Aripiprazole (Abilify) 2 mg DAILY PO 03/28/21 09:00 03/29/21 08:03 Hydrocortisone (Cortaid) 1 ravin BID TP 03/28/21 21:00 03/29/21 20:46 Mirtazapine (Remeron) 15 mg QHS PO 03/28/21 21:00 03/29/21 20:46 I have reviewed the current psychotropics carefully including drug interactions. Risk benefit ratio favors no change other than as noted in my dictated progress note. Diagnosis: Problems: (1) Major depressive disorder, recurrent episode (2) Impulse control disorder, unspecified (3) Anxiety disorder, unspecified (4) Major neurocognitive disorder (5) Dementia, vascular, with depression (6) Dementia, vascular, with delusions KADI YEPEZ MD Mar 29, 2021 22:10
[2021-03-30 06:08] VITALS: BP 164/96
--- NOTE | 2021-03-30 08:38 | PDOC ---
Exam Note: Morgan Note: This note is a late entry for 03/28/2021 covers elements not covered in my initial note. Subjective: The patient was seen face to face in the evening of 03/28/2021 with Garrison MONTERO, discussed and reviewed the chart. The patient slept 3 hours previous night. Patient continues to have a labile mood, tearful at times, depressed, calling out for Paula take me home. Appetite is poor. She has been walking on her own, later in the day less crying. Review of Systems: No CV, , pulmonary, eye, ENT system symptoms on review. Reliability poor. Ambulation impaired with standby assist. Mental Status Exam: The patient is oriented to herself. Insight and judgment, recent and remote memory, attention and concentration, fund of knowledge is poor consistent with her diagnoses. Laboratory Data: Reviewed. Impression: Major neurocognitive disorder Alzheimer, vascular with delusion, depression, behavioral disturbance. Anxiety disorder unspecified. Impulse control disorder unspecified. Major depressive disorder. Plan: Continue current psychotropics. Cymbalta, temazepam, trazodone, Abilify 2 mg a day to augment the Cymbalta, Remeron will be increased to 15 mg h.s. Continue rest unchanged. Assessment: Vital Signs/I&O: Vital Signs Date Time Temp Pulse Resp B/P (MAP) Pulse Ox O2 Delivery O2 Flow Rate FiO2 03/30/21 06:08 98.1 88 18 164/96 (118) 97 Room Air I & O 03/29/21 03/29/21 03/30/21 14:00 22:00 06:00 Intake Total 360 ml 600 ml Balance 360 ml 600 ml Current Medications: Meds: Current Medications Medications (Trade) Dose Ordered Sig/Wing Route PRN Reason Start Time Stop Time Status Last Admin Dose Admin Albuterol Sulfate (Ventolin) 2.5 mg PRN QID PRN IH wheezing 03/17/21 19:45 Furosemide (Lasix) 60 mg DAILY PO 03/18/21 09:00 03/29/21 08:04 Pantoprazole Sodium (Protonix) 40 mg BIDBFRMEAL PO 03/18/21 07:30 03/29/21 17:23 Fenofibrate (Tricor) 145 mg DAILY PO 03/18/21 09:00 03/29/21 08:03 Potassium Chloride (Klor-Con) 30 meq DAILYWBKFT PO 03/18/21 08:00 03/29/21 08:04 Rivaroxaban (Xarelto) 20 mg DAILYWSUP PO 03/17/21 20:00 03/29/21 17:23 Lorazepam (Ativan) 1 mg PRN TID PRN PO ANXIETY / AGITATION 03/17/21 19:45 03/26/21 12:36 DC 03/17/21 20:19 Quetiapine Fumarate (SEROquel) 50 mg DAILYWSUP PO 03/17/21 20:00 03/19/21 11:53 DC 03/18/21 17:15 Sertraline HCl (Zoloft) 200 mg DAILY PO 03/18/21 09:00 03/22/21 19:40 DC 03/22/21 08:42 Temazepam (Restoril) 15 mg PRN QHS PRN PO 2nd choice INSOMNIA 03/17/21 19:45 03/23/21 22:08 Trazodone HCl (Desyrel) 100 mg HS PO 03/17/21 21:00 03/26/21 12:36 DC 03/25/21 19:59 Acetaminophen (Tylenol) 650 mg PRN Q6HRS PRN PO MILD PAIN / TEMP > 100.3'F 03/17/21 19:45 03/19/21 08:36 Multi-Ingredient Ointment (Analgesic [place]) 1 ravin PRN QID PRN TP MUSCLE PAIN 03/17/21 19:45 Al Hydroxide/Mg Hydroxide (Mylanta Plus Xs) 15 ml PRN AFTMEALHC PRN PO DYSPEPSIA 03/17/21 19:45 Magnesium Hydroxide (Milk Of Magnesia) 2,400 mg PRN QHS PRN PO CONSTIPATION 03/17/21 19:45 Mirtazapine (Remeron) 7.5 mg QHS PO 03/18/21 21:00 03/28/21 18:25 DC 03/27/21 20:05 Olanzapine (ZyPREXA ZYDIS) 2.5 mg PRN Q2HRS PRN PO PSYCHOSIS 03/18/21 10:30 03/28/21 10:31 Vitamin D (Vitamin D3) 50,000 unit WEEKLY PO 03/18/21 18:00 03/25/21 08:07 Ferrous Sulfate (Feosol) 325 mg BIDWMEALS PO 03/18/21 18:00 03/29/21 17:22 Ascorbic Acid (Vitamin C) 500 mg BID PO 03/18/21 21:00 03/29/21 20:46 Vitamin D (Vitamin D3) 50,000 unit WEEKLY PO 03/19/21 09:00 03/18/21 17:45 DC Ferrous Sulfate (Feosol) 325 mg BID PO 03/18/21 21:00 03/18/21 17:45 DC Ascorbic Acid (Vitamin C) 500 mg BID PO 03/18/21 21:00 03/18/21 17:45 DC Quetiapine Fumarate (SEROquel) 25 mg 0900,1300,1700 PO 03/19/21 13:00 03/21/21 16:43 DC 03/21/21 13:27 Quetiapine Fumarate (SEROquel) 37.5 mg 0900,1300,1700 PO 03/21/21 17:00 03/22/21 16:40 DC 03/22/21 12:37 Quetiapine Fumarate (SEROquel) 37.5 mg 1300,1700 PO 03/22/21 17:00 03/24/21 02:09 DC 03/23/21 16:47 Quetiapine Fumarate (SEROquel) 50 mg 0900 PO 03/23/21 09:00 03/26/21 12:36 DC 03/26/21 08:10 Sertraline HCl (Zoloft) 100 mg DAILY PO 03/23/21 09:00 03/24/21 21:11 DC 03/24/21 08:30 Sertraline HCl (Zoloft) 50 mg DAILY PO 03/23/21 09:00 03/24/21 21:11 DC 03/24/21 08:30 Quetiapine Fumarate (SEROquel) 37.5 mg DAILY@1700 PO 03/24/21 17:00 03/26/21 12:36 DC 03/25/21 16:40 Quetiapine Fumarate (SEROquel) 50 mg DAILY@1400 PO 03/24/21 14:00 03/26/21 12:36 DC 03/25/21 13:27 Duloxetine HCl (Cymbalta) 30 mg DAILY PO 03/25/21 09:00 03/27/21 11:00 DC 03/27/21 08:51 Duloxetine HCl (Cymbalta) 60 mg DAILY PO 03/28/21 09:00 03/29/21 08:03 Trazodone HCl (Desyrel) 100 mg PRN QHS PRN PO INSOMNIA 03/26/21 12:30 03/26/21 12:49 DC Trazodone HCl (Desyrel) 50 mg 1X ONCE PO 03/26/21 12:45 03/26/21 12:44 DC Trazodone HCl (Desyrel) 50 mg PRN QHS PRN PO 1ST CHOICE INSOMNIA 03/26/21 13:15 03/26/21 22:33 Aripiprazole (Abilify) 2 mg DAILY PO 03/28/21 09:00 03/30/21 03:17 DC 03/29/21 08:03 Hydrocortisone (Cortaid) 1 ravin BID TP 03/28/21 21:00 03/29/21 20:46 Mirtazapine (Remeron) 15 mg QHS PO 03/28/21 21:00 03/29/21 20:46 Aripiprazole (Abilify) 5 mg DAILY PO 03/30/21 09:00 I have reviewed the current psychotropics carefully including drug interactions. Risk benefit ratio favors no change other than as noted in my dictated progress note. Diagnosis: Problems: (1) Major depressive disorder, recurrent episode (2) Impulse control disorder, unspecified (3) Anxiety disorder, unspecified (4) Major neurocognitive disorder (5) Dementia, vascular, with depression (6) Dementia, vascular, with delusions KADI YEPEZ MD Mar 30, 2021 08:38
[2021-03-30] MEDS: HYDROCORTISONE 1% TOPICAL OINTMENT 30GM TUBE. TP SCH ×2 (08:49→20:39)
[2021-03-30] MEDS: ARIPiprazole 5 MG TABLET PO SCH (08:49)
[2021-03-30] MEDS: FUROSEMIDE 20 MG TABLET PO SCH (08:50)
[2021-03-30] MEDS: POTASSIUM CHLORIDE 10 MEQ TABLET.ER. PO SCH (08:50)
[2021-03-30] MEDS: ASCORBIC ACID 500 MG TABLET PO SCH ×2 (08:51→20:39)
[2021-03-30] MEDS: PANTOPRAZOLE 40 MG TABLET. PO SCH ×2 (08:51→17:29)
[2021-03-30] MEDS: DULoxetine HCL 60 MG CAPSULE.DR PO SCH (08:51)
[2021-03-30] MEDS: FERROUS SULFATE 325 MG TABLET. PO SCH ×2 (08:51→17:29)
[2021-03-30] MEDS: FENOFIBRATE NANOCRYSTALLIZED 145 MG TABLET PO SCH (08:51)
--- NOTE | 2021-03-30 09:18 | PDOC ---
Exam Note: Morgan Note: This note is a late entry for 03/29/2021 covers elements not covered in my initial note. Subjective: The patient was seen face to face in the evening of 03/29/2021 with Joelle MONTERO, discussed and reviewed the chart. The patient slept 5-1/4 hours previous night. Patient was yelling in the morning, better in the afternoon. She has been ambulating on her own and with the walker. Review of Systems: No CV, , pulmonary, eye, ENT system symptoms on review. Mental Status Exam: The patient is oriented to herself. Insight and judgment, recent and remote memory, attention and concentration, fund of knowledge is poor consistent with her diagnoses. Laboratory Data: Reviewed. Impression: Major neurocognitive disorder Alzheimer, vascular with delusion, depression, behavioral disturbance. Anxiety disorder unspecified. Impulse control disorder unspecified. Major depressive disorder. Plan: Continue current psychotropics. Increase Abilify from 2 mg a day to 5 mg a day to augment Cymbalta 60 mg a day to help with mood lability and it seems to be helping. Assessment: Vital Signs/I&O: Vital Signs Date Time Temp Pulse Resp B/P (MAP) Pulse Ox O2 Delivery O2 Flow Rate FiO2 03/30/21 06:08 98.1 88 18 164/96 (118) 97 Room Air I & O 03/29/21 03/29/21 03/30/21 14:00 22:00 06:00 Intake Total 360 ml 600 ml Balance 360 ml 600 ml Current Medications: Meds: Current Medications Medications (Trade) Dose Ordered Sig/Wing Route PRN Reason Start Time Stop Time Status Last Admin Dose Admin Albuterol Sulfate (Ventolin) 2.5 mg PRN QID PRN IH wheezing 03/17/21 19:45 Furosemide (Lasix) 60 mg DAILY PO 03/18/21 09:00 03/30/21 08:50 Pantoprazole Sodium (Protonix) 40 mg BIDBFRMEAL PO 03/18/21 07:30 03/30/21 08:51 Fenofibrate (Tricor) 145 mg DAILY PO 03/18/21 09:00 03/30/21 08:51 Potassium Chloride (Klor-Con) 30 meq DAILYWBKFT PO 03/18/21 08:00 03/30/21 08:50 Rivaroxaban (Xarelto) 20 mg DAILYWSUP PO 03/17/21 20:00 03/29/21 17:23 Lorazepam (Ativan) 1 mg PRN TID PRN PO ANXIETY / AGITATION 03/17/21 19:45 03/26/21 12:36 DC 03/17/21 20:19 Quetiapine Fumarate (SEROquel) 50 mg DAILYWSUP PO 03/17/21 20:00 03/19/21 11:53 DC 03/18/21 17:15 Sertraline HCl (Zoloft) 200 mg DAILY PO 03/18/21 09:00 03/22/21 19:40 DC 03/22/21 08:42 Temazepam (Restoril) 15 mg PRN QHS PRN PO 2nd choice INSOMNIA 03/17/21 19:45 03/23/21 22:08 Trazodone HCl (Desyrel) 100 mg HS PO 03/17/21 21:00 03/26/21 12:36 DC 03/25/21 19:59 Acetaminophen (Tylenol) 650 mg PRN Q6HRS PRN PO MILD PAIN / TEMP > 100.3'F 03/17/21 19:45 03/19/21 08:36 Multi-Ingredient Ointment (Analgesic [place]) 1 ravin PRN QID PRN TP MUSCLE PAIN 03/17/21 19:45 Al Hydroxide/Mg Hydroxide (Mylanta Plus Xs) 15 ml PRN AFTMEALHC PRN PO DYSPEPSIA 03/17/21 19:45 Magnesium Hydroxide (Milk Of Magnesia) 2,400 mg PRN QHS PRN PO CONSTIPATION 03/17/21 19:45 Mirtazapine (Remeron) 7.5 mg QHS PO 03/18/21 21:00 03/28/21 18:25 DC 03/27/21 20:05 Olanzapine (ZyPREXA ZYDIS) 2.5 mg PRN Q2HRS PRN PO PSYCHOSIS 03/18/21 10:30 03/30/21 08:51 Vitamin D (Vitamin D3) 50,000 unit WEEKLY PO 03/18/21 18:00 03/25/21 08:07 Ferrous Sulfate (Feosol) 325 mg BIDWMEALS PO 03/18/21 18:00 03/30/21 08:51 Ascorbic Acid (Vitamin C) 500 mg BID PO 03/18/21 21:00 03/30/21 08:51 Vitamin D (Vitamin D3) 50,000 unit WEEKLY PO 03/19/21 09:00 03/18/21 17:45 DC Ferrous Sulfate (Feosol) 325 mg BID PO 03/18/21 21:00 03/18/21 17:45 DC Ascorbic Acid (Vitamin C) 500 mg BID PO 03/18/21 21:00 03/18/21 17:45 DC Quetiapine Fumarate (SEROquel) 25 mg 0900,1300,1700 PO 03/19/21 13:00 03/21/21 16:43 DC 03/21/21 13:27 Quetiapine Fumarate (SEROquel) 37.5 mg 0900,1300,1700 PO 03/21/21 17:00 03/22/21 16:40 DC 03/22/21 12:37 Quetiapine Fumarate (SEROquel) 37.5 mg 1300,1700 PO 03/22/21 17:00 03/24/21 02:09 DC 03/23/21 16:47 Quetiapine Fumarate (SEROquel) 50 mg 0900 PO 03/23/21 09:00 03/26/21 12:36 DC 03/26/21 08:10 Sertraline HCl (Zoloft) 100 mg DAILY PO 03/23/21 09:00 03/24/21 21:11 DC 03/24/21 08:30 Sertraline HCl (Zoloft) 50 mg DAILY PO 03/23/21 09:00 03/24/21 21:11 DC 03/24/21 08:30 Quetiapine Fumarate (SEROquel) 37.5 mg DAILY@1700 PO 03/24/21 17:00 03/26/21 12:36 DC 03/25/21 16:40 Quetiapine Fumarate (SEROquel) 50 mg DAILY@1400 PO 03/24/21 14:00 03/26/21 12:36 DC 03/25/21 13:27 Duloxetine HCl (Cymbalta) 30 mg DAILY PO 03/25/21 09:00 03/27/21 11:00 DC 03/27/21 08:51 Duloxetine HCl (Cymbalta) 60 mg DAILY PO 03/28/21 09:00 03/30/21 08:51 Trazodone HCl (Desyrel) 100 mg PRN QHS PRN PO INSOMNIA 03/26/21 12:30 03/26/21 12:49 DC Trazodone HCl (Desyrel) 50 mg 1X ONCE PO 03/26/21 12:45 03/26/21 12:44 DC Trazodone HCl (Desyrel) 50 mg PRN QHS PRN PO 1ST CHOICE INSOMNIA 03/26/21 13:15 03/26/21 22:33 Aripiprazole (Abilify) 2 mg DAILY PO 03/28/21 09:00 03/30/21 03:17 DC 03/29/21 08:03 Hydrocortisone (Cortaid) 1 ravin BID TP 03/28/21 21:00 03/30/21 08:49 Mirtazapine (Remeron) 15 mg QHS PO 03/28/21 21:00 03/29/21 20:46 Aripiprazole (Abilify) 5 mg DAILY PO 03/30/21 09:00 03/30/21 08:49 Current Medications Medications (Trade) Dose Ordered Sig/Wing Route PRN Reason Start Time Stop Time Status Last Admin Dose Admin Aripiprazole (Abilify) 5 mg DAILY PO 03/30/21 09:00 03/30/21 08:49 I have reviewed the current psychotropics carefully including drug interactions. Risk benefit ratio favors no change other than as noted in my dictated progress note. Diagnosis: Problems: (1) Major depressive disorder, recurrent episode (2) Impulse control disorder, unspecified (3) Anxiety disorder, unspecified (4) Major neurocognitive disorder (5) Dementia, vascular, with depression (6) Dementia, vascular, with delusions KADI YEPEZ MD Mar 30, 2021 09:18
[2021-03-30 15:37] VITALS: BP 113/60
[2021-03-30] MEDS: RIVAROXABAN 10 MG TABLET. PO SCH (17:29)
[2021-03-30] MEDS: MIRTAZAPINE 15 MG TABLET PO SCH (20:39)
--- NOTE | 2021-03-30 22:03 | PDOC ---
Exam Note: Morgan Note: Please also refer to the separate dictated note~for this date of service dictated separately.~Patient seen individually. Discussed the patient with Nursing staff reviewed the chart.~Reviewed interim history and current functioning. Reviewed vital signs,~Labs/ Radiology~and current medications noted below. Continue current treatment with the changes noted in the dictated addendum note Assessment: Vital Signs/I&O: Vital Signs Date Time Temp Pulse Resp B/P (MAP) Pulse Ox O2 Delivery O2 Flow Rate FiO2 03/30/21 15:37 97.4 85 20 113/60 (77) 97 Room Air I & O 03/29/21 03/29/21 03/30/21 14:00 22:00 06:00 Intake Total 360 ml 600 ml Balance 360 ml 600 ml Current Medications: Meds: Current Medications Medications (Trade) Dose Ordered Sig/Wing Route PRN Reason Start Time Stop Time Status Last Admin Dose Admin Albuterol Sulfate (Ventolin) 2.5 mg PRN QID PRN IH wheezing 03/17/21 19:45 Furosemide (Lasix) 60 mg DAILY PO 03/18/21 09:00 03/30/21 08:50 Pantoprazole Sodium (Protonix) 40 mg BIDBFRMEAL PO 03/18/21 07:30 03/30/21 17:29 Fenofibrate (Tricor) 145 mg DAILY PO 03/18/21 09:00 03/30/21 08:51 Potassium Chloride (Klor-Con) 30 meq DAILYWBKFT PO 03/18/21 08:00 03/30/21 08:50 Rivaroxaban (Xarelto) 20 mg DAILYWSUP PO 03/17/21 20:00 03/30/21 17:29 Lorazepam (Ativan) 1 mg PRN TID PRN PO ANXIETY / AGITATION 03/17/21 19:45 03/26/21 12:36 DC 03/17/21 20:19 Quetiapine Fumarate (SEROquel) 50 mg DAILYWSUP PO 03/17/21 20:00 03/19/21 11:53 DC 03/18/21 17:15 Sertraline HCl (Zoloft) 200 mg DAILY PO 03/18/21 09:00 03/22/21 19:40 DC 03/22/21 08:42 Temazepam (Restoril) 15 mg PRN QHS PRN PO 2nd choice INSOMNIA 03/17/21 19:45 03/23/21 22:08 Trazodone HCl (Desyrel) 100 mg HS PO 03/17/21 21:00 03/26/21 12:36 DC 03/25/21 19:59 Acetaminophen (Tylenol) 650 mg PRN Q6HRS PRN PO MILD PAIN / TEMP > 100.3'F 03/17/21 19:45 03/19/21 08:36 Multi-Ingredient Ointment (Analgesic [place]) 1 ravin PRN QID PRN TP MUSCLE PAIN 03/17/21 19:45 Al Hydroxide/Mg Hydroxide (Mylanta Plus Xs) 15 ml PRN AFTMEALHC PRN PO DYSPEPSIA 03/17/21 19:45 Magnesium Hydroxide (Milk Of Magnesia) 2,400 mg PRN QHS PRN PO CONSTIPATION 03/17/21 19:45 Mirtazapine (Remeron) 7.5 mg QHS PO 03/18/21 21:00 03/28/21 18:25 DC 03/27/21 20:05 Olanzapine (ZyPREXA ZYDIS) 2.5 mg PRN Q2HRS PRN PO PSYCHOSIS 03/18/21 10:30 03/30/21 08:51 Vitamin D (Vitamin D3) 50,000 unit WEEKLY PO 03/18/21 18:00 03/25/21 08:07 Ferrous Sulfate (Feosol) 325 mg BIDWMEALS PO 03/18/21 18:00 03/30/21 17:29 Ascorbic Acid (Vitamin C) 500 mg BID PO 03/18/21 21:00 03/30/21 20:39 Vitamin D (Vitamin D3) 50,000 unit WEEKLY PO 03/19/21 09:00 03/18/21 17:45 DC Ferrous Sulfate (Feosol) 325 mg BID PO 03/18/21 21:00 03/18/21 17:45 DC Ascorbic Acid (Vitamin C) 500 mg BID PO 03/18/21 21:00 03/18/21 17:45 DC Quetiapine Fumarate (SEROquel) 25 mg 0900,1300,1700 PO 03/19/21 13:00 03/21/21 16:43 DC 03/21/21 13:27 Quetiapine Fumarate (SEROquel) 37.5 mg 0900,1300,1700 PO 03/21/21 17:00 03/22/21 16:40 DC 03/22/21 12:37 Quetiapine Fumarate (SEROquel) 37.5 mg 1300,1700 PO 03/22/21 17:00 03/24/21 02:09 DC 03/23/21 16:47 Quetiapine Fumarate (SEROquel) 50 mg 0900 PO 03/23/21 09:00 03/26/21 12:36 DC 03/26/21 08:10 Sertraline HCl (Zoloft) 100 mg DAILY PO 03/23/21 09:00 03/24/21 21:11 DC 03/24/21 08:30 Sertraline HCl (Zoloft) 50 mg DAILY PO 03/23/21 09:00 03/24/21 21:11 DC 03/24/21 08:30 Quetiapine Fumarate (SEROquel) 37.5 mg DAILY@1700 PO 03/24/21 17:00 03/26/21 12:36 DC 03/25/21 16:40 Quetiapine Fumarate (SEROquel) 50 mg DAILY@1400 PO 03/24/21 14:00 03/26/21 12:36 DC 03/25/21 13:27 Duloxetine HCl (Cymbalta) 30 mg DAILY PO 03/25/21 09:00 03/27/21 11:00 DC 03/27/21 08:51 Duloxetine HCl (Cymbalta) 60 mg DAILY PO 03/28/21 09:00 03/30/21 08:51 Trazodone HCl (Desyrel) 100 mg PRN QHS PRN PO INSOMNIA 03/26/21 12:30 03/26/21 12:49 DC Trazodone HCl (Desyrel) 50 mg 1X ONCE PO 03/26/21 12:45 03/26/21 12:44 DC Trazodone HCl (Desyrel) 50 mg PRN QHS PRN PO 1ST CHOICE INSOMNIA 03/26/21 13:15 03/26/21 22:33 Aripiprazole (Abilify) 2 mg DAILY PO 03/28/21 09:00 03/30/21 03:17 DC 03/29/21 08:03 Hydrocortisone (Cortaid) 1 ravin BID TP 03/28/21 21:00 03/30/21 20:39 Mirtazapine (Remeron) 15 mg QHS PO 03/28/21 21:00 03/30/21 20:39 Aripiprazole (Abilify) 5 mg DAILY PO 03/30/21 09:00 03/30/21 08:49 Current Medications Medications (Trade) Dose Ordered Sig/Wing Route PRN Reason Start Time Stop Time Status Last Admin Dose Admin Aripiprazole (Abilify) 5 mg DAILY PO 03/30/21 09:00 03/30/21 08:49 I have reviewed the current psychotropics carefully including drug interactions. Risk benefit ratio favors no change other than as noted in my dictated progress note. Diagnosis: Problems: (1) Major depressive disorder, recurrent episode (2) Impulse control disorder, unspecified (3) Anxiety disorder, unspecified (4) Major neurocognitive disorder (5) Dementia, vascular, with depression (6) Dementia, vascular, with delusions KADI YEPEZ MD Mar 30, 2021 22:03
--- NOTE | 2021-03-30 23:15 | NUR ---
Patient is in her room on assumption of care, awake in bed. She is flat, disorganized. She was compliant with taking her medications whole. She denies any pain or discomfort. No delusions voiced so far this shift, and patient has not called out for her daughter. She appears to be sleeping comfortably at present time. Will continue to monitor.
[2021-03-31 06:08] VITALS: BP 125/75
[2021-03-31] MEDS: POTASSIUM CHLORIDE 10 MEQ TABLET.ER. PO SCH (08:00)
[2021-03-31] MEDS: PANTOPRAZOLE 40 MG TABLET. PO SCH ×2 (08:28→17:32)
[2021-03-31] MEDS: FERROUS SULFATE 325 MG TABLET. PO SCH ×2 (08:28→17:32)
[2021-03-31] MEDS: ASCORBIC ACID 500 MG TABLET PO SCH ×2 (08:28→20:10)
[2021-03-31] MEDS: ARIPiprazole 5 MG TABLET PO SCH (08:28)
[2021-03-31] MEDS: FUROSEMIDE 20 MG TABLET PO SCH (08:28)
[2021-03-31] MEDS: FENOFIBRATE NANOCRYSTALLIZED 145 MG TABLET PO SCH (08:31)
[2021-03-31] MEDS: DULoxetine HCL 60 MG CAPSULE.DR PO SCH (08:31)
[2021-03-31] MEDS: HYDROCORTISONE 1% TOPICAL OINTMENT 30GM TUBE. TP SCH ×2 (08:37→20:11)
--- NOTE | 2021-03-31 11:24 | NUR ---
Nurse Note Patient up for meals, complaint with medication. walkin with walker in hallway and room.patient has been crying for daughter all day, patient redirected but continues in hallway asking for daughter to come get her. Patient was redirected on why she was here and that her daughter will call her back shortly. Patient received 2.5 mg Zydis prn.
[2021-03-31 15:46] VITALS: BP 102/63
[2021-03-31] MEDS: RIVAROXABAN 10 MG TABLET. PO SCH (17:32)
[2021-03-31] MEDS: MIRTAZAPINE 15 MG TABLET PO SCH (20:10)
--- NOTE | 2021-03-31 22:15 | PDOC ---
Exam Note: Morgan Note: Please also refer to the separate dictated note~for this date of service dictated separately.~Patient seen individually. Discussed the patient with Nursing staff reviewed the chart.~Reviewed interim history and current functioning. Reviewed vital signs,~Labs/ Radiology~and current medications noted below. Continue current treatment with the changes noted in the dictated addendum note Assessment: Vital Signs/I&O: Vital Signs Date Time Temp Pulse Resp B/P (MAP) Pulse Ox O2 Delivery O2 Flow Rate FiO2 03/31/21 15:46 97.4 86 20 102/63 (76) 97 Room Air I & O 03/30/21 03/30/21 03/31/21 14:00 22:00 06:00 Intake Total 480 ml 240 ml 240 ml Balance 480 ml 240 ml 240 ml Current Medications: Meds: Current Medications Medications (Trade) Dose Ordered Sig/Wing Route PRN Reason Start Time Stop Time Status Last Admin Dose Admin Albuterol Sulfate (Ventolin) 2.5 mg PRN QID PRN IH wheezing 03/17/21 19:45 Furosemide (Lasix) 60 mg DAILY PO 03/18/21 09:00 03/31/21 08:28 Pantoprazole Sodium (Protonix) 40 mg BIDBFRMEAL PO 03/18/21 07:30 03/31/21 17:32 Fenofibrate (Tricor) 145 mg DAILY PO 03/18/21 09:00 03/31/21 08:31 Potassium Chloride (Klor-Con) 30 meq DAILYWBKFT PO 03/18/21 08:00 03/31/21 08:00 Rivaroxaban (Xarelto) 20 mg DAILYWSUP PO 03/17/21 20:00 03/31/21 17:32 Lorazepam (Ativan) 1 mg PRN TID PRN PO ANXIETY / AGITATION 03/17/21 19:45 03/26/21 12:36 DC 03/17/21 20:19 Quetiapine Fumarate (SEROquel) 50 mg DAILYWSUP PO 03/17/21 20:00 03/19/21 11:53 DC 03/18/21 17:15 Sertraline HCl (Zoloft) 200 mg DAILY PO 03/18/21 09:00 03/22/21 19:40 DC 03/22/21 08:42 Temazepam (Restoril) 15 mg PRN QHS PRN PO 2nd choice INSOMNIA 03/17/21 19:45 03/23/21 22:08 Trazodone HCl (Desyrel) 100 mg HS PO 03/17/21 21:00 03/26/21 12:36 DC 03/25/21 19:59 Acetaminophen (Tylenol) 650 mg PRN Q6HRS PRN PO MILD PAIN / TEMP > 100.3'F 03/17/21 19:45 03/19/21 08:36 Multi-Ingredient Ointment (Analgesic [place]) 1 ravin PRN QID PRN TP MUSCLE PAIN 03/17/21 19:45 Al Hydroxide/Mg Hydroxide (Mylanta Plus Xs) 15 ml PRN AFTMEALHC PRN PO DYSPEPSIA 03/17/21 19:45 Magnesium Hydroxide (Milk Of Magnesia) 2,400 mg PRN QHS PRN PO CONSTIPATION 03/17/21 19:45 Mirtazapine (Remeron) 7.5 mg QHS PO 03/18/21 21:00 03/28/21 18:25 DC 03/27/21 20:05 Olanzapine (ZyPREXA ZYDIS) 2.5 mg PRN Q2HRS PRN PO PSYCHOSIS 03/18/21 10:30 03/31/21 11:20 Vitamin D (Vitamin D3) 50,000 unit WEEKLY PO 03/18/21 18:00 03/25/21 08:07 Ferrous Sulfate (Feosol) 325 mg BIDWMEALS PO 03/18/21 18:00 03/31/21 17:32 Ascorbic Acid (Vitamin C) 500 mg BID PO 03/18/21 21:00 03/31/21 20:10 Vitamin D (Vitamin D3) 50,000 unit WEEKLY PO 03/19/21 09:00 03/18/21 17:45 DC Ferrous Sulfate (Feosol) 325 mg BID PO 03/18/21 21:00 03/18/21 17:45 DC Ascorbic Acid (Vitamin C) 500 mg BID PO 03/18/21 21:00 03/18/21 17:45 DC Quetiapine Fumarate (SEROquel) 25 mg 0900,1300,1700 PO 03/19/21 13:00 03/21/21 16:43 DC 03/21/21 13:27 Quetiapine Fumarate (SEROquel) 37.5 mg 0900,1300,1700 PO 03/21/21 17:00 03/22/21 16:40 DC 03/22/21 12:37 Quetiapine Fumarate (SEROquel) 37.5 mg 1300,1700 PO 03/22/21 17:00 03/24/21 02:09 DC 03/23/21 16:47 Quetiapine Fumarate (SEROquel) 50 mg 0900 PO 03/23/21 09:00 03/26/21 12:36 DC 03/26/21 08:10 Sertraline HCl (Zoloft) 100 mg DAILY PO 03/23/21 09:00 03/24/21 21:11 DC 03/24/21 08:30 Sertraline HCl (Zoloft) 50 mg DAILY PO 03/23/21 09:00 03/24/21 21:11 DC 03/24/21 08:30 Quetiapine Fumarate (SEROquel) 37.5 mg DAILY@1700 PO 03/24/21 17:00 03/26/21 12:36 DC 03/25/21 16:40 Quetiapine Fumarate (SEROquel) 50 mg DAILY@1400 PO 03/24/21 14:00 03/26/21 12:36 DC 03/25/21 13:27 Duloxetine HCl (Cymbalta) 30 mg DAILY PO 03/25/21 09:00 03/27/21 11:00 DC 03/27/21 08:51 Duloxetine HCl (Cymbalta) 60 mg DAILY PO 03/28/21 09:00 03/31/21 08:31 Trazodone HCl (Desyrel) 100 mg PRN QHS PRN PO INSOMNIA 03/26/21 12:30 03/26/21 12:49 DC Trazodone HCl (Desyrel) 50 mg 1X ONCE PO 03/26/21 12:45 03/26/21 12:44 DC Trazodone HCl (Desyrel) 50 mg PRN QHS PRN PO 1ST CHOICE INSOMNIA 03/26/21 13:15 03/26/21 22:33 Aripiprazole (Abilify) 2 mg DAILY PO 03/28/21 09:00 03/30/21 03:17 DC 03/29/21 08:03 Hydrocortisone (Cortaid) 1 ravin BID TP 03/28/21 21:00 03/31/21 20:11 Mirtazapine (Remeron) 15 mg QHS PO 03/28/21 21:00 03/31/21 20:10 Aripiprazole (Abilify) 5 mg DAILY PO 03/30/21 09:00 03/31/21 08:28 I have reviewed the current psychotropics carefully including drug interactions. Risk benefit ratio favors no change other than as noted in my dictated progress note. Diagnosis: Problems: (1) Major depressive disorder, recurrent episode (2) Impulse control disorder, unspecified (3) Anxiety disorder, unspecified (4) Major neurocognitive disorder (5) Dementia, vascular, with depression (6) Dementia, vascular, with delusions KADI YEPEZ MD Mar 31, 2021 22:15
--- NOTE | 2021-03-31 22:17 | NUR ---
Patient is in her room on assumption of care, awake in bed. She is flat, disorganized. She was compliant with taking her medications whole. Cooperative with shower and HS cares. She denies any pain or discomfort. No delusions voiced so far this shift, and patient has not called out for her daughter. She appears to be sleeping comfortably at present time. Will continue to monitor.
[2021-04-01 06:11] VITALS: BP 136/64
[2021-04-01] MEDS: POTASSIUM CHLORIDE 10 MEQ TABLET.ER. PO SCH (08:00)
[2021-04-01] MEDS: CHOLECALCIFEROL (VITAMIN D3) 50,000 UNIT CAPSULE PO SCH (08:25)
[2021-04-01] MEDS: PANTOPRAZOLE 40 MG TABLET. PO SCH ×2 (08:25→16:48)
[2021-04-01] MEDS: ASCORBIC ACID 500 MG TABLET PO SCH ×2 (08:25→20:29)
[2021-04-01] MEDS: FERROUS SULFATE 325 MG TABLET. PO SCH ×2 (08:25→16:48)
[2021-04-01] MEDS: FUROSEMIDE 20 MG TABLET PO SCH (08:26)
[2021-04-01] MEDS: FENOFIBRATE NANOCRYSTALLIZED 145 MG TABLET PO SCH (08:26)
[2021-04-01] MEDS: DULoxetine HCL 60 MG CAPSULE.DR PO SCH (08:26)
[2021-04-01] MEDS: HYDROCORTISONE 1% TOPICAL OINTMENT 30GM TUBE. TP SCH ×2 (08:26→20:29)
[2021-04-01] MEDS: ARIPiprazole 5 MG TABLET PO SCH (08:26)
[2021-04-01 10:34] LABS: BASO # 0.1 x10^3/uL (0.0-0.2); BASO % 1 % (0-3); EOS # 0.1 x10^3/uL (0.0-0.7); EOS % 2 % (0-3); HEMATOCRIT 39.1 % (36.0-47.0); HEMOGLOBIN 11.4 g/dL (12.0-15.5); LYMPH # 0.6 x10^3/uL (1.0-4.8); LYMPH % 10 % (24-48); MEAN CORPUSCULAR HEMOGLOBIN 22 pg (25-35); MEAN CORPUSCULAR HGB CONC 29 g/dL (31-37); MEAN CORPUSCULAR VOLUME 74 fL (79-100); MONO # 0.4 x10^3/uL (0.0-1.1); MONO % 7 % (0-9); NEUT # 4.8 x10^3uL (1.8-7.7); NEUT % 80 % (31-73); PLATELET COUNT 517 x10^3/uL (140-400); RED BLOOD COUNT 5.28 x10^6/uL (3.50-5.40); RED CELL DISTRIBUTION WIDTH 27.9 % (11.5-14.5)
[2021-04-01 10:48] LABS: ALBUMIN 3.1 g/dL (3.4-5.0); ALBUMIN/GLOBULIN RATIO 0.8 (1.0-1.7); CALCIUM 8.8 mg/dL (8.5-10.1); CREATININE 0.7 mg/dL (0.6-1.0); GFR 80.7; TOTAL BILIRUBIN 0.8 mg/dL (0.2-1.0); TOTAL PROTEIN 7.1 g/dL (6.4-8.2)
--- NOTE | 2021-04-01 11:13 | NUR ---
Nurse Note Patient alert, disorganized. Patient has been labile and cooperative. Patient complaint with medication. ambulates with walker in hallway and rooms. Patient tearful at times. Patient socializes with staff and other patients.
[2021-04-01 15:55] VITALS: BP 154/69
[2021-04-01] MEDS: RIVAROXABAN 10 MG TABLET. PO SCH (16:46)
[2021-04-01] MEDS: MIRTAZAPINE 15 MG TABLET PO SCH (20:29)
--- NOTE | 2021-04-01 22:00 | PDOC ---
Exam Note: Morgan Note: Please also refer to the separate dictated note~for this date of service dictated separately.~Patient seen individually. Discussed the patient with Nursing staff reviewed the chart.~Reviewed interim history and current functioning. Reviewed vital signs,~Labs/ Radiology~and current medications noted below. Continue current treatment with the changes noted in the dictated addendum note Assessment: Vital Signs/I&O: Vital Signs Date Time Temp Pulse Resp B/P (MAP) Pulse Ox O2 Delivery O2 Flow Rate FiO2 04/01/21 15:55 97.6 96 20 154/69 (97) 96 03/31/21 15:46 Room Air I & O 03/31/21 03/31/21 04/01/21 15:00 23:00 07:00 Intake Total 500 ml 720 ml Balance 500 ml 720 ml Labs: Laboratory Tests Test 04/01/21 09:38 White Blood Count 6.0 x10^3/uL (4.0-11.0) Red Blood Count 5.28 x10^6/uL (3.50-5.40) Hemoglobin 11.4 g/dL (12.0-15.5) L Hematocrit 39.1 % (36.0-47.0) Mean Corpuscular Volume 74 fL (79-100) L Mean Corpuscular Hemoglobin 22 pg (25-35) L Mean Corpuscular Hemoglobin Concent 29 g/dL (31-37) L Red Cell Distribution Width 27.9 % (11.5-14.5) H Platelet Count 517 x10^3/uL (140-400) H Neutrophils (%) (Auto) 80 % (31-73) H Lymphocytes (%) (Auto) 10 % (24-48) L Monocytes (%) (Auto) 7 % (0-9) Eosinophils (%) (Auto) 2 % (0-3) Basophils (%) (Auto) 1 % (0-3) Neutrophils # (Auto) 4.8 x10^3uL (1.8-7.7) Lymphocytes # (Auto) 0.6 x10^3/uL (1.0-4.8) L Monocytes # (Auto) 0.4 x10^3/uL (0.0-1.1) Eosinophils # (Auto) 0.1 x10^3/uL (0.0-0.7) Basophils # (Auto) 0.1 x10^3/uL (0.0-0.2) Sodium Level 142 mmol/L (136-145) Potassium Level 4.0 mmol/L (3.5-5.1) Chloride Level 106 mmol/L (98-107) Carbon Dioxide Level 29 mmol/L (21-32) Anion Gap 7 (6-14) Blood Urea Nitrogen 19 mg/dL (7-20) Creatinine 0.7 mg/dL (0.6-1.0) Estimated GFR (Cockcroft-Gault) 80.7 BUN/Creatinine Ratio 27 (6-20) H Glucose Level 216 mg/dL (70-99) H Calcium Level 8.8 mg/dL (8.5-10.1) Total Bilirubin 0.8 mg/dL (0.2-1.0) Aspartate Amino Transferase (AST) 29 U/L (15-37) Alanine Aminotransferase (ALT) 19 U/L (14-59) Alkaline Phosphatase 201 U/L (46-116) H Total Protein 7.1 g/dL (6.4-8.2) Albumin 3.1 g/dL (3.4-5.0) L Albumin/Globulin Ratio 0.8 (1.0-1.7) L Current Medications: Meds: Laboratory Tests Test 04/01/21 09:38 White Blood Count 6.0 x10^3/uL Red Blood Count 5.28 x10^6/uL Hemoglobin 11.4 g/dL Hematocrit 39.1 % Mean Corpuscular Volume 74 fL Mean Corpuscular Hemoglobin 22 pg Mean Corpuscular Hemoglobin Concent 29 g/dL Red Cell Distribution Width 27.9 % Platelet Count 517 x10^3/uL Neutrophils (%) (Auto) 80 % Lymphocytes (%) (Auto) 10 % Monocytes (%) (Auto) 7 % Eosinophils (%) (Auto) 2 % Basophils (%) (Auto) 1 % Neutrophils # (Auto) 4.8 x10^3uL Lymphocytes # (Auto) 0.6 x10^3/uL Monocytes # (Auto) 0.4 x10^3/uL Eosinophils # (Auto) 0.1 x10^3/uL Basophils # (Auto) 0.1 x10^3/uL Sodium Level 142 mmol/L Potassium Level 4.0 mmol/L Chloride Level 106 mmol/L Carbon Dioxide Level 29 mmol/L Anion Gap 7 Blood Urea Nitrogen 19 mg/dL Creatinine 0.7 mg/dL Estimated GFR (Cockcroft-Gault) 80.7 BUN/Creatinine Ratio 27 Glucose Level 216 mg/dL Calcium Level 8.8 mg/dL Total Bilirubin 0.8 mg/dL Aspartate Amino Transf (AST/SGOT) 29 U/L Alanine Aminotransferase (ALT/SGPT) 19 U/L Alkaline Phosphatase 201 U/L Total Protein 7.1 g/dL Albumin 3.1 g/dL Albumin/Globulin Ratio 0.8 Current Medications Medications (Trade) Dose Ordered Sig/Wing Route PRN Reason Start Time Stop Time Status Last Admin Dose Admin Albuterol Sulfate (Ventolin) 2.5 mg PRN QID PRN IH wheezing 03/17/21 19:45 Furosemide (Lasix) 60 mg DAILY PO 03/18/21 09:00 04/01/21 08:26 Pantoprazole Sodium (Protonix) 40 mg BIDBFRMEAL PO 03/18/21 07:30 04/01/21 16:48 Fenofibrate (Tricor) 145 mg DAILY PO 03/18/21 09:00 04/01/21 08:26 Potassium Chloride (Klor-Con) 30 meq DAILYWBKFT PO 03/18/21 08:00 04/01/21 08:00 Rivaroxaban (Xarelto) 20 mg DAILYWSUP PO 03/17/21 20:00 04/01/21 16:46 Lorazepam (Ativan) 1 mg PRN TID PRN PO ANXIETY / AGITATION 03/17/21 19:45 03/26/21 12:36 DC 03/17/21 20:19 Quetiapine Fumarate (SEROquel) 50 mg DAILYWSUP PO 03/17/21 20:00 03/19/21 11:53 DC 03/18/21 17:15 Sertraline HCl (Zoloft) 200 mg DAILY PO 03/18/21 09:00 03/22/21 19:40 DC 03/22/21 08:42 Temazepam (Restoril) 15 mg PRN QHS PRN PO 2nd choice INSOMNIA 03/17/21 19:45 04/01/21 20:29 DC 03/23/21 22:08 Trazodone HCl (Desyrel) 100 mg HS PO 03/17/21 21:00 03/26/21 12:36 DC 03/25/21 19:59 Acetaminophen (Tylenol) 650 mg PRN Q6HRS PRN PO MILD PAIN / TEMP > 100.3'F 03/17/21 19:45 03/19/21 08:36 Multi-Ingredient Ointment (Analgesic [place]) 1 ravin PRN QID PRN TP MUSCLE PAIN 03/17/21 19:45 Al Hydroxide/Mg Hydroxide (Mylanta Plus Xs) 15 ml PRN AFTMEALHC PRN PO DYSPEPSIA 03/17/21 19:45 Magnesium Hydroxide (Milk Of Magnesia) 2,400 mg PRN QHS PRN PO CONSTIPATION 03/17/21 19:45 Mirtazapine (Remeron) 7.5 mg QHS PO 03/18/21 21:00 03/28/21 18:25 DC 03/27/21 20:05 Olanzapine (ZyPREXA ZYDIS) 2.5 mg PRN Q2HRS PRN PO PSYCHOSIS 03/18/21 10:30 04/01/21 16:44 Vitamin D (Vitamin D3) 50,000 unit WEEKLY PO 03/18/21 18:00 04/01/21 08:25 Ferrous Sulfate (Feosol) 325 mg BIDWMEALS PO 03/18/21 18:00 04/01/21 16:48 Ascorbic Acid (Vitamin C) 500 mg BID PO 03/18/21 21:00 04/01/21 20:29 Vitamin D (Vitamin D3) 50,000 unit WEEKLY PO 03/19/21 09:00 03/18/21 17:45 DC Ferrous Sulfate (Feosol) 325 mg BID PO 03/18/21 21:00 03/18/21 17:45 DC Ascorbic Acid (Vitamin C) 500 mg BID PO 03/18/21 21:00 03/18/21 17:45 DC Quetiapine Fumarate (SEROquel) 25 mg 0900,1300,1700 PO 03/19/21 13:00 03/21/21 16:43 DC 03/21/21 13:27 Quetiapine Fumarate (SEROquel) 37.5 mg 0900,1300,1700 PO 03/21/21 17:00 03/22/21 16:40 DC 03/22/21 12:37 Quetiapine Fumarate (SEROquel) 37.5 mg 1300,1700 PO 03/22/21 17:00 03/24/21 02:09 DC 03/23/21 16:47 Quetiapine Fumarate (SEROquel) 50 mg 0900 PO 03/23/21 09:00 03/26/21 12:36 DC 03/26/21 08:10 Sertraline HCl (Zoloft) 100 mg DAILY PO 03/23/21 09:00 03/24/21 21:11 DC 03/24/21 08:30 Sertraline HCl (Zoloft) 50 mg DAILY PO 03/23/21 09:00 03/24/21 21:11 DC 03/24/21 08:30 Quetiapine Fumarate (SEROquel) 37.5 mg DAILY@1700 PO 03/24/21 17:00 03/26/21 12:36 DC 03/25/21 16:40 Quetiapine Fumarate (SEROquel) 50 mg DAILY@1400 PO 03/24/21 14:00 03/26/21 12:36 DC 03/25/21 13:27 Duloxetine HCl (Cymbalta) 30 mg DAILY PO 03/25/21 09:00 03/27/21 11:00 DC 03/27/21 08:51 Duloxetine HCl (Cymbalta) 60 mg DAILY PO 03/28/21 09:00 04/01/21 08:26 Trazodone HCl (Desyrel) 100 mg PRN QHS PRN PO INSOMNIA 03/26/21 12:30 03/26/21 12:49 DC Trazodone HCl (Desyrel) 50 mg 1X ONCE PO 03/26/21 12:45 03/26/21 12:44 DC Trazodone HCl (Desyrel) 50 mg PRN QHS PRN PO 1ST CHOICE INSOMNIA 03/26/21 13:15 03/26/21 22:33 Aripiprazole (Abilify) 2 mg DAILY PO 03/28/21 09:00 03/30/21 03:17 DC 03/29/21 08:03 Hydrocortisone (Cortaid) 1 ravin BID TP 03/28/21 21:00 04/01/21 20:29 Mirtazapine (Remeron) 15 mg QHS PO 03/28/21 21:00 04/01/21 20:29 Aripiprazole (Abilify) 5 mg DAILY PO 03/30/21 09:00 04/01/21 08:26 I have reviewed the current psychotropics carefully including drug interactions. Risk benefit ratio favors no change other than as noted in my dictated progress note. Diagnosis: Problems: (1) Major depressive disorder, recurrent episode (2) Impulse control disorder, unspecified (3) Anxiety disorder, unspecified (4) Major neurocognitive disorder (5) Dementia, vascular, with depression (6) Dementia, vascular, with delusions KADI YEPEZ MD Apr 01, 2021 22:00
[2021-04-02 05:48] VITALS: BP 142/74
--- NOTE | 2021-04-02 06:36 | PDOC ---
Exam Note: Morgan Note: This note is a late entry for 03/30/2021 covers elements not covered in my initial note. Subjective: The patient was seen face to face in the evening of 03/30/2021 with Ira MONTERO, discussed and reviewed the chart. The patient slept 6-1/4 hours previous night. Patient remains tearful at times, somewhat labile in her mood, perhaps slightly less yelling calling out for her daughter Paula. She is ambulating better on her own with the walker. Review of Systems: No CV, , pulmonary, eye, ENT system symptoms on review. Mental Status Exam: The patient is oriented to herself. Insight and judgment, recent and remote memory, attention and concentration, fund of knowledge is poor consistent with her diagnoses. Laboratory Data: Reviewed. Impression: Major neurocognitive disorder Alzheimer, vascular with delusion, depression, behavioral disturbance. Anxiety disorder unspecified. Impulse control disorder unspecified. Major depressive disorder. Plan: Continue current psychotropics. Assessment: Vital Signs/I&O: Vital Signs Date Time Temp Pulse Resp B/P (MAP) Pulse Ox O2 Delivery O2 Flow Rate FiO2 04/02/21 05:48 97.8 78 16 142/74 (96) 95 Room Air I & O 04/01/21 04/01/21 04/02/21 15:00 23:00 07:00 Intake Total 840 ml 360 ml Balance 840 ml 360 ml Labs: Laboratory Tests Test 04/01/21 09:38 White Blood Count 6.0 x10^3/uL (4.0-11.0) Red Blood Count 5.28 x10^6/uL (3.50-5.40) Hemoglobin 11.4 g/dL (12.0-15.5) L Hematocrit 39.1 % (36.0-47.0) Mean Corpuscular Volume 74 fL (79-100) L Mean Corpuscular Hemoglobin 22 pg (25-35) L Mean Corpuscular Hemoglobin Concent 29 g/dL (31-37) L Red Cell Distribution Width 27.9 % (11.5-14.5) H Platelet Count 517 x10^3/uL (140-400) H Neutrophils (%) (Auto) 80 % (31-73) H Lymphocytes (%) (Auto) 10 % (24-48) L Monocytes (%) (Auto) 7 % (0-9) Eosinophils (%) (Auto) 2 % (0-3) Basophils (%) (Auto) 1 % (0-3) Neutrophils # (Auto) 4.8 x10^3uL (1.8-7.7) Lymphocytes # (Auto) 0.6 x10^3/uL (1.0-4.8) L Monocytes # (Auto) 0.4 x10^3/uL (0.0-1.1) Eosinophils # (Auto) 0.1 x10^3/uL (0.0-0.7) Basophils # (Auto) 0.1 x10^3/uL (0.0-0.2) Sodium Level 142 mmol/L (136-145) Potassium Level 4.0 mmol/L (3.5-5.1) Chloride Level 106 mmol/L (98-107) Carbon Dioxide Level 29 mmol/L (21-32) Anion Gap 7 (6-14) Blood Urea Nitrogen 19 mg/dL (7-20) Creatinine 0.7 mg/dL (0.6-1.0) Estimated GFR (Cockcroft-Gault) 80.7 BUN/Creatinine Ratio 27 (6-20) H Glucose Level 216 mg/dL (70-99) H Calcium Level 8.8 mg/dL (8.5-10.1) Total Bilirubin 0.8 mg/dL (0.2-1.0) Aspartate Amino Transferase (AST) 29 U/L (15-37) Alanine Aminotransferase (ALT) 19 U/L (14-59) Alkaline Phosphatase 201 U/L (46-116) H Total Protein 7.1 g/dL (6.4-8.2) Albumin 3.1 g/dL (3.4-5.0) L Albumin/Globulin Ratio 0.8 (1.0-1.7) L Current Medications: Meds: Laboratory Tests Test 04/01/21 09:38 White Blood Count 6.0 x10^3/uL Red Blood Count 5.28 x10^6/uL Hemoglobin 11.4 g/dL Hematocrit 39.1 % Mean Corpuscular Volume 74 fL Mean Corpuscular Hemoglobin 22 pg Mean Corpuscular Hemoglobin Concent 29 g/dL Red Cell Distribution Width 27.9 % Platelet Count 517 x10^3/uL Neutrophils (%) (Auto) 80 % Lymphocytes (%) (Auto) 10 % Monocytes (%) (Auto) 7 % Eosinophils (%) (Auto) 2 % Basophils (%) (Auto) 1 % Neutrophils # (Auto) 4.8 x10^3uL Lymphocytes # (Auto) 0.6 x10^3/uL Monocytes # (Auto) 0.4 x10^3/uL Eosinophils # (Auto) 0.1 x10^3/uL Basophils # (Auto) 0.1 x10^3/uL Sodium Level 142 mmol/L Potassium Level 4.0 mmol/L Chloride Level 106 mmol/L Carbon Dioxide Level 29 mmol/L Anion Gap 7 Blood Urea Nitrogen 19 mg/dL Creatinine 0.7 mg/dL Estimated GFR (Cockcroft-Gault) 80.7 BUN/Creatinine Ratio 27 Glucose Level 216 mg/dL Calcium Level 8.8 mg/dL Total Bilirubin 0.8 mg/dL Aspartate Amino Transf (AST/SGOT) 29 U/L Alanine Aminotransferase (ALT/SGPT) 19 U/L Alkaline Phosphatase 201 U/L Total Protein 7.1 g/dL Albumin 3.1 g/dL Albumin/Globulin Ratio 0.8 Current Medications Medications (Trade) Dose Ordered Sig/Wing Route PRN Reason Start Time Stop Time Status Last Admin Dose Admin Albuterol Sulfate (Ventolin) 2.5 mg PRN QID PRN IH wheezing 03/17/21 19:45 Furosemide (Lasix) 60 mg DAILY PO 03/18/21 09:00 04/01/21 08:26 Pantoprazole Sodium (Protonix) 40 mg BIDBFRMEAL PO 03/18/21 07:30 04/01/21 16:48 Fenofibrate (Tricor) 145 mg DAILY PO 03/18/21 09:00 04/01/21 08:26 Potassium Chloride (Klor-Con) 30 meq DAILYWBKFT PO 03/18/21 08:00 04/01/21 08:00 Rivaroxaban (Xarelto) 20 mg DAILYWSUP PO 03/17/21 20:00 04/01/21 16:46 Lorazepam (Ativan) 1 mg PRN TID PRN PO ANXIETY / AGITATION 03/17/21 19:45 03/26/21 12:36 DC 03/17/21 20:19 Quetiapine Fumarate (SEROquel) 50 mg DAILYWSUP PO 03/17/21 20:00 03/19/21 11:53 DC 03/18/21 17:15 Sertraline HCl (Zoloft) 200 mg DAILY PO 03/18/21 09:00 03/22/21 19:40 DC 03/22/21 08:42 Temazepam (Restoril) 15 mg PRN QHS PRN PO 2nd choice INSOMNIA 03/17/21 19:45 04/01/21 20:29 DC 03/23/21 22:08 Trazodone HCl (Desyrel) 100 mg HS PO 03/17/21 21:00 03/26/21 12:36 DC 03/25/21 19:59 Acetaminophen (Tylenol) 650 mg PRN Q6HRS PRN PO MILD PAIN / TEMP > 100.3'F 03/17/21 19:45 03/19/21 08:36 Multi-Ingredient Ointment (Analgesic [place]) 1 ravin PRN QID PRN TP MUSCLE PAIN 03/17/21 19:45 Al Hydroxide/Mg Hydroxide (Mylanta Plus Xs) 15 ml PRN AFTMEALHC PRN PO DYSPEPSIA 03/17/21 19:45 Magnesium Hydroxide (Milk Of Magnesia) 2,400 mg PRN QHS PRN PO CONSTIPATION 03/17/21 19:45 Mirtazapine (Remeron) 7.5 mg QHS PO 03/18/21 21:00 03/28/21 18:25 DC 03/27/21 20:05 Olanzapine (ZyPREXA ZYDIS) 2.5 mg PRN Q2HRS PRN PO PSYCHOSIS 03/18/21 10:30 04/01/21 16:44 Vitamin D (Vitamin D3) 50,000 unit WEEKLY PO 03/18/21 18:00 04/01/21 08:25 Ferrous Sulfate (Feosol) 325 mg BIDWMEALS PO 03/18/21 18:00 04/01/21 16:48 Ascorbic Acid (Vitamin C) 500 mg BID PO 03/18/21 21:00 04/01/21 20:29 Vitamin D (Vitamin D3) 50,000 unit WEEKLY PO 03/19/21 09:00 03/18/21 17:45 DC Ferrous Sulfate (Feosol) 325 mg BID PO 03/18/21 21:00 03/18/21 17:45 DC Ascorbic Acid (Vitamin C) 500 mg BID PO 03/18/21 21:00 03/18/21 17:45 DC Quetiapine Fumarate (SEROquel) 25 mg 0900,1300,1700 PO 03/19/21 13:00 03/21/21 16:43 DC 03/21/21 13:27 Quetiapine Fumarate (SEROquel) 37.5 mg 0900,1300,1700 PO 03/21/21 17:00 03/22/21 16:40 DC 03/22/21 12:37 Quetiapine Fumarate (SEROquel) 37.5 mg 1300,1700 PO 03/22/21 17:00 03/24/21 02:09 DC 03/23/21 16:47 Quetiapine Fumarate (SEROquel) 50 mg 0900 PO 03/23/21 09:00 03/26/21 12:36 DC 03/26/21 08:10 Sertraline HCl (Zoloft) 100 mg DAILY PO 03/23/21 09:00 03/24/21 21:11 DC 03/24/21 08:30 Sertraline HCl (Zoloft) 50 mg DAILY PO 03/23/21 09:00 03/24/21 21:11 DC 03/24/21 08:30 Quetiapine Fumarate (SEROquel) 37.5 mg DAILY@1700 PO 03/24/21 17:00 03/26/21 12:36 DC 03/25/21 16:40 Quetiapine Fumarate (SEROquel) 50 mg DAILY@1400 PO 03/24/21 14:00 03/26/21 12:36 DC 03/25/21 13:27 Duloxetine HCl (Cymbalta) 30 mg DAILY PO 03/25/21 09:00 03/27/21 11:00 DC 03/27/21 08:51 Duloxetine HCl (Cymbalta) 60 mg DAILY PO 03/28/21 09:00 04/01/21 08:26 Trazodone HCl (Desyrel) 100 mg PRN QHS PRN PO INSOMNIA 03/26/21 12:30 03/26/21 12:49 DC Trazodone HCl (Desyrel) 50 mg 1X ONCE PO 03/26/21 12:45 03/26/21 12:44 DC Trazodone HCl (Desyrel) 50 mg PRN QHS PRN PO 1ST CHOICE INSOMNIA 03/26/21 13:15 03/26/21 22:33 Aripiprazole (Abilify) 2 mg DAILY PO 03/28/21 09:00 03/30/21 03:17 DC 03/29/21 08:03 Hydrocortisone (Cortaid) 1 ravin BID TP 03/28/21 21:00 04/01/21 20:29 Mirtazapine (Remeron) 15 mg QHS PO 03/28/21 21:00 04/01/21 20:29 Aripiprazole (Abilify) 5 mg DAILY PO 03/30/21 09:00 04/01/21 08:26 I have reviewed the current psychotropics carefully including drug interactions. Risk benefit ratio favors no change other than as noted in my dictated progress note. Diagnosis: Problems: (1) Major depressive disorder, recurrent episode (2) Impulse control disorder, unspecified (3) Anxiety disorder, unspecified (4) Major neurocognitive disorder (5) Dementia, vascular, with depression (6) Dementia, vascular, with delusions KADI YEPEZ MD Apr 02, 2021 06:36
--- NOTE | 2021-04-02 06:52 | PDOC ---
Exam Note: Morgan Note: This note is a late entry for 03/31/2021 covers elements not covered in my initial note. Subjective: The patient was seen face to face in the evening of 03/31/2021 with Ira MONTERO, discussed and reviewed the chart. The patient slept 7-1/2 hours previous night. Patient was very cooperative with the showers in the evening, not tearful during showers, though she was tearful in the morning. Review of Systems: She does ambulate with the walker but gait is much better since we stopped the Seroquel. No CV, , pulmonary, eye, ENT system symptoms on review. Mental Status Exam: The patient is oriented to herself. Insight and judgment, recent and remote memory, attention and concentration, fund of knowledge is poor consistent with her diagnoses. Laboratory Data: Reviewed. Impression: Major neurocognitive disorder Alzheimer, vascular with delusion, depression, behavioral disturbance. Anxiety disorder unspecified. Impulse control disorder unspecified. Major depressive disorder. Plan: Continue current psychotropics. Assessment: Vital Signs/I&O: Vital Signs Date Time Temp Pulse Resp B/P (MAP) Pulse Ox O2 Delivery O2 Flow Rate FiO2 04/02/21 05:48 97.8 78 16 142/74 (96) 95 Room Air I & O 04/01/21 04/01/21 04/02/21 15:00 23:00 07:00 Intake Total 840 ml 360 ml Balance 840 ml 360 ml Labs: Laboratory Tests Test 04/01/21 09:38 White Blood Count 6.0 x10^3/uL (4.0-11.0) Red Blood Count 5.28 x10^6/uL (3.50-5.40) Hemoglobin 11.4 g/dL (12.0-15.5) L Hematocrit 39.1 % (36.0-47.0) Mean Corpuscular Volume 74 fL (79-100) L Mean Corpuscular Hemoglobin 22 pg (25-35) L Mean Corpuscular Hemoglobin Concent 29 g/dL (31-37) L Red Cell Distribution Width 27.9 % (11.5-14.5) H Platelet Count 517 x10^3/uL (140-400) H Neutrophils (%) (Auto) 80 % (31-73) H Lymphocytes (%) (Auto) 10 % (24-48) L Monocytes (%) (Auto) 7 % (0-9) Eosinophils (%) (Auto) 2 % (0-3) Basophils (%) (Auto) 1 % (0-3) Neutrophils # (Auto) 4.8 x10^3uL (1.8-7.7) Lymphocytes # (Auto) 0.6 x10^3/uL (1.0-4.8) L Monocytes # (Auto) 0.4 x10^3/uL (0.0-1.1) Eosinophils # (Auto) 0.1 x10^3/uL (0.0-0.7) Basophils # (Auto) 0.1 x10^3/uL (0.0-0.2) Sodium Level 142 mmol/L (136-145) Potassium Level 4.0 mmol/L (3.5-5.1) Chloride Level 106 mmol/L (98-107) Carbon Dioxide Level 29 mmol/L (21-32) Anion Gap 7 (6-14) Blood Urea Nitrogen 19 mg/dL (7-20) Creatinine 0.7 mg/dL (0.6-1.0) Estimated GFR (Cockcroft-Gault) 80.7 BUN/Creatinine Ratio 27 (6-20) H Glucose Level 216 mg/dL (70-99) H Calcium Level 8.8 mg/dL (8.5-10.1) Total Bilirubin 0.8 mg/dL (0.2-1.0) Aspartate Amino Transferase (AST) 29 U/L (15-37) Alanine Aminotransferase (ALT) 19 U/L (14-59) Alkaline Phosphatase 201 U/L (46-116) H Total Protein 7.1 g/dL (6.4-8.2) Albumin 3.1 g/dL (3.4-5.0) L Albumin/Globulin Ratio 0.8 (1.0-1.7) L Current Medications: Meds: Laboratory Tests Test 04/01/21 09:38 White Blood Count 6.0 x10^3/uL Red Blood Count 5.28 x10^6/uL Hemoglobin 11.4 g/dL Hematocrit 39.1 % Mean Corpuscular Volume 74 fL Mean Corpuscular Hemoglobin 22 pg Mean Corpuscular Hemoglobin Concent 29 g/dL Red Cell Distribution Width 27.9 % Platelet Count 517 x10^3/uL Neutrophils (%) (Auto) 80 % Lymphocytes (%) (Auto) 10 % Monocytes (%) (Auto) 7 % Eosinophils (%) (Auto) 2 % Basophils (%) (Auto) 1 % Neutrophils # (Auto) 4.8 x10^3uL Lymphocytes # (Auto) 0.6 x10^3/uL Monocytes # (Auto) 0.4 x10^3/uL Eosinophils # (Auto) 0.1 x10^3/uL Basophils # (Auto) 0.1 x10^3/uL Sodium Level 142 mmol/L Potassium Level 4.0 mmol/L Chloride Level 106 mmol/L Carbon Dioxide Level 29 mmol/L Anion Gap 7 Blood Urea Nitrogen 19 mg/dL Creatinine 0.7 mg/dL Estimated GFR (Cockcroft-Gault) 80.7 BUN/Creatinine Ratio 27 Glucose Level 216 mg/dL Calcium Level 8.8 mg/dL Total Bilirubin 0.8 mg/dL Aspartate Amino Transf (AST/SGOT) 29 U/L Alanine Aminotransferase (ALT/SGPT) 19 U/L Alkaline Phosphatase 201 U/L Total Protein 7.1 g/dL Albumin 3.1 g/dL Albumin/Globulin Ratio 0.8 Current Medications Medications (Trade) Dose Ordered Sig/Wing Route PRN Reason Start Time Stop Time Status Last Admin Dose Admin Albuterol Sulfate (Ventolin) 2.5 mg PRN QID PRN IH wheezing 03/17/21 19:45 Furosemide (Lasix) 60 mg DAILY PO 03/18/21 09:00 04/01/21 08:26 Pantoprazole Sodium (Protonix) 40 mg BIDBFRMEAL PO 03/18/21 07:30 04/01/21 16:48 Fenofibrate (Tricor) 145 mg DAILY PO 03/18/21 09:00 04/01/21 08:26 Potassium Chloride (Klor-Con) 30 meq DAILYWBKFT PO 03/18/21 08:00 04/01/21 08:00 Rivaroxaban (Xarelto) 20 mg DAILYWSUP PO 03/17/21 20:00 04/01/21 16:46 Lorazepam (Ativan) 1 mg PRN TID PRN PO ANXIETY / AGITATION 03/17/21 19:45 03/26/21 12:36 DC 03/17/21 20:19 Quetiapine Fumarate (SEROquel) 50 mg DAILYWSUP PO 03/17/21 20:00 03/19/21 11:53 DC 03/18/21 17:15 Sertraline HCl (Zoloft) 200 mg DAILY PO 03/18/21 09:00 03/22/21 19:40 DC 03/22/21 08:42 Temazepam (Restoril) 15 mg PRN QHS PRN PO 2nd choice INSOMNIA 03/17/21 19:45 04/01/21 20:29 DC 03/23/21 22:08 Trazodone HCl (Desyrel) 100 mg HS PO 03/17/21 21:00 03/26/21 12:36 DC 03/25/21 19:59 Acetaminophen (Tylenol) 650 mg PRN Q6HRS PRN PO MILD PAIN / TEMP > 100.3'F 03/17/21 19:45 03/19/21 08:36 Multi-Ingredient Ointment (Analgesic [place]) 1 ravin PRN QID PRN TP MUSCLE PAIN 03/17/21 19:45 Al Hydroxide/Mg Hydroxide (Mylanta Plus Xs) 15 ml PRN AFTMEALHC PRN PO DYSPEPSIA 03/17/21 19:45 Magnesium Hydroxide (Milk Of Magnesia) 2,400 mg PRN QHS PRN PO CONSTIPATION 03/17/21 19:45 Mirtazapine (Remeron) 7.5 mg QHS PO 03/18/21 21:00 03/28/21 18:25 DC 03/27/21 20:05 Olanzapine (ZyPREXA ZYDIS) 2.5 mg PRN Q2HRS PRN PO PSYCHOSIS 03/18/21 10:30 04/01/21 16:44 Vitamin D (Vitamin D3) 50,000 unit WEEKLY PO 03/18/21 18:00 04/01/21 08:25 Ferrous Sulfate (Feosol) 325 mg BIDWMEALS PO 03/18/21 18:00 04/01/21 16:48 Ascorbic Acid (Vitamin C) 500 mg BID PO 03/18/21 21:00 04/01/21 20:29 Vitamin D (Vitamin D3) 50,000 unit WEEKLY PO 03/19/21 09:00 03/18/21 17:45 DC Ferrous Sulfate (Feosol) 325 mg BID PO 03/18/21 21:00 03/18/21 17:45 DC Ascorbic Acid (Vitamin C) 500 mg BID PO 03/18/21 21:00 03/18/21 17:45 DC Quetiapine Fumarate (SEROquel) 25 mg 0900,1300,1700 PO 03/19/21 13:00 03/21/21 16:43 DC 03/21/21 13:27 Quetiapine Fumarate (SEROquel) 37.5 mg 0900,1300,1700 PO 03/21/21 17:00 03/22/21 16:40 DC 03/22/21 12:37 Quetiapine Fumarate (SEROquel) 37.5 mg 1300,1700 PO 03/22/21 17:00 03/24/21 02:09 DC 03/23/21 16:47 Quetiapine Fumarate (SEROquel) 50 mg 0900 PO 03/23/21 09:00 03/26/21 12:36 DC 03/26/21 08:10 Sertraline HCl (Zoloft) 100 mg DAILY PO 03/23/21 09:00 03/24/21 21:11 DC 03/24/21 08:30 Sertraline HCl (Zoloft) 50 mg DAILY PO 03/23/21 09:00 03/24/21 21:11 DC 03/24/21 08:30 Quetiapine Fumarate (SEROquel) 37.5 mg DAILY@1700 PO 03/24/21 17:00 03/26/21 12:36 DC 03/25/21 16:40 Quetiapine Fumarate (SEROquel) 50 mg DAILY@1400 PO 03/24/21 14:00 03/26/21 12:36 DC 03/25/21 13:27 Duloxetine HCl (Cymbalta) 30 mg DAILY PO 03/25/21 09:00 03/27/21 11:00 DC 03/27/21 08:51 Duloxetine HCl (Cymbalta) 60 mg DAILY PO 03/28/21 09:00 04/01/21 08:26 Trazodone HCl (Desyrel) 100 mg PRN QHS PRN PO INSOMNIA 03/26/21 12:30 03/26/21 12:49 DC Trazodone HCl (Desyrel) 50 mg 1X ONCE PO 03/26/21 12:45 03/26/21 12:44 DC Trazodone HCl (Desyrel) 50 mg PRN QHS PRN PO 1ST CHOICE INSOMNIA 03/26/21 13:15 03/26/21 22:33 Aripiprazole (Abilify) 2 mg DAILY PO 03/28/21 09:00 03/30/21 03:17 DC 03/29/21 08:03 Hydrocortisone (Cortaid) 1 ravin BID TP 03/28/21 21:00 04/01/21 20:29 Mirtazapine (Remeron) 15 mg QHS PO 03/28/21 21:00 04/01/21 20:29 Aripiprazole (Abilify) 5 mg DAILY PO 03/30/21 09:00 04/01/21 08:26 I have reviewed the current psychotropics carefully including drug interactions. Risk benefit ratio favors no change other than as noted in my dictated progress note. Diagnosis: Problems: (1) Major depressive disorder, recurrent episode (2) Impulse control disorder, unspecified (3) Anxiety disorder, unspecified (4) Major neurocognitive disorder (5) Dementia, vascular, with depression (6) Dementia, vascular, with delusions KADI YEPEZ MD Apr 02, 2021 06:52
[2021-04-02] MEDS: POTASSIUM CHLORIDE 10 MEQ TABLET.ER. PO SCH (08:00)
[2021-04-02] MEDS: ARIPiprazole 5 MG TABLET PO SCH (08:13)
[2021-04-02] MEDS: FENOFIBRATE NANOCRYSTALLIZED 145 MG TABLET PO SCH (08:13)
[2021-04-02] MEDS: DULoxetine HCL 60 MG CAPSULE.DR PO SCH (08:13)
[2021-04-02] MEDS: FERROUS SULFATE 325 MG TABLET. PO SCH ×2 (08:14→17:13)
[2021-04-02] MEDS: FUROSEMIDE 20 MG TABLET PO SCH (08:14)
[2021-04-02] MEDS: ASCORBIC ACID 500 MG TABLET PO SCH ×2 (08:14→20:43)
[2021-04-02] MEDS: PANTOPRAZOLE 40 MG TABLET. PO SCH ×2 (08:14→17:13)
[2021-04-02] MEDS: HYDROCORTISONE 1% TOPICAL OINTMENT 30GM TUBE. TP SCH ×2 (08:15→20:43)
--- NOTE | 2021-04-02 12:50 | NUR ---
WEEKLY ACTIVITY THERAPY NOTE Date of Admission:03/17/21 Date of AT Assessment: 03/20 Precipitating behaviors that initiated intake and admission: delusional- thinks she is going [place], insomnia, anxiety, yelling out, screaming, scared, expressing that she wants to , disruptive to others in the longterm community. Family reports pt had a traumatic experience in a detention within the past month. Family feels pt may be having PTSD from that experience. Goal aimed: increase time management and relaxation skills Initial Goal: Pt will participate in at least five individual or group Activity Therapy sessions before discharge Weekly progress towards goal: achieved (03/19-meet the needs, 03/19-choose your own leisure, 03/22-snacks and drinks, 03/26- tea requested, 03/28-exercises, 03/28- music and headphones, 03/29-few exercises Group participation level: 1 full, 3 min Weekly highlights: achieved goal this week Behaviors observed: tearful, distracted and restless on , redirected well with leisure materials Plan: change goal to: Pt. will participate in at least five individual or Activity Therapy groups per week Beneficial adaptations:
--- NOTE | 2021-04-02 14:41 | NUR ---
Pt has been medication compliant, cooperative, and calm. She has been slightly tearful throughout the day when she is not engaging with other pts or staff. Pt has been quiet and sat in the chair in the hallway for most of the day. She has a possible discharge date of Friday the if she continues to remain at her baseline.
--- NOTE | 2021-04-02 14:42 | TX PLAN ---
Interdisciplinary Tx Plan Admission Information Mar 17, 2021 at 17:51 Legal Status (on Admission): Voluntary, DPOA DPOA/Guardian Name: Paula San Contact Other Contact Name: Christa- Other Contact Phone: [phone] Verified Code Status: DNR Allergies: Coded Allergies: Penicillins (Verified Allergy, Unknown, Unknown, 03/17/21) erythromycin base (Verified Allergy, Unknown, Unknown, 03/17/21) Estimated Length of Stay: 14 Diagnoses Primary Diagnosis: MDD; dementia Reasons for Admission: Delusions, Sig. Change Sleep, Anxiety/Panic, Suicidal ideation, Confusion/Disoriented Problem in Patient's Words: As above Additional Admission Comments: Per intake record, insomnia, anxious, screaming out, believes she is going to be left in a cornfield, frightened/scared, expresses she wants to , delusional and asks to be gotten out of the corn field, disruptive to the [facility] community in which she is living. Problems Active Problems: Delusional insomnia anxious screaming out frightened/scared that she's going to be left in a corn field expresses she wats to disruptive to the [facility] community in which she lives Inactive Problems: Intakes are averaging 50% Pt Strengths/Limitations Ability for [place]: Fair Cognitive Functioning/Ability: Fair Communication Skills/Ability: Fair Financial Resources: Fair Insight/Judgement: Fair Intellectual Ability: Fair Physical Health: Fair Social Skills: Fair Stability in Family: Good Verbal Skills: Fair Discharge Criteria Discharge Criteria: Able meet basic life need, Able to meet health needs, Adequate arrangements @DC, Adequate self-care, Improved mood/thought Preliminary Discharge Plan Preliminary DC Plan: Home Other Arrangements: Independent apartment at [facility] Special Precautions Special Precautions: Suicide Risk Fall Risk: High Initial D/C Plan Independent [facility] apartment vs. higher level of care Identified Discharge Needs: Return to independent apartment at [facility] vs. placement for increased support with care needs Currently Utilized Resources Currently Utilized Resources/P: PCP Out patient psychciatry Identified Problems/Hx/Goals Objectives/Short-Term Goals Short Term Goals: Control abnormal behavior, Dec. Anxiety/Panic, Dec. Outb ursts, Dec. Symp. Depression, Medication Stabilization, Monitor Med Effects, Promote Coping Skill Short Term Goals in Patient's: Per Danica, "I want to go home." Interventions/Frequency Staff Interventions/Frequency&: Nursing to provide routine safety checks, medication administration, and adl support. Psychiatry to see three times weekly. SW to see twice weekly. Recreational activites as Danica desires. PT/OT eval and treat as indicated. 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 Social: Seun has enjoyed bowling, confucianist involvment, cooking, and gardening. Education: Danica graduated high school. Community Follow-up PCP Out patient psychiatry Community Provider/Family Inpu: Team meeting was held on 03/19/21, data entry coordinator of treamtent plan was completed on 03/20/21. Treatment Plan Explained Patient/Insurance Loss Control Surveyor had this treatment plan explained to him/her as indicated by the signature below and has been given the opportunity to ask questions and make suggestions: Date: Patient/Insurance Loss Control Surveyor Signature: Status Update Update WEEKLY NOTE/UPDATE: Danica is averaging 75% of meal intakes and six hours of sleep at night. While she is still tearful at times and will cry out for Paula, it is happening less frequently and for shorter durations. Paula, daughter/POA, was involved in team meeting via phone this date. Dr. Pollard provided education on the diagnosis pseudobulbar affect and Danica is currently on Abilify for treatment. Danica has been involved in more recreational therapy groups but tends to be easily distracted and has difficulty concentrating. Danica ambulates with a walker about the unit. Tentative d/c date of 04/07/21. SW will send current notes, medication list, and labs to Christa nurse at [facility], to review and coordinate upcoming discharge. MICHAEL LUCIA Apr 02, 2021 14:42
[2021-04-02] MEDS ORDERED: DEXTROSE 50% 25 GM / 50ML DISP.SYRIN. IV PRN (16:00)
[2021-04-02 16:29] VITALS: BP 128/70
[2021-04-02] MEDS: RIVAROXABAN 10 MG TABLET. PO SCH (17:13)
[2021-04-02] MEDS: MIRTAZAPINE 15 MG TABLET PO SCH (20:43)
--- NOTE | 2021-04-02 22:02 | PDOC ---
Exam Note: Morgan Note: Please also refer to the separate dictated note~for this date of service dictated separately.~Patient seen individually. Discussed the patient with Nursing staff reviewed the chart.~Reviewed interim history and current functioning. Reviewed vital signs,~Labs/ Radiology~and current medications noted below. Continue current treatment with the changes noted in the dictated addendum note Assessment: Vital Signs/I&O: Vital Signs Date Time Temp Pulse Resp B/P (MAP) Pulse Ox O2 Delivery O2 Flow Rate FiO2 04/02/21 16:29 97.1 85 18 128/70 (89) 93 04/02/21 05:48 Room Air I & O 04/01/21 04/01/21 04/02/21 15:00 23:00 07:00 Intake Total 840 ml 360 ml Balance 840 ml 360 ml Labs: Laboratory Tests Test 04/02/21 16:29 04/02/21 19:11 Glucose (Fingerstick) 135 mg/dL (70-99) H 195 mg/dL (70-99) H Current Medications: Meds: Laboratory Tests Test 04/02/21 16:29 04/02/21 19:11 Glucose (Fingerstick) 135 mg/dL 195 mg/dL Current Medications Medications (Trade) Dose Ordered Sig/Wing Route PRN Reason Start Time Stop Time Status Last Admin Dose Admin Albuterol Sulfate (Ventolin) 2.5 mg PRN QID PRN IH wheezing 03/17/21 19:45 Furosemide (Lasix) 60 mg DAILY PO 03/18/21 09:00 04/02/21 08:14 Pantoprazole Sodium (Protonix) 40 mg BIDBFRMEAL PO 03/18/21 07:30 04/02/21 17:13 Fenofibrate (Tricor) 145 mg DAILY PO 03/18/21 09:00 04/02/21 08:13 Potassium Chloride (Klor-Con) 30 meq DAILYWBKFT PO 03/18/21 08:00 04/02/21 08:00 Rivaroxaban (Xarelto) 20 mg DAILYWSUP PO 03/17/21 20:00 04/02/21 17:13 Lorazepam (Ativan) 1 mg PRN TID PRN PO ANXIETY / AGITATION 03/17/21 19:45 03/26/21 12:36 DC 03/17/21 20:19 Quetiapine Fumarate (SEROquel) 50 mg DAILYWSUP PO 03/17/21 20:00 03/19/21 11:53 DC 03/18/21 17:15 Sertraline HCl (Zoloft) 200 mg DAILY PO 03/18/21 09:00 03/22/21 19:40 DC 03/22/21 08:42 Temazepam (Restoril) 15 mg PRN QHS PRN PO 2nd choice INSOMNIA 03/17/21 19:45 04/01/21 20:29 DC 03/23/21 22:08 Trazodone HCl (Desyrel) 100 mg HS PO 03/17/21 21:00 03/26/21 12:36 DC 03/25/21 19:59 Acetaminophen (Tylenol) 650 mg PRN Q6HRS PRN PO MILD PAIN / TEMP > 100.3'F 03/17/21 19:45 03/19/21 08:36 Multi-Ingredient Ointment (Analgesic [place]) 1 ravin PRN QID PRN TP MUSCLE PAIN 03/17/21 19:45 Al Hydroxide/Mg Hydroxide (Mylanta Plus Xs) 15 ml PRN AFTMEALHC PRN PO DYSPEPSIA 03/17/21 19:45 Magnesium Hydroxide (Milk Of Magnesia) 2,400 mg PRN QHS PRN PO CONSTIPATION 03/17/21 19:45 Mirtazapine (Remeron) 7.5 mg QHS PO 03/18/21 21:00 03/28/21 18:25 DC 03/27/21 20:05 Olanzapine (ZyPREXA ZYDIS) 2.5 mg PRN Q2HRS PRN PO PSYCHOSIS 03/18/21 10:30 04/01/21 16:44 Vitamin D (Vitamin D3) 50,000 unit WEEKLY PO 03/18/21 18:00 04/01/21 08:25 Ferrous Sulfate (Feosol) 325 mg BIDWMEALS PO 03/18/21 18:00 04/02/21 17:13 Ascorbic Acid (Vitamin C) 500 mg BID PO 03/18/21 21:00 04/02/21 20:43 Vitamin D (Vitamin D3) 50,000 unit WEEKLY PO 03/19/21 09:00 03/18/21 17:45 DC Ferrous Sulfate (Feosol) 325 mg BID PO 03/18/21 21:00 03/18/21 17:45 DC Ascorbic Acid (Vitamin C) 500 mg BID PO 03/18/21 21:00 03/18/21 17:45 DC Quetiapine Fumarate (SEROquel) 25 mg 0900,1300,1700 PO 03/19/21 13:00 03/21/21 16:43 DC 03/21/21 13:27 Quetiapine Fumarate (SEROquel) 37.5 mg 0900,1300,1700 PO 03/21/21 17:00 03/22/21 16:40 DC 03/22/21 12:37 Quetiapine Fumarate (SEROquel) 37.5 mg 1300,1700 PO 03/22/21 17:00 03/24/21 02:09 DC 03/23/21 16:47 Quetiapine Fumarate (SEROquel) 50 mg 0900 PO 03/23/21 09:00 03/26/21 12:36 DC 03/26/21 08:10 Sertraline HCl (Zoloft) 100 mg DAILY PO 03/23/21 09:00 03/24/21 21:11 DC 03/24/21 08:30 Sertraline HCl (Zoloft) 50 mg DAILY PO 03/23/21 09:00 03/24/21 21:11 DC 03/24/21 08:30 Quetiapine Fumarate (SEROquel) 37.5 mg DAILY@1700 PO 03/24/21 17:00 03/26/21 12:36 DC 03/25/21 16:40 Quetiapine Fumarate (SEROquel) 50 mg DAILY@1400 PO 03/24/21 14:00 03/26/21 12:36 DC 03/25/21 13:27 Duloxetine HCl (Cymbalta) 30 mg DAILY PO 03/25/21 09:00 03/27/21 11:00 DC 03/27/21 08:51 Duloxetine HCl (Cymbalta) 60 mg DAILY PO 03/28/21 09:00 04/02/21 08:13 Trazodone HCl (Desyrel) 100 mg PRN QHS PRN PO INSOMNIA 03/26/21 12:30 03/26/21 12:49 DC Trazodone HCl (Desyrel) 50 mg 1X ONCE PO 03/26/21 12:45 03/26/21 12:44 DC Trazodone HCl (Desyrel) 50 mg PRN QHS PRN PO 1ST CHOICE INSOMNIA 03/26/21 13:15 03/26/21 22:33 Aripiprazole (Abilify) 2 mg DAILY PO 03/28/21 09:00 03/30/21 03:17 DC 03/29/21 08:03 Hydrocortisone (Cortaid) 1 ravin BID TP 03/28/21 21:00 04/02/21 20:43 Mirtazapine (Remeron) 15 mg QHS PO 03/28/21 21:00 04/02/21 20:43 Aripiprazole (Abilify) 5 mg DAILY PO 03/30/21 09:00 04/02/21 08:13 Dextrose (Dextrose 50%-Water Syringe) 12.5 gm PRN Q15MIN PRN IV SEE COMMENTS 04/02/21 16:00 I have reviewed the current psychotropics carefully including drug interactions. Risk benefit ratio favors no change other than as noted in my dictated progress note. Diagnosis: Problems: (1) Major depressive disorder, recurrent episode (2) Impulse control disorder, unspecified (3) Anxiety disorder, unspecified (4) Major neurocognitive disorder (5) Dementia, vascular, with depression (6) Dementia, vascular, with delusions KADI YEPEZ MD Apr 02, 2021 22:02
--- NOTE | 2021-04-03 03:54 | NUR ---
Last evening pt sat in the hallway with peers and was in good spirits until someone mentioned Paula. After that she became tearful and said her family doesn't want her and things like that until going to bed. She was cooperative with care and has been sleeping well.
[2021-04-03 05:33] VITALS: BP 140/66
[2021-04-03] MEDS: POTASSIUM CHLORIDE 10 MEQ TABLET.ER. PO SCH (08:00)
[2021-04-03] MEDS: PANTOPRAZOLE 40 MG TABLET. PO SCH ×2 (08:13→17:09)
[2021-04-03] MEDS: DULoxetine HCL 60 MG CAPSULE.DR PO SCH (08:14)
[2021-04-03] MEDS: ARIPiprazole 5 MG TABLET PO SCH (08:14)
[2021-04-03] MEDS: FERROUS SULFATE 325 MG TABLET. PO SCH ×2 (08:14→17:09)
[2021-04-03] MEDS: FUROSEMIDE 20 MG TABLET PO SCH (08:15)
[2021-04-03] MEDS: ASCORBIC ACID 500 MG TABLET PO SCH ×2 (08:15→20:03)
[2021-04-03] MEDS: FENOFIBRATE NANOCRYSTALLIZED 145 MG TABLET PO SCH (08:15)
[2021-04-03] MEDS: HYDROCORTISONE 1% TOPICAL OINTMENT 30GM TUBE. TP SCH ×2 (08:17→20:03)
--- NOTE | 2021-04-03 11:48 | NUR ---
Faxed current notes, medication list and labs to Christa, nurse at [facility], for review in preparation for upcoming d/c on 04/07/21. Requested return phone call from Christa to confirm she received the faxed update.
[2021-04-03 15:50] VITALS: BP 123/67
[2021-04-03] MEDS: RIVAROXABAN 10 MG TABLET. PO SCH (17:09)
[2021-04-03] MEDS: MIRTAZAPINE 15 MG TABLET PO SCH (20:03)
--- NOTE | 2021-04-03 21:59 | PDOC ---
Exam Note: Morgan Note: Please also refer to the separate dictated note~for this date of service dictated separately.~Patient seen individually. Discussed the patient with Nursing staff reviewed the chart.~Reviewed interim history and current functioning. Reviewed vital signs,~Labs/ Radiology~and current medications noted below. Continue current treatment with the changes noted in the dictated addendum note Assessment: Vital Signs/I&O: Vital Signs Date Time Temp Pulse Resp B/P (MAP) Pulse Ox O2 Delivery O2 Flow Rate FiO2 04/03/21 15:50 97.5 85 16 123/67 (85) 94 04/02/21 05:48 Room Air I & O 04/02/21 04/02/21 04/03/21 15:00 23:00 07:00 Intake Total 720 ml 720 ml Balance 720 ml 720 ml Labs: Laboratory Tests Test 04/03/21 07:24 04/03/21 11:29 Glucose (Fingerstick) 218 mg/dL (70-99) H 118 mg/dL (70-99) H Current Medications: Meds: Laboratory Tests Test 04/03/21 07:24 04/03/21 11:29 Glucose (Fingerstick) 218 mg/dL 118 mg/dL Current Medications Medications (Trade) Dose Ordered Sig/Wing Route PRN Reason Start Time Stop Time Status Last Admin Dose Admin Albuterol Sulfate (Ventolin) 2.5 mg PRN QID PRN IH wheezing 03/17/21 19:45 Furosemide (Lasix) 60 mg DAILY PO 03/18/21 09:00 04/03/21 08:15 Pantoprazole Sodium (Protonix) 40 mg BIDBFRMEAL PO 03/18/21 07:30 04/03/21 17:09 Fenofibrate (Tricor) 145 mg DAILY PO 03/18/21 09:00 04/03/21 08:15 Potassium Chloride (Klor-Con) 30 meq DAILYWBKFT PO 03/18/21 08:00 04/03/21 08:00 Rivaroxaban (Xarelto) 20 mg DAILYWSUP PO 03/17/21 20:00 04/03/21 17:09 Lorazepam (Ativan) 1 mg PRN TID PRN PO ANXIETY / AGITATION 03/17/21 19:45 03/26/21 12:36 DC 03/17/21 20:19 Quetiapine Fumarate (SEROquel) 50 mg DAILYWSUP PO 03/17/21 20:00 03/19/21 11:53 DC 03/18/21 17:15 Sertraline HCl (Zoloft) 200 mg DAILY PO 03/18/21 09:00 03/22/21 19:40 DC 03/22/21 08:42 Temazepam (Restoril) 15 mg PRN QHS PRN PO 2nd choice INSOMNIA 03/17/21 19:45 04/01/21 20:29 DC 03/23/21 22:08 Trazodone HCl (Desyrel) 100 mg HS PO 03/17/21 21:00 03/26/21 12:36 DC 03/25/21 19:59 Acetaminophen (Tylenol) 650 mg PRN Q6HRS PRN PO MILD PAIN / TEMP > 100.3'F 03/17/21 19:45 03/19/21 08:36 Multi-Ingredient Ointment (Analgesic [place]) 1 ravin PRN QID PRN TP MUSCLE PAIN 03/17/21 19:45 Al Hydroxide/Mg Hydroxide (Mylanta Plus Xs) 15 ml PRN AFTMEALHC PRN PO DYSPEPSIA 03/17/21 19:45 Magnesium Hydroxide (Milk Of Magnesia) 2,400 mg PRN QHS PRN PO CONSTIPATION 03/17/21 19:45 Mirtazapine (Remeron) 7.5 mg QHS PO 03/18/21 21:00 03/28/21 18:25 DC 03/27/21 20:05 Olanzapine (ZyPREXA ZYDIS) 2.5 mg PRN Q2HRS PRN PO PSYCHOSIS 03/18/21 10:30 04/03/21 09:09 Vitamin D (Vitamin D3) 50,000 unit WEEKLY PO 03/18/21 18:00 04/01/21 08:25 Ferrous Sulfate (Feosol) 325 mg BIDWMEALS PO 03/18/21 18:00 04/03/21 17:09 Ascorbic Acid (Vitamin C) 500 mg BID PO 03/18/21 21:00 04/03/21 20:03 Vitamin D (Vitamin D3) 50,000 unit WEEKLY PO 03/19/21 09:00 03/18/21 17:45 DC Ferrous Sulfate (Feosol) 325 mg BID PO 03/18/21 21:00 03/18/21 17:45 DC Ascorbic Acid (Vitamin C) 500 mg BID PO 03/18/21 21:00 03/18/21 17:45 DC Quetiapine Fumarate (SEROquel) 25 mg 0900,1300,1700 PO 03/19/21 13:00 03/21/21 16:43 DC 03/21/21 13:27 Quetiapine Fumarate (SEROquel) 37.5 mg 0900,1300,1700 PO 03/21/21 17:00 03/22/21 16:40 DC 03/22/21 12:37 Quetiapine Fumarate (SEROquel) 37.5 mg 1300,1700 PO 03/22/21 17:00 03/24/21 02:09 DC 03/23/21 16:47 Quetiapine Fumarate (SEROquel) 50 mg 0900 PO 03/23/21 09:00 03/26/21 12:36 DC 03/26/21 08:10 Sertraline HCl (Zoloft) 100 mg DAILY PO 03/23/21 09:00 03/24/21 21:11 DC 03/24/21 08:30 Sertraline HCl (Zoloft) 50 mg DAILY PO 03/23/21 09:00 03/24/21 21:11 DC 03/24/21 08:30 Quetiapine Fumarate (SEROquel) 37.5 mg DAILY@1700 PO 03/24/21 17:00 03/26/21 12:36 DC 03/25/21 16:40 Quetiapine Fumarate (SEROquel) 50 mg DAILY@1400 PO 03/24/21 14:00 03/26/21 12:36 DC 03/25/21 13:27 Duloxetine HCl (Cymbalta) 30 mg DAILY PO 03/25/21 09:00 03/27/21 11:00 DC 03/27/21 08:51 Duloxetine HCl (Cymbalta) 60 mg DAILY PO 03/28/21 09:00 04/03/21 08:14 Trazodone HCl (Desyrel) 100 mg PRN QHS PRN PO INSOMNIA 03/26/21 12:30 03/26/21 12:49 DC Trazodone HCl (Desyrel) 50 mg 1X ONCE PO 03/26/21 12:45 03/26/21 12:44 DC Trazodone HCl (Desyrel) 50 mg PRN QHS PRN PO 1ST CHOICE INSOMNIA 03/26/21 13:15 03/26/21 22:33 Aripiprazole (Abilify) 2 mg DAILY PO 03/28/21 09:00 03/30/21 03:17 DC 03/29/21 08:03 Hydrocortisone (Cortaid) 1 ravin BID TP 03/28/21 21:00 04/03/21 20:03 Mirtazapine (Remeron) 15 mg QHS PO 03/28/21 21:00 04/03/21 20:03 Aripiprazole (Abilify) 5 mg DAILY PO 03/30/21 09:00 04/03/21 08:14 Dextrose (Dextrose 50%-Water Syringe) 12.5 gm PRN Q15MIN PRN IV SEE COMMENTS 04/02/21 16:00 Metformin HCl (Glucophage Xr) 500 mg DAILYWBKFT PO 04/04/21 08:00 I have reviewed the current psychotropics carefully including drug interactions. Risk benefit ratio favors no change other than as noted in my dictated progress note. Diagnosis: Problems: (1) Major depressive disorder, recurrent episode (2) Impulse control disorder, unspecified (3) Anxiety disorder, unspecified (4) Major neurocognitive disorder (5) Dementia, vascular, with depression (6) Dementia, vascular, with delusions KADI YEPEZ MD Apr 03, 2021 21:59
--- NOTE | 2021-04-03 23:24 | NUR ---
This evening pt sat in the hallway visiting with a peer. She has been pleasant and cooperative tonight. Meds were taken whole without difficulty. She has not been tearful tonight and only called out for Paula for a few minutes before falling to sleep.
[2021-04-04 06:11] VITALS: BP 124/68
[2021-04-04] MEDS: HYDROCORTISONE 1% TOPICAL OINTMENT 30GM TUBE. TP SCH ×2 (08:37→19:49)
[2021-04-04] MEDS: FERROUS SULFATE 325 MG TABLET. PO SCH ×2 (08:39→17:21)
[2021-04-04] MEDS: PANTOPRAZOLE 40 MG TABLET. PO SCH ×2 (08:39→17:21)
[2021-04-04] MEDS: FENOFIBRATE NANOCRYSTALLIZED 145 MG TABLET PO SCH (08:39)
[2021-04-04] MEDS: ASCORBIC ACID 500 MG TABLET PO SCH ×2 (08:39→19:49)
[2021-04-04] MEDS: FUROSEMIDE 20 MG TABLET PO SCH (08:39)
[2021-04-04] MEDS: ARIPiprazole 5 MG TABLET PO SCH (08:39)
[2021-04-04] MEDS: POTASSIUM CHLORIDE 10 MEQ TABLET.ER. PO SCH (08:40)
[2021-04-04] MEDS: metFORMIN XR 500 MG TAB.ER.24H PO SCH (08:55)
[2021-04-04] MEDS: DULoxetine HCL 60 MG CAPSULE.DR PO SCH (08:55)
--- NOTE | 2021-04-04 09:05 | PDOC ---
Exam Note: Morgan Note: This note is a late entry for 04/01/2021 covers elements not covered in my initial note. Subjective: The patient was seen face to face in the evening of 04/01/2021 with Ira MONTERO, discussed and reviewed the chart. The patient slept 7-1/2 hours previous night. Patient remains somewhat tearful, labile with her mood at times, calling out for Paula. History from the son reveals that she has had some of this tearfulness and mood lability going back quite awhile more so since October. Review of Systems: Ambulation impaired with walker. No CV, , pulmonary, eye, ENT system symptoms on review. Mental Status Exam: The patient is oriented to herself. Insight and judgment, recent and remote memory, attention and concentration, fund of knowledge is poor consistent with her diagnoses. Laboratory Data: Reviewed. Impression: Major neurocognitive disorder Alzheimer, vascular with delusion, depression, behavioral disturbance. Anxiety disorder unspecified. Impulse control disorder unspecified. Major depressive disorder. Plan: Continue current psychotropics. Assessment: Vital Signs/I&O: Vital Signs Date Time Temp Pulse Resp B/P (MAP) Pulse Ox O2 Delivery O2 Flow Rate FiO2 04/04/21 06:11 98.3 79 18 124/68 (86) 95 04/02/21 05:48 Room Air I & O 04/03/21 04/03/21 04/04/21 15:00 23:00 07:00 Intake Total 1080 ml 720 ml Balance 1080 ml 720 ml Labs: Laboratory Tests Test 04/03/21 11:29 Glucose (Fingerstick) 118 mg/dL (70-99) H Current Medications: Meds: Laboratory Tests Test 04/03/21 11:29 Glucose (Fingerstick) 118 mg/dL Current Medications Medications (Trade) Dose Ordered Sig/Wing Route PRN Reason Start Time Stop Time Status Last Admin Dose Admin Albuterol Sulfate (Ventolin) 2.5 mg PRN QID PRN IH wheezing 03/17/21 19:45 Furosemide (Lasix) 60 mg DAILY PO 03/18/21 09:00 04/04/21 08:39 Pantoprazole Sodium (Protonix) 40 mg BIDBFRMEAL PO 03/18/21 07:30 04/04/21 08:39 Fenofibrate (Tricor) 145 mg DAILY PO 03/18/21 09:00 04/04/21 08:39 Potassium Chloride (Klor-Con) 30 meq DAILYWBKFT PO 03/18/21 08:00 04/04/21 08:40 Rivaroxaban (Xarelto) 20 mg DAILYWSUP PO 03/17/21 20:00 04/03/21 17:09 Lorazepam (Ativan) 1 mg PRN TID PRN PO ANXIETY / AGITATION 03/17/21 19:45 03/26/21 12:36 DC 03/17/21 20:19 Quetiapine Fumarate (SEROquel) 50 mg DAILYWSUP PO 03/17/21 20:00 03/19/21 11:53 DC 03/18/21 17:15 Sertraline HCl (Zoloft) 200 mg DAILY PO 03/18/21 09:00 03/22/21 19:40 DC 03/22/21 08:42 Temazepam (Restoril) 15 mg PRN QHS PRN PO 2nd choice INSOMNIA 03/17/21 19:45 04/01/21 20:29 DC 03/23/21 22:08 Trazodone HCl (Desyrel) 100 mg HS PO 03/17/21 21:00 03/26/21 12:36 DC 03/25/21 19:59 Acetaminophen (Tylenol) 650 mg PRN Q6HRS PRN PO MILD PAIN / TEMP > 100.3'F 03/17/21 19:45 03/19/21 08:36 Multi-Ingredient Ointment (Analgesic [place]) 1 ravin PRN QID PRN TP MUSCLE PAIN 03/17/21 19:45 Al Hydroxide/Mg Hydroxide (Mylanta Plus Xs) 15 ml PRN AFTMEALHC PRN PO DYSPEPSIA 03/17/21 19:45 Magnesium Hydroxide (Milk Of Magnesia) 2,400 mg PRN QHS PRN PO CONSTIPATION 03/17/21 19:45 Mirtazapine (Remeron) 7.5 mg QHS PO 03/18/21 21:00 03/28/21 18:25 DC 03/27/21 20:05 Olanzapine (ZyPREXA ZYDIS) 2.5 mg PRN Q2HRS PRN PO PSYCHOSIS 03/18/21 10:30 04/03/21 09:09 Vitamin D (Vitamin D3) 50,000 unit WEEKLY PO 03/18/21 18:00 04/01/21 08:25 Ferrous Sulfate (Feosol) 325 mg BIDWMEALS PO 03/18/21 18:00 04/04/21 08:39 Ascorbic Acid (Vitamin C) 500 mg BID PO 03/18/21 21:00 04/04/21 08:39 Vitamin D (Vitamin D3) 50,000 unit WEEKLY PO 03/19/21 09:00 03/18/21 17:45 DC Ferrous Sulfate (Feosol) 325 mg BID PO 03/18/21 21:00 03/18/21 17:45 DC Ascorbic Acid (Vitamin C) 500 mg BID PO 03/18/21 21:00 03/18/21 17:45 DC Quetiapine Fumarate (SEROquel) 25 mg 0900,1300,1700 PO 03/19/21 13:00 03/21/21 16:43 DC 03/21/21 13:27 Quetiapine Fumarate (SEROquel) 37.5 mg 0900,1300,1700 PO 03/21/21 17:00 03/22/21 16:40 DC 03/22/21 12:37 Quetiapine Fumarate (SEROquel) 37.5 mg 1300,1700 PO 03/22/21 17:00 03/24/21 02:09 DC 03/23/21 16:47 Quetiapine Fumarate (SEROquel) 50 mg 0900 PO 03/23/21 09:00 03/26/21 12:36 DC 03/26/21 08:10 Sertraline HCl (Zoloft) 100 mg DAILY PO 03/23/21 09:00 03/24/21 21:11 DC 03/24/21 08:30 Sertraline HCl (Zoloft) 50 mg DAILY PO 03/23/21 09:00 03/24/21 21:11 DC 03/24/21 08:30 Quetiapine Fumarate (SEROquel) 37.5 mg DAILY@1700 PO 03/24/21 17:00 03/26/21 12:36 DC 03/25/21 16:40 Quetiapine Fumarate (SEROquel) 50 mg DAILY@1400 PO 03/24/21 14:00 03/26/21 12:36 DC 03/25/21 13:27 Duloxetine HCl (Cymbalta) 30 mg DAILY PO 03/25/21 09:00 03/27/21 11:00 DC 03/27/21 08:51 Duloxetine HCl (Cymbalta) 60 mg DAILY PO 03/28/21 09:00 04/04/21 08:55 Trazodone HCl (Desyrel) 100 mg PRN QHS PRN PO INSOMNIA 03/26/21 12:30 03/26/21 12:49 DC Trazodone HCl (Desyrel) 50 mg 1X ONCE PO 03/26/21 12:45 03/26/21 12:44 DC Trazodone HCl (Desyrel) 50 mg PRN QHS PRN PO 1ST CHOICE INSOMNIA 03/26/21 13:15 03/26/21 22:33 Aripiprazole (Abilify) 2 mg DAILY PO 03/28/21 09:00 03/30/21 03:17 DC 03/29/21 08:03 Hydrocortisone (Cortaid) 1 ravin BID TP 03/28/21 21:00 04/04/21 08:37 Mirtazapine (Remeron) 15 mg QHS PO 03/28/21 21:00 04/03/21 20:03 Aripiprazole (Abilify) 5 mg DAILY PO 03/30/21 09:00 04/04/21 08:39 Dextrose (Dextrose 50%-Water Syringe) 12.5 gm PRN Q15MIN PRN IV SEE COMMENTS 04/02/21 16:00 Metformin HCl (Glucophage Xr) 500 mg DAILYWBKFT PO 04/04/21 08:00 04/04/21 08:55 Current Medications Medications (Trade) Dose Ordered Sig/Wing Route PRN Reason Start Time Stop Time Status Last Admin Dose Admin Metformin HCl (Glucophage Xr) 500 mg DAILYWBKFT PO 04/04/21 08:00 04/04/21 08:55 I have reviewed the current psychotropics carefully including drug interactions. Risk benefit ratio favors no change other than as noted in my dictated progress note. Diagnosis: Problems: (1) Major depressive disorder, recurrent episode (2) Impulse control disorder, unspecified (3) Anxiety disorder, unspecified (4) Major neurocognitive disorder (5) Dementia, vascular, with depression (6) Dementia, vascular, with delusions KADI YEPEZ MD Apr 04, 2021 09:05
--- NOTE | 2021-04-04 09:29 | PDOC ---
Exam Note: Morgan Note: This note is a late entry for 04/02/2021 covers elements not covered in my initial note. Subjective: The patient was reviewed at treatment team meeting individually in the morning on 04/02/2021 with Luzma Toro, Jessica Cheng (nephrology social worker), Caitlin, activity therapy and David MONTERO, discussed and reviewed the chart. The patient slept 8-3/4 hours previous night. Patients daughter Paula attended the conference. Overall the patient has had episodes of crying, calling out for her daughter but less so today. Review of Systems: Ambulation impaired with walker. No CV, , pulmonary, eye, ENT system symptoms on review. Reliability poor. Mental Status Exam: The patient is oriented to herself. Insight and judgment, recent and remote memory, attention and concentration, fund of knowledge is poor consistent with her diagnoses. Laboratory Data: Reviewed. Impression: Major neurocognitive disorder Alzheimer, vascular with delusion, depression, behavioral disturbance. Anxiety disorder unspecified. Impulse control disorder unspecified. Major depressive disorder. Plan: Continue current psychotropics. I had a lengthy discussion with the patients daughter about patients diagnoses and possibility of pseudobulbar affect. Depending on how she does on antidepressants being augmented with Abilify at a later stage consideration maybe given to Nuedexta if some of her mood lability persists despite all of these changes in her psychotropics. Assessment: Vital Signs/I&O: Vital Signs Date Time Temp Pulse Resp B/P (MAP) Pulse Ox O2 Delivery O2 Flow Rate FiO2 04/04/21 06:11 98.3 79 18 124/68 (86) 95 04/02/21 05:48 Room Air I & O 04/03/21 04/03/21 04/04/21 15:00 23:00 07:00 Intake Total 1080 ml 720 ml Balance 1080 ml 720 ml Labs: Laboratory Tests Test 04/03/21 11:29 Glucose (Fingerstick) 118 mg/dL (70-99) H Current Medications: Meds: Current Medications Medications (Trade) Dose Ordered Sig/Wing Route PRN Reason Start Time Stop Time Status Last Admin Dose Admin Metformin HCl (Glucophage Xr) 500 mg DAILYWBKFT PO 04/04/21 08:00 04/04/21 08:55 I have reviewed the current psychotropics carefully including drug interactions. Risk benefit ratio favors no change other than as noted in my dictated progress note. Diagnosis: Problems: (1) Major depressive disorder, recurrent episode (2) Impulse control disorder, unspecified (3) Anxiety disorder, unspecified (4) Major neurocognitive disorder (5) Dementia, vascular, with depression (6) Dementia, vascular, with delusions KADI YEPEZ MD Apr 04, 2021 09:29
--- NOTE | 2021-04-04 09:49 | NUR ---
[facility] Social Work Discharge Planning Form Patient Name DANICA KENT Admit Date: 03/17/21 DISCHARGE PLAN Discharge Destination: [facility] Care Assessment: N/A Transportation: Family will transport on 04/07/21 at 10am. Special Instructions/Notes: Danica has an appointment scheduled with Dr. Randle on 04/18/21 at 10am. Danica has an appointment scheduled with Dr. Pool on 05/02/21 at 9am. DISCHARGE TO FACILITY Facility: [facility] Address: [address] [place] [address] Contact Name: nurse Christa PCP: Dr. Randle [phone], (fax) Psychiatrist: Dr. Pool [phone], (fax) Pharmacy: [facility], . Please call in Abilify, Remeron, Cymbalta, Zyprexa and Tricor on 04/05/21 so family has time to fern picker medications. Danica has a supply of all other medications at her apartment.
--- NOTE | 2021-04-04 10:33 | PDOC ---
Exam Note: Morgan Note: This note is a late entry for 04/03/2021 covers elements not covered in my initial note. Subjective: The patient was seen face to face in the evening of 04/03/2021 with Rosalia MONTERO, discussed and reviewed the chart. The patient slept 6-3/4 hours previous night. Patient has been pleasant. She was not tearful at all and stated she felt much better. Appetite is fair. She interacts with staff. Review of Systems: No CV, , pulmonary, eye, ENT system symptoms on review. Reliability poor. Mental Status Exam: The patient is oriented to herself. Insight and judgment, recent and remote memory, attention and concentration, fund of knowledge is poor consistent with her diagnoses. Laboratory Data: Reviewed. Impression: Major neurocognitive disorder Alzheimer, vascular with delusion, depression, behavioral disturbance. Anxiety disorder unspecified. Impulse control disorder unspecified. Major depressive disorder. Plan: Continue current psychotropics. Assessment: Vital Signs/I&O: Vital Signs Date Time Temp Pulse Resp B/P (MAP) Pulse Ox O2 Delivery O2 Flow Rate FiO2 04/04/21 06:11 98.3 79 18 124/68 (86) 95 04/02/21 05:48 Room Air I & O 04/03/21 04/03/21 04/04/21 15:00 23:00 07:00 Intake Total 1080 ml 720 ml Balance 1080 ml 720 ml Labs: Laboratory Tests Test 04/03/21 11:29 Glucose (Fingerstick) 118 mg/dL (70-99) H Current Medications: Meds: Laboratory Tests Test 04/03/21 11:29 Glucose (Fingerstick) 118 mg/dL Current Medications Medications (Trade) Dose Ordered Sig/Wing Route PRN Reason Start Time Stop Time Status Last Admin Dose Admin Albuterol Sulfate (Ventolin) 2.5 mg PRN QID PRN IH wheezing 03/17/21 19:45 Furosemide (Lasix) 60 mg DAILY PO 03/18/21 09:00 04/04/21 08:39 Pantoprazole Sodium (Protonix) 40 mg BIDBFRMEAL PO 03/18/21 07:30 04/04/21 08:39 Fenofibrate (Tricor) 145 mg DAILY PO 03/18/21 09:00 04/04/21 08:39 Potassium Chloride (Klor-Con) 30 meq DAILYWBKFT PO 03/18/21 08:00 04/04/21 08:40 Rivaroxaban (Xarelto) 20 mg DAILYWSUP PO 03/17/21 20:00 04/03/21 17:09 Lorazepam (Ativan) 1 mg PRN TID PRN PO ANXIETY / AGITATION 03/17/21 19:45 03/26/21 12:36 DC 03/17/21 20:19 Quetiapine Fumarate (SEROquel) 50 mg DAILYWSUP PO 03/17/21 20:00 03/19/21 11:53 DC 03/18/21 17:15 Sertraline HCl (Zoloft) 200 mg DAILY PO 03/18/21 09:00 03/22/21 19:40 DC 03/22/21 08:42 Temazepam (Restoril) 15 mg PRN QHS PRN PO 2nd choice INSOMNIA 03/17/21 19:45 04/01/21 20:29 DC 03/23/21 22:08 Trazodone HCl (Desyrel) 100 mg HS PO 03/17/21 21:00 03/26/21 12:36 DC 03/25/21 19:59 Acetaminophen (Tylenol) 650 mg PRN Q6HRS PRN PO MILD PAIN / TEMP > 100.3'F 03/17/21 19:45 03/19/21 08:36 Multi-Ingredient Ointment (Analgesic [place]) 1 ravin PRN QID PRN TP MUSCLE PAIN 03/17/21 19:45 Al Hydroxide/Mg Hydroxide (Mylanta Plus Xs) 15 ml PRN AFTMEALHC PRN PO DYSPEPSIA 03/17/21 19:45 Magnesium Hydroxide (Milk Of Magnesia) 2,400 mg PRN QHS PRN PO CONSTIPATION 03/17/21 19:45 Mirtazapine (Remeron) 7.5 mg QHS PO 03/18/21 21:00 03/28/21 18:25 DC 03/27/21 20:05 Olanzapine (ZyPREXA ZYDIS) 2.5 mg PRN Q2HRS PRN PO PSYCHOSIS 03/18/21 10:30 04/03/21 09:09 Vitamin D (Vitamin D3) 50,000 unit WEEKLY PO 03/18/21 18:00 04/01/21 08:25 Ferrous Sulfate (Feosol) 325 mg BIDWMEALS PO 03/18/21 18:00 04/04/21 08:39 Ascorbic Acid (Vitamin C) 500 mg BID PO 03/18/21 21:00 04/04/21 08:39 Vitamin D (Vitamin D3) 50,000 unit WEEKLY PO 03/19/21 09:00 03/18/21 17:45 DC Ferrous Sulfate (Feosol) 325 mg BID PO 03/18/21 21:00 03/18/21 17:45 DC Ascorbic Acid (Vitamin C) 500 mg BID PO 03/18/21 21:00 03/18/21 17:45 DC Quetiapine Fumarate (SEROquel) 25 mg 0900,1300,1700 PO 03/19/21 13:00 03/21/21 16:43 DC 03/21/21 13:27 Quetiapine Fumarate (SEROquel) 37.5 mg 0900,1300,1700 PO 03/21/21 17:00 03/22/21 16:40 DC 03/22/21 12:37 Quetiapine Fumarate (SEROquel) 37.5 mg 1300,1700 PO 03/22/21 17:00 03/24/21 02:09 DC 03/23/21 16:47 Quetiapine Fumarate (SEROquel) 50 mg 0900 PO 03/23/21 09:00 03/26/21 12:36 DC 03/26/21 08:10 Sertraline HCl (Zoloft) 100 mg DAILY PO 03/23/21 09:00 03/24/21 21:11 MD 03/24/21 08:30 Sertraline HCl (Zoloft) 50 mg DAILY PO 03/23/21 09:00 03/24/21 21:11 DC 03/24/21 08:30 Quetiapine Fumarate (SEROquel) 37.5 mg DAILY@1700 PO 03/24/21 17:00 03/26/21 12:36 DC 03/25/21 16:40 Quetiapine Fumarate (SEROquel) 50 mg DAILY@1400 PO 03/24/21 14:00 03/26/21 12:36 DC 03/25/21 13:27 Duloxetine HCl (Cymbalta) 30 mg DAILY PO 03/25/21 09:00 03/27/21 11:00 DC 03/27/21 08:51 Duloxetine HCl (Cymbalta) 60 mg DAILY PO 03/28/21 09:00 04/04/21 08:55 Trazodone HCl (Desyrel) 100 mg PRN QHS PRN PO INSOMNIA 03/26/21 12:30 03/26/21 12:49 DC Trazodone HCl (Desyrel) 50 mg 1X ONCE PO 03/26/21 12:45 03/26/21 12:44 DC Trazodone HCl (Desyrel) 50 mg PRN QHS PRN PO 1ST CHOICE INSOMNIA 03/26/21 13:15 03/26/21 22:33 Aripiprazole (Abilify) 2 mg DAILY PO 03/28/21 09:00 03/30/21 03:17 DC 03/29/21 08:03 Hydrocortisone (Cortaid) 1 ravin BID TP 03/28/21 21:00 04/04/21 08:37 Mirtazapine (Remeron) 15 mg QHS PO 03/28/21 21:00 04/03/21 20:03 Aripiprazole (Abilify) 5 mg DAILY PO 03/30/21 09:00 04/04/21 08:39 Dextrose (Dextrose 50%-Water Syringe) 12.5 gm PRN Q15MIN PRN IV SEE COMMENTS 04/02/21 16:00 Metformin HCl (Glucophage Xr) 500 mg DAILYWBKFT PO 04/04/21 08:00 04/04/21 08:55 Current Medications Medications (Trade) Dose Ordered Sig/Wing Route PRN Reason Start Time Stop Time Status Last Admin Dose Admin Metformin HCl (Glucophage Xr) 500 mg DAILYWBKFT PO 04/04/21 08:00 04/04/21 08:55 I have reviewed the current psychotropics carefully including drug interactions. Risk benefit ratio favors no change other than as noted in my dictated progress note. Diagnosis: Problems: (1) Major depressive disorder, recurrent episode (2) Impulse control disorder, unspecified (3) Anxiety disorder, unspecified (4) Major neurocognitive disorder (5) Dementia, vascular, with depression (6) Dementia, vascular, with delusions KADI YEPEZ MD Apr 04, 2021 10:33
--- NOTE | 2021-04-04 13:44 | NUR ---
Pt has been cooperative and medication compliant. She has been tearful this morning and more confused than normal. Pt has been dellusional today thinking that she had been drinking and driving the night prior and was going to be arrested today. Pt kept telling the nurse to call her brother and daughter to let them know about her situation and that it is okay she deserves to be in trouble. Nurse reassured pt that she was safe last night and that she had not been drinking and driving and she was not in trouble. Pt was also reminded of her discharge date on Friday and that she will be going home and her daughter will be picking her up. She continued to be confused, tearful, crying out for berto, and dellusional. Nurse administered PRN Zyprexa at 1336. Pt has seemed to calm down since PRN has been given and is no longer tearful or crying out.
[2021-04-04 15:44] VITALS: BP 112/76
[2021-04-04] MEDS: RIVAROXABAN 10 MG TABLET. PO SCH (17:21)
[2021-04-04] MEDS: MIRTAZAPINE 15 MG TABLET PO SCH (19:49)
--- NOTE | 2021-04-04 21:55 | PDOC ---
Exam Note: Morgan Note: Please also refer to the separate dictated note~for this date of service dictated separately.~Patient seen individually. Discussed the patient with Nursing staff reviewed the chart.~Reviewed interim history and current functioning. Reviewed vital signs,~Labs/ Radiology~and current medications noted below. Continue current treatment with the changes noted in the dictated addendum note Assessment: Vital Signs/I&O: Vital Signs Date Time Temp Pulse Resp B/P (MAP) Pulse Ox O2 Delivery O2 Flow Rate FiO2 04/04/21 15:44 97.5 84 18 112/76 (88) 95 04/02/21 05:48 Room Air I & O 04/03/21 04/03/21 04/04/21 15:00 23:00 07:00 Intake Total 1080 ml 720 ml Balance 1080 ml 720 ml Current Medications: Meds: Current Medications Medications (Trade) Dose Ordered Sig/Wing Route PRN Reason Start Time Stop Time Status Last Admin Dose Admin Albuterol Sulfate (Ventolin) 2.5 mg PRN QID PRN IH wheezing 03/17/21 19:45 Furosemide (Lasix) 60 mg DAILY PO 03/18/21 09:00 04/04/21 08:39 Pantoprazole Sodium (Protonix) 40 mg BIDBFRMEAL PO 03/18/21 07:30 04/04/21 17:21 Fenofibrate (Tricor) 145 mg DAILY PO 03/18/21 09:00 04/04/21 08:39 Potassium Chloride (Klor-Con) 30 meq DAILYWBKFT PO 03/18/21 08:00 04/04/21 08:40 Rivaroxaban (Xarelto) 20 mg DAILYWSUP PO 03/17/21 20:00 04/04/21 17:21 Lorazepam (Ativan) 1 mg PRN TID PRN PO ANXIETY / AGITATION 03/17/21 19:45 03/26/21 12:36 DC 03/17/21 20:19 Quetiapine Fumarate (SEROquel) 50 mg DAILYWSUP PO 03/17/21 20:00 03/19/21 11:53 DC 03/18/21 17:15 Sertraline HCl (Zoloft) 200 mg DAILY PO 03/18/21 09:00 03/22/21 19:40 DC 03/22/21 08:42 Temazepam (Restoril) 15 mg PRN QHS PRN PO 2nd choice INSOMNIA 03/17/21 19:45 04/01/21 20:29 DC 03/23/21 22:08 Trazodone HCl (Desyrel) 100 mg HS PO 03/17/21 21:00 03/26/21 12:36 DC 03/25/21 19:59 Acetaminophen (Tylenol) 650 mg PRN Q6HRS PRN PO MILD PAIN / TEMP > 100.3'F 03/17/21 19:45 03/19/21 08:36 Multi-Ingredient Ointment (Analgesic [place]) 1 ravin PRN QID PRN TP MUSCLE PAIN 03/17/21 19:45 Al Hydroxide/Mg Hydroxide (Mylanta Plus Xs) 15 ml PRN AFTMEALHC PRN PO DYSPEPSIA 03/17/21 19:45 Magnesium Hydroxide (Milk Of Magnesia) 2,400 mg PRN QHS PRN PO CONSTIPATION 03/17/21 19:45 Mirtazapine (Remeron) 7.5 mg QHS PO 03/18/21 21:00 03/28/21 18:25 DC 03/27/21 20:05 Olanzapine (ZyPREXA ZYDIS) 2.5 mg PRN Q2HRS PRN PO PSYCHOSIS 03/18/21 10:30 04/04/21 13:26 Vitamin D (Vitamin D3) 50,000 unit WEEKLY PO 03/18/21 18:00 04/01/21 08:25 Ferrous Sulfate (Feosol) 325 mg BIDWMEALS PO 03/18/21 18:00 04/04/21 17:21 Ascorbic Acid (Vitamin C) 500 mg BID PO 03/18/21 21:00 04/04/21 19:49 Vitamin D (Vitamin D3) 50,000 unit WEEKLY PO 03/19/21 09:00 03/18/21 17:45 DC Ferrous Sulfate (Feosol) 325 mg BID PO 03/18/21 21:00 03/18/21 17:45 DC Ascorbic Acid (Vitamin C) 500 mg BID PO 03/18/21 21:00 03/18/21 17:45 DC Quetiapine Fumarate (SEROquel) 25 mg 0900,1300,1700 PO 03/19/21 13:00 03/21/21 16:43 DC 03/21/21 13:27 Quetiapine Fumarate (SEROquel) 37.5 mg 0900,1300,1700 PO 03/21/21 17:00 03/22/21 16:40 DC 03/22/21 12:37 Quetiapine Fumarate (SEROquel) 37.5 mg 1300,1700 PO 03/22/21 17:00 03/24/21 02:09 DC 03/23/21 16:47 Quetiapine Fumarate (SEROquel) 50 mg 0900 PO 03/23/21 09:00 03/26/21 12:36 DC 03/26/21 08:10 Sertraline HCl (Zoloft) 100 mg DAILY PO 03/23/21 09:00 03/24/21 21:11 DC 03/24/21 08:30 Sertraline HCl (Zoloft) 50 mg DAILY PO 03/23/21 09:00 03/24/21 21:11 DC 03/24/21 08:30 Quetiapine Fumarate (SEROquel) 37.5 mg DAILY@1700 PO 03/24/21 17:00 03/26/21 12:36 DC 03/25/21 16:40 Quetiapine Fumarate (SEROquel) 50 mg DAILY@1400 PO 03/24/21 14:00 03/26/21 12:36 DC 03/25/21 13:27 Duloxetine HCl (Cymbalta) 30 mg DAILY PO 03/25/21 09:00 03/27/21 11:00 DC 03/27/21 08:51 Duloxetine HCl (Cymbalta) 60 mg DAILY PO 03/28/21 09:00 04/04/21 08:55 Trazodone HCl (Desyrel) 100 mg PRN QHS PRN PO INSOMNIA 03/26/21 12:30 03/26/21 12:49 DC Trazodone HCl (Desyrel) 50 mg 1X ONCE PO 03/26/21 12:45 03/26/21 12:44 DC Trazodone HCl (Desyrel) 50 mg PRN QHS PRN PO 1ST CHOICE INSOMNIA 03/26/21 13:15 03/26/21 22:33 Aripiprazole (Abilify) 2 mg DAILY PO 03/28/21 09:00 03/30/21 03:17 DC 03/29/21 08:03 Hydrocortisone (Cortaid) 1 ravin BID TP 03/28/21 21:00 04/04/21 19:49 Mirtazapine (Remeron) 15 mg QHS PO 03/28/21 21:00 04/04/21 19:49 Aripiprazole (Abilify) 5 mg DAILY PO 03/30/21 09:00 04/04/21 08:39 Dextrose (Dextrose 50%-Water Syringe) 12.5 gm PRN Q15MIN PRN IV SEE COMMENTS 04/02/21 16:00 Metformin HCl (Glucophage Xr) 500 mg DAILYWBKFT PO 04/04/21 08:00 04/04/21 08:55 Current Medications Medications (Trade) Dose Ordered Sig/Wing Route PRN Reason Start Time Stop Time Status Last Admin Dose Admin Metformin HCl (Glucophage Xr) 500 mg DAILYWBKFT PO 04/04/21 08:00 04/04/21 08:55 I have reviewed the current psychotropics carefully including drug interactions. Risk benefit ratio favors no change other than as noted in my dictated progress note. Diagnosis: Problems: (1) Major depressive disorder, recurrent episode (2) Impulse control disorder, unspecified (3) Anxiety disorder, unspecified (4) Major neurocognitive disorder (5) Dementia, vascular, with depression (6) Dementia, vascular, with delusions KADI YEPEZ MD Apr 04, 2021 21:55
[2021-04-05 05:22] VITALS: BP 137/72
[2021-04-05] MEDS: PANTOPRAZOLE 40 MG TABLET. PO SCH ×2 (08:17→17:19)
[2021-04-05] MEDS: ARIPiprazole 5 MG TABLET PO SCH (08:17)
[2021-04-05] MEDS: HYDROCORTISONE 1% TOPICAL OINTMENT 30GM TUBE. TP SCH ×2 (08:17→20:44)
[2021-04-05] MEDS: FERROUS SULFATE 325 MG TABLET. PO SCH ×2 (08:17→17:19)
[2021-04-05] MEDS: metFORMIN XR 500 MG TAB.ER.24H PO SCH (08:18)
[2021-04-05] MEDS: DULoxetine HCL 60 MG CAPSULE.DR PO SCH (08:18)
[2021-04-05] MEDS: ASCORBIC ACID 500 MG TABLET PO SCH ×2 (08:18→20:44)
[2021-04-05] MEDS: FENOFIBRATE NANOCRYSTALLIZED 145 MG TABLET PO SCH (08:18)
[2021-04-05] MEDS: POTASSIUM CHLORIDE 10 MEQ TABLET.ER. PO SCH (08:18)
[2021-04-05] MEDS: FUROSEMIDE 20 MG TABLET PO SCH (08:19)
[2021-04-05 16:15] VITALS: BP 143/91
[2021-04-05] MEDS: RIVAROXABAN 10 MG TABLET. PO SCH (17:19)
--- NOTE | 2021-04-05 18:28 | NUR ---
Patient was pleasant, calm, and social with peers in the morning. She was tearful and repeatedly calling out during part of the afternoon, she was somewhat verbally redirectable. Will continue to monitor and report to oncoming shift.
[2021-04-05] MEDS: MIRTAZAPINE 15 MG TABLET PO SCH (20:44)
--- NOTE | 2021-04-05 21:56 | PDOC ---
Exam Note: Morgan Note: Please also refer to the separate dictated note~for this date of service dictated separately.~Patient seen individually. Discussed the patient with Nursing staff reviewed the chart.~Reviewed interim history and current functioning. Reviewed vital signs,~Labs/ Radiology~and current medications noted below. Continue current treatment with the changes noted in the dictated addendum note Assessment: Vital Signs/I&O: Vital Signs Date Time Temp Pulse Resp B/P (MAP) Pulse Ox O2 Delivery O2 Flow Rate FiO2 04/05/21 16:15 97.8 96 18 143/91 (108) 95 04/02/21 05:48 Room Air I & O 04/04/21 04/04/21 04/05/21 15:00 23:00 07:00 Intake Total 610 ml 490 ml Balance 610 ml 490 ml Current Medications: Meds: Current Medications Medications (Trade) Dose Ordered Sig/Wing Route PRN Reason Start Time Stop Time Status Last Admin Dose Admin Albuterol Sulfate (Ventolin) 2.5 mg PRN QID PRN IH wheezing 03/17/21 19:45 Furosemide (Lasix) 60 mg DAILY PO 03/18/21 09:00 04/05/21 08:19 Pantoprazole Sodium (Protonix) 40 mg BIDBFRMEAL PO 03/18/21 07:30 04/05/21 17:19 Fenofibrate (Tricor) 145 mg DAILY PO 03/18/21 09:00 04/05/21 08:18 Potassium Chloride (Klor-Con) 30 meq DAILYWBKFT PO 03/18/21 08:00 04/05/21 08:18 Rivaroxaban (Xarelto) 20 mg DAILYWSUP PO 03/17/21 20:00 04/05/21 17:19 Lorazepam (Ativan) 1 mg PRN TID PRN PO ANXIETY / AGITATION 03/17/21 19:45 03/26/21 12:36 DC 03/17/21 20:19 Quetiapine Fumarate (SEROquel) 50 mg DAILYWSUP PO 03/17/21 20:00 03/19/21 11:53 DC 03/18/21 17:15 Sertraline HCl (Zoloft) 200 mg DAILY PO 03/18/21 09:00 03/22/21 19:40 DC 03/22/21 08:42 Temazepam (Restoril) 15 mg PRN QHS PRN PO 2nd choice INSOMNIA 03/17/21 19:45 04/01/21 20:29 DC 03/23/21 22:08 Trazodone HCl (Desyrel) 100 mg HS PO 03/17/21 21:00 03/26/21 12:36 DC 03/25/21 19:59 Acetaminophen (Tylenol) 650 mg PRN Q6HRS PRN PO MILD PAIN / TEMP > 100.3'F 03/17/21 19:45 03/19/21 08:36 Multi-Ingredient Ointment (Analgesic [place]) 1 ravin PRN QID PRN TP MUSCLE PAIN 03/17/21 19:45 Al Hydroxide/Mg Hydroxide (Mylanta Plus Xs) 15 ml PRN AFTMEALHC PRN PO DYSPEPSIA 03/17/21 19:45 Magnesium Hydroxide (Milk Of Magnesia) 2,400 mg PRN QHS PRN PO CONSTIPATION 03/17/21 19:45 Mirtazapine (Remeron) 7.5 mg QHS PO 03/18/21 21:00 03/28/21 18:25 DC 03/27/21 20:05 Olanzapine (ZyPREXA ZYDIS) 2.5 mg PRN Q2HRS PRN PO PSYCHOSIS 03/18/21 10:30 04/04/21 13:26 Vitamin D (Vitamin D3) 50,000 unit WEEKLY PO 03/18/21 18:00 04/01/21 08:25 Ferrous Sulfate (Feosol) 325 mg BIDWMEALS PO 03/18/21 18:00 04/05/21 17:19 Ascorbic Acid (Vitamin C) 500 mg BID PO 03/18/21 21:00 04/05/21 20:44 Vitamin D (Vitamin D3) 50,000 unit WEEKLY PO 03/19/21 09:00 03/18/21 17:45 DC Ferrous Sulfate (Feosol) 325 mg BID PO 03/18/21 21:00 03/18/21 17:45 DC Ascorbic Acid (Vitamin C) 500 mg BID PO 03/18/21 21:00 03/18/21 17:45 DC Quetiapine Fumarate (SEROquel) 25 mg 0900,1300,1700 PO 03/19/21 13:00 03/21/21 16:43 DC 03/21/21 13:27 Quetiapine Fumarate (SEROquel) 37.5 mg 0900,1300,1700 PO 03/21/21 17:00 03/22/21 16:40 DC 03/22/21 12:37 Quetiapine Fumarate (SEROquel) 37.5 mg 1300,1700 PO 03/22/21 17:00 03/24/21 02:09 DC 03/23/21 16:47 Quetiapine Fumarate (SEROquel) 50 mg 0900 PO 03/23/21 09:00 03/26/21 12:36 DC 03/26/21 08:10 Sertraline HCl (Zoloft) 100 mg DAILY PO 03/23/21 09:00 03/24/21 21:11 DC 03/24/21 08:30 Sertraline HCl (Zoloft) 50 mg DAILY PO 03/23/21 09:00 03/24/21 21:11 DC 03/24/21 08:30 Quetiapine Fumarate (SEROquel) 37.5 mg DAILY@1700 PO 03/24/21 17:00 03/26/21 12:36 DC 03/25/21 16:40 Quetiapine Fumarate (SEROquel) 50 mg DAILY@1400 PO 03/24/21 14:00 03/26/21 12:36 DC 03/25/21 13:27 Duloxetine HCl (Cymbalta) 30 mg DAILY PO 03/25/21 09:00 03/27/21 11:00 DC 03/27/21 08:51 Duloxetine HCl (Cymbalta) 60 mg DAILY PO 03/28/21 09:00 04/05/21 08:18 Trazodone HCl (Desyrel) 100 mg PRN QHS PRN PO INSOMNIA 03/26/21 12:30 03/26/21 12:49 DC Trazodone HCl (Desyrel) 50 mg 1X ONCE PO 03/26/21 12:45 03/26/21 12:44 DC Trazodone HCl (Desyrel) 50 mg PRN QHS PRN PO 1ST CHOICE INSOMNIA 03/26/21 13:15 03/26/21 22:33 Aripiprazole (Abilify) 2 mg DAILY PO 03/28/21 09:00 03/30/21 03:17 DC 03/29/21 08:03 Hydrocortisone (Cortaid) 1 ravin BID TP 03/28/21 21:00 04/05/21 20:44 Mirtazapine (Remeron) 15 mg QHS PO 03/28/21 21:00 04/05/21 20:44 Aripiprazole (Abilify) 5 mg DAILY PO 03/30/21 09:00 04/05/21 08:17 Dextrose (Dextrose 50%-Water Syringe) 12.5 gm PRN Q15MIN PRN IV SEE COMMENTS 04/02/21 16:00 Metformin HCl (Glucophage Xr) 500 mg DAILYWBKFT PO 04/04/21 08:00 04/05/21 08:18 I have reviewed the current psychotropics carefully including drug interactions. Risk benefit ratio favors no change other than as noted in my dictated progress note. Diagnosis: Problems: (1) Major depressive disorder, recurrent episode (2) Impulse control disorder, unspecified (3) Anxiety disorder, unspecified (4) Major neurocognitive disorder (5) Dementia, vascular, with depression (6) Dementia, vascular, with delusions KADI YEPEZ MD Apr 05, 2021 21:56
[2021-04-05] MEDS: NYSTATIN TOPICAL POWDER 15GM BOTTLE. TP SCH (23:02)
--- NOTE | 2021-04-06 00:47 | NUR ---
Patient has been calm and socializing with peers in hallway. She was compliant with her medications. Patient only called for "Paula" one time, when nurse responded to patients room, patient stated she needed to go to the bathroom. Patient was assisted to the bathroom and then back to bed. She is asleep at this time. Patient is scheduled to discharge on Friday.
[2021-04-06] MEDS: traZODone 50 MG TABLET. PO PRN ×2 (01:18→19:58)
--- NOTE | 2021-04-06 01:19 | NUR ---
Patient has been up x2 tonight. She was up calling for "berto". Patient given PRN zyprexa for agitation/anxiety and PRN Trazodone for Insomnia per order. Will continue to monitor.
[2021-04-06 06:03] VITALS: BP 118/76
[2021-04-06] MEDS: PANTOPRAZOLE 40 MG TABLET. PO SCH ×2 (07:58→17:14)
[2021-04-06] MEDS: FERROUS SULFATE 325 MG TABLET. PO SCH ×2 (07:58→17:14)
[2021-04-06] MEDS: DULoxetine HCL 60 MG CAPSULE.DR PO SCH (07:59)
[2021-04-06] MEDS: FUROSEMIDE 20 MG TABLET PO SCH (07:59)
[2021-04-06] MEDS: POTASSIUM CHLORIDE 10 MEQ TABLET.ER. PO SCH (07:59)
[2021-04-06] MEDS: metFORMIN XR 500 MG TAB.ER.24H PO SCH (07:59)
[2021-04-06] MEDS: ASCORBIC ACID 500 MG TABLET PO SCH ×2 (07:59→19:58)
[2021-04-06] MEDS: ARIPiprazole 5 MG TABLET PO SCH (07:59)
[2021-04-06] MEDS: HYDROCORTISONE 1% TOPICAL OINTMENT 30GM TUBE. TP SCH ×2 (08:00→19:57)
[2021-04-06] MEDS: NYSTATIN TOPICAL POWDER 15GM BOTTLE. TP SCH ×2 (08:00→19:57)
[2021-04-06] MEDS: FENOFIBRATE NANOCRYSTALLIZED 145 MG TABLET PO SCH (08:00)
--- NOTE | 2021-04-06 09:48 | PDOC ---
Exam Note: Morgan Note: This note is a late entry for 04/04/2021 covers elements not covered in my initial note. Subjective: The patient was seen face to face in the evening of 04/04/2021 with David MONTERO, discussed and reviewed the chart. The patient slept 6-1/2 hours previous night. Patient has been anxious, restless. She received Zyprexa at 1726 hours. Previous night she felt like she was drunk driving. Family was going to hate her for this. As I met with her she was somewhat tearful, less so than before. She does have some symptoms of pseudobulbar affect. Review of Systems: No CV, , pulmonary, eye, ENT system symptoms on review. Mental Status Exam: The patient is oriented to herself. Insight and judgment, recent and remote memory, attention and concentration, fund of knowledge is poor consistent with her diagnoses. Laboratory Data: Reviewed. Impression: Major neurocognitive disorder Alzheimer, vascular with delusion, depression, behavioral disturbance. Anxiety disorder unspecified. Impulse control disorder unspecified. Major depressive disorder. Plan: Continue current psychotropics. Assessment: Vital Signs/I&O: Vital Signs Date Time Temp Pulse Resp B/P (MAP) Pulse Ox O2 Delivery O2 Flow Rate FiO2 04/06/21 06:03 97.9 83 16 118/76 (90) 96 04/02/21 05:48 Room Air I & O 04/05/21 04/05/21 04/06/21 15:00 23:00 07:00 Intake Total 960 ml 480 ml Balance 960 ml 480 ml Current Medications: Meds: Current Medications Medications (Trade) Dose Ordered Sig/Wing Route PRN Reason Start Time Stop Time Status Last Admin Dose Admin Albuterol Sulfate (Ventolin) 2.5 mg PRN QID PRN IH wheezing 03/17/21 19:45 Furosemide (Lasix) 60 mg DAILY PO 03/18/21 09:00 04/06/21 07:59 Pantoprazole Sodium (Protonix) 40 mg BIDBFRMEAL PO 03/18/21 07:30 04/06/21 07:58 Fenofibrate (Tricor) 145 mg DAILY PO 03/18/21 09:00 04/06/21 08:00 Potassium Chloride (Klor-Con) 30 meq DAILYWBKFT PO 03/18/21 08:00 04/06/21 07:59 Rivaroxaban (Xarelto) 20 mg DAILYWSUP PO 03/17/21 20:00 04/05/21 17:19 Lorazepam (Ativan) 1 mg PRN TID PRN PO ANXIETY / AGITATION 03/17/21 19:45 03/26/21 12:36 DC 03/17/21 20:19 Quetiapine Fumarate (SEROquel) 50 mg DAILYWSUP PO 03/17/21 20:00 03/19/21 11:53 DC 03/18/21 17:15 Sertraline HCl (Zoloft) 200 mg DAILY PO 03/18/21 09:00 03/22/21 19:40 DC 03/22/21 08:42 Temazepam (Restoril) 15 mg PRN QHS PRN PO 2nd choice INSOMNIA 03/17/21 19:45 04/01/21 20:29 DC 03/23/21 22:08 Trazodone HCl (Desyrel) 100 mg HS PO 03/17/21 21:00 03/26/21 12:36 DC 03/25/21 19:59 Acetaminophen (Tylenol) 650 mg PRN Q6HRS PRN PO MILD PAIN / TEMP > 100.3'F 03/17/21 19:45 03/19/21 08:36 Multi-Ingredient Ointment (Analgesic [place]) 1 ravin PRN QID PRN TP MUSCLE PAIN 03/17/21 19:45 Al Hydroxide/Mg Hydroxide (Mylanta Plus Xs) 15 ml PRN AFTMEALHC PRN PO DYSPEPSIA 03/17/21 19:45 Magnesium Hydroxide (Milk Of Magnesia) 2,400 mg PRN QHS PRN PO CONSTIPATION 03/17/21 19:45 Mirtazapine (Remeron) 7.5 mg QHS PO 03/18/21 21:00 03/28/21 18:25 DC 03/27/21 20:05 Olanzapine (ZyPREXA ZYDIS) 2.5 mg PRN Q2HRS PRN PO PSYCHOSIS 03/18/21 10:30 04/06/21 01:19 Vitamin D (Vitamin D3) 50,000 unit WEEKLY PO 03/18/21 18:00 04/01/21 08:25 Ferrous Sulfate (Feosol) 325 mg BIDWMEALS PO 03/18/21 18:00 04/06/21 07:58 Ascorbic Acid (Vitamin C) 500 mg BID PO 03/18/21 21:00 04/06/21 07:59 Vitamin D (Vitamin D3) 50,000 unit WEEKLY PO 03/19/21 09:00 03/18/21 17:45 DC Ferrous Sulfate (Feosol) 325 mg BID PO 03/18/21 21:00 03/18/21 17:45 DC Ascorbic Acid (Vitamin C) 500 mg BID PO 03/18/21 21:00 03/18/21 17:45 DC Quetiapine Fumarate (SEROquel) 25 mg 0900,1300,1700 PO 03/19/21 13:00 03/21/21 16:43 DC 03/21/21 13:27 Quetiapine Fumarate (SEROquel) 37.5 mg 0900,1300,1700 PO 03/21/21 17:00 03/22/21 16:40 DC 03/22/21 12:37 Quetiapine Fumarate (SEROquel) 37.5 mg 1300,1700 PO 03/22/21 17:00 03/24/21 02:09 DC 03/23/21 16:47 Quetiapine Fumarate (SEROquel) 50 mg 0900 PO 03/23/21 09:00 03/26/21 12:36 DC 03/26/21 08:10 Sertraline HCl (Zoloft) 100 mg DAILY PO 03/23/21 09:00 03/24/21 21:11 DC 03/24/21 08:30 Sertraline HCl (Zoloft) 50 mg DAILY PO 03/23/21 09:00 03/24/21 21:11 DC 03/24/21 08:30 Quetiapine Fumarate (SEROquel) 37.5 mg DAILY@1700 PO 03/24/21 17:00 03/26/21 12:36 DC 03/25/21 16:40 Quetiapine Fumarate (SEROquel) 50 mg DAILY@1400 PO 03/24/21 14:00 03/26/21 12:36 DC 03/25/21 13:27 Duloxetine HCl (Cymbalta) 30 mg DAILY PO 03/25/21 09:00 03/27/21 11:00 DC 03/27/21 08:51 Duloxetine HCl (Cymbalta) 60 mg DAILY PO 03/28/21 09:00 04/06/21 07:59 Trazodone HCl (Desyrel) 100 mg PRN QHS PRN PO INSOMNIA 03/26/21 12:30 03/26/21 12:49 DC Trazodone HCl (Desyrel) 50 mg 1X ONCE PO 03/26/21 12:45 03/26/21 12:44 DC Trazodone HCl (Desyrel) 50 mg PRN QHS PRN PO 1ST CHOICE INSOMNIA 03/26/21 13:15 04/06/21 01:18 Aripiprazole (Abilify) 2 mg DAILY PO 03/28/21 09:00 03/30/21 03:17 DC 03/29/21 08:03 Hydrocortisone (Cortaid) 1 ravin BID TP 03/28/21 21:00 04/06/21 08:00 Mirtazapine (Remeron) 15 mg QHS PO 03/28/21 21:00 04/05/21 20:44 Aripiprazole (Abilify) 5 mg DAILY PO 03/30/21 09:00 04/06/21 07:59 Dextrose (Dextrose 50%-Water Syringe) 12.5 gm PRN Q15MIN PRN IV SEE COMMENTS 04/02/21 16:00 Metformin HCl (Glucophage Xr) 500 mg DAILYWBKFT PO 04/04/21 08:00 04/06/21 07:59 Nystatin (Nystop) 1 ravin BID TP 04/05/21 23:00 04/06/21 08:00 Current Medications Medications (Trade) Dose Ordered Sig/Wing Route PRN Reason Start Time Stop Time Status Last Admin Dose Admin Nystatin (Nystop) 1 ravin BID TP 04/05/21 23:00 04/06/21 08:00 I have reviewed the current psychotropics carefully including drug interactions. Risk benefit ratio favors no change other than as noted in my dictated progress note. Diagnosis: Problems: (1) Major depressive disorder, recurrent episode (2) Impulse control disorder, unspecified (3) Anxiety disorder, unspecified (4) Major neurocognitive disorder (5) Dementia, vascular, with depression (6) Dementia, vascular, with delusions KADI YEPEZ MD Apr 06, 2021 09:48
--- NOTE | 2021-04-06 10:00 | PDOC ---
Exam Note: Morgan Note: This note is a late entry for 04/05/2021 covers elements not covered in my initial note. Subjective: The patient was seen face to face in the evening of 04/05/2021 with Joelle MONTERO, discussed and reviewed the chart. The patient slept 6-1/4 hours previous night. Patient has been yelling out, less for Paula her daughter. She does redirect better. Review of Systems: No CV, , pulmonary, eye, ENT system symptoms on review. Mental Status Exam: The patient is oriented to herself. Insight and judgment, recent and remote memory, attention and concentration, fund of knowledge is poor consistent with her diagnoses. Laboratory Data: Reviewed. Impression: Major neurocognitive disorder Alzheimer, vascular with delusion, depression, behavioral disturbance. Anxiety disorder unspecified. Impulse control disorder unspecified. Major depressive disorder. Plan: Continue current psychotropics. Assessment: Vital Signs/I&O: Vital Signs Date Time Temp Pulse Resp B/P (MAP) Pulse Ox O2 Delivery O2 Flow Rate FiO2 04/06/21 06:03 97.9 83 16 118/76 (90) 96 04/02/21 05:48 Room Air I & O 04/05/21 04/05/21 04/06/21 15:00 23:00 07:00 Intake Total 960 ml 480 ml Balance 960 ml 480 ml Current Medications: Meds: Current Medications Medications (Trade) Dose Ordered Sig/Wing Route PRN Reason Start Time Stop Time Status Last Admin Dose Admin Albuterol Sulfate (Ventolin) 2.5 mg PRN QID PRN IH wheezing 03/17/21 19:45 Furosemide (Lasix) 60 mg DAILY PO 03/18/21 09:00 04/06/21 07:59 Pantoprazole Sodium (Protonix) 40 mg BIDBFRMEAL PO 03/18/21 07:30 04/06/21 07:58 Fenofibrate (Tricor) 145 mg DAILY PO 03/18/21 09:00 04/06/21 08:00 Potassium Chloride (Klor-Con) 30 meq DAILYWBKFT PO 03/18/21 08:00 04/06/21 07:59 Rivaroxaban (Xarelto) 20 mg DAILYWSUP PO 03/17/21 20:00 04/05/21 17:19 Lorazepam (Ativan) 1 mg PRN TID PRN PO ANXIETY / AGITATION 03/17/21 19:45 03/26/21 12:36 DC 03/17/21 20:19 Quetiapine Fumarate (SEROquel) 50 mg DAILYWSUP PO 03/17/21 20:00 03/19/21 11:53 DC 03/18/21 17:15 Sertraline HCl (Zoloft) 200 mg DAILY PO 03/18/21 09:00 03/22/21 19:40 DC 03/22/21 08:42 Temazepam (Restoril) 15 mg PRN QHS PRN PO 2nd choice INSOMNIA 03/17/21 19:45 04/01/21 20:29 DC 03/23/21 22:08 Trazodone HCl (Desyrel) 100 mg HS PO 03/17/21 21:00 03/26/21 12:36 DC 03/25/21 19:59 Acetaminophen (Tylenol) 650 mg PRN Q6HRS PRN PO MILD PAIN / TEMP > 100.3'F 03/17/21 19:45 03/19/21 08:36 Multi-Ingredient Ointment (Analgesic [place]) 1 ravin PRN QID PRN TP MUSCLE PAIN 03/17/21 19:45 Al Hydroxide/Mg Hydroxide (Mylanta Plus Xs) 15 ml PRN AFTMEALHC PRN PO DYSPEPSIA 03/17/21 19:45 Magnesium Hydroxide (Milk Of Magnesia) 2,400 mg PRN QHS PRN PO CONSTIPATION 03/17/21 19:45 Mirtazapine (Remeron) 7.5 mg QHS PO 03/18/21 21:00 03/28/21 18:25 DC 03/27/21 20:05 Olanzapine (ZyPREXA ZYDIS) 2.5 mg PRN Q2HRS PRN PO PSYCHOSIS 03/18/21 10:30 04/06/21 01:19 Vitamin D (Vitamin D3) 50,000 unit WEEKLY PO 03/18/21 18:00 04/01/21 08:25 Ferrous Sulfate (Feosol) 325 mg BIDWMEALS PO 03/18/21 18:00 04/06/21 07:58 Ascorbic Acid (Vitamin C) 500 mg BID PO 03/18/21 21:00 04/06/21 07:59 Vitamin D (Vitamin D3) 50,000 unit WEEKLY PO 03/19/21 09:00 03/18/21 17:45 DC Ferrous Sulfate (Feosol) 325 mg BID PO 03/18/21 21:00 03/18/21 17:45 DC Ascorbic Acid (Vitamin C) 500 mg BID PO 03/18/21 21:00 03/18/21 17:45 DC Quetiapine Fumarate (SEROquel) 25 mg 0900,1300,1700 PO 03/19/21 13:00 03/21/21 16:43 DC 03/21/21 13:27 Quetiapine Fumarate (SEROquel) 37.5 mg 0900,1300,1700 PO 03/21/21 17:00 03/22/21 16:40 DC 03/22/21 12:37 Quetiapine Fumarate (SEROquel) 37.5 mg 1300,1700 PO 03/22/21 17:00 03/24/21 02:09 DC 03/23/21 16:47 Quetiapine Fumarate (SEROquel) 50 mg 0900 PO 03/23/21 09:00 03/26/21 12:36 DC 03/26/21 08:10 Sertraline HCl (Zoloft) 100 mg DAILY PO 03/23/21 09:00 03/24/21 21:11 DC 03/24/21 08:30 Sertraline HCl (Zoloft) 50 mg DAILY PO 03/23/21 09:00 03/24/21 21:11 DC 03/24/21 08:30 Quetiapine Fumarate (SEROquel) 37.5 mg DAILY@1700 PO 03/24/21 17:00 03/26/21 12:36 DC 03/25/21 16:40 Quetiapine Fumarate (SEROquel) 50 mg DAILY@1400 PO 03/24/21 14:00 03/26/21 12:36 DC 03/25/21 13:27 Duloxetine HCl (Cymbalta) 30 mg DAILY PO 03/25/21 09:00 03/27/21 11:00 DC 03/27/21 08:51 Duloxetine HCl (Cymbalta) 60 mg DAILY PO 03/28/21 09:00 04/06/21 07:59 Trazodone HCl (Desyrel) 100 mg PRN QHS PRN PO INSOMNIA 03/26/21 12:30 03/26/21 12:49 DC Trazodone HCl (Desyrel) 50 mg 1X ONCE PO 03/26/21 12:45 03/26/21 12:44 DC Trazodone HCl (Desyrel) 50 mg PRN QHS PRN PO 1ST CHOICE INSOMNIA 03/26/21 13:15 04/06/21 01:18 Aripiprazole (Abilify) 2 mg DAILY PO 03/28/21 09:00 03/30/21 03:17 DC 03/29/21 08:03 Hydrocortisone (Cortaid) 1 ravin BID TP 03/28/21 21:00 04/06/21 08:00 Mirtazapine (Remeron) 15 mg QHS PO 03/28/21 21:00 04/05/21 20:44 Aripiprazole (Abilify) 5 mg DAILY PO 03/30/21 09:00 04/06/21 07:59 Dextrose (Dextrose 50%-Water Syringe) 12.5 gm PRN Q15MIN PRN IV SEE COMMENTS 04/02/21 16:00 Metformin HCl (Glucophage Xr) 500 mg DAILYWBKFT PO 04/04/21 08:00 04/06/21 07:59 Nystatin (Nystop) 1 ravin BID TP 04/05/21 23:00 04/06/21 08:00 Current Medications Medications (Trade) Dose Ordered Sig/Wing Route PRN Reason Start Time Stop Time Status Last Admin Dose Admin Nystatin (Nystop) 1 ravin BID TP 04/05/21 23:00 04/06/21 08:00 I have reviewed the current psychotropics carefully including drug interactions. Risk benefit ratio favors no change other than as noted in my dictated progress note. Diagnosis: Problems: (1) Major depressive disorder, recurrent episode (2) Impulse control disorder, unspecified (3) Anxiety disorder, unspecified (4) Major neurocognitive disorder (5) Dementia, vascular, with depression (6) Dementia, vascular, with delusions KADI YEPEZ MD Apr 06, 2021 10:00
[2021-04-06] MEDS ORDERED: NYST15PO9 TP (10:39)
[2021-04-06] MEDS ORDERED: ACET325T21 PO (11:08)
[2021-04-06] MEDS ORDERED: ARIP5TAB13 PO (11:08)
[2021-04-06] MEDS ORDERED: ASCO500C PO (11:09)
[2021-04-06] MEDS ORDERED: CHOL500021 PO (11:10)
[2021-04-06] MEDS ORDERED: DULO60CA6 PO (11:12)
[2021-04-06] MEDS ORDERED: FERR325T14 PO (11:13)
[2021-04-06] MEDS ORDERED: HYDR28OI2 TP (11:16)
[2021-04-06] MEDS ORDERED: MIRT-37 PO (11:17)
[2021-04-06] MEDS ORDERED: OLAN5TAB7 PO (11:18)
[2021-04-06] MEDS ORDERED: METF-638 PO (11:19)
[2021-04-06] MEDS ORDERED: FENO145T32 PO (11:28)
[2021-04-06 16:33] VITALS: BP 147/89
[2021-04-06] MEDS: RIVAROXABAN 10 MG TABLET. PO SCH (17:14)
--- NOTE | 2021-04-06 17:41 | NUR ---
Patient was pleasant, calm, and social with peers in the morning. She was tearful and repeatedly calling out at timesin the afternoon, she less anxious when she was sitting with someone. Will continue to monitor and report to oncoming shift.
[2021-04-06] MEDS: MIRTAZAPINE 15 MG TABLET PO SCH (19:58)
--- NOTE | 2021-04-06 22:06 | PDOC ---
Exam Note: Morgan Note: Please also refer to the separate dictated note~for this date of service dictated separately.~Patient seen individually. Discussed the patient with Nursing staff reviewed the chart.~Reviewed interim history and current functioning. Reviewed vital signs,~Labs/ Radiology~and current medications noted below. Continue current treatment with the changes noted in the dictated addendum note Assessment: Vital Signs/I&O: Vital Signs Date Time Temp Pulse Resp B/P (MAP) Pulse Ox O2 Delivery O2 Flow Rate FiO2 04/06/21 16:33 97.1 93 16 147/89 (108) 95 04/02/21 05:48 Room Air I & O 04/05/21 04/05/21 04/06/21 15:00 23:00 07:00 Intake Total 960 ml 480 ml Balance 960 ml 480 ml Labs: Laboratory Tests Test 04/06/21 07:48 Glucose (Fingerstick) 139 mg/dL (70-99) H Current Medications: Meds: Laboratory Tests Test 04/06/21 07:48 Glucose (Fingerstick) 139 mg/dL Current Medications Medications (Trade) Dose Ordered Sig/Wing Route PRN Reason Start Time Stop Time Status Last Admin Dose Admin Albuterol Sulfate (Ventolin) 2.5 mg PRN QID PRN IH wheezing 03/17/21 19:45 Furosemide (Lasix) 60 mg DAILY PO 03/18/21 09:00 04/06/21 07:59 Pantoprazole Sodium (Protonix) 40 mg BIDBFRMEAL PO 03/18/21 07:30 04/06/21 17:14 Fenofibrate (Tricor) 145 mg DAILY PO 03/18/21 09:00 04/06/21 08:00 Potassium Chloride (Klor-Con) 30 meq DAILYWBKFT PO 03/18/21 08:00 04/06/21 07:59 Rivaroxaban (Xarelto) 20 mg DAILYWSUP PO 03/17/21 20:00 04/06/21 17:14 Lorazepam (Ativan) 1 mg PRN TID PRN PO ANXIETY / AGITATION 03/17/21 19:45 03/26/21 12:36 DC 03/17/21 20:19 Quetiapine Fumarate (SEROquel) 50 mg DAILYWSUP PO 03/17/21 20:00 03/19/21 11:53 DC 03/18/21 17:15 Sertraline HCl (Zoloft) 200 mg DAILY PO 03/18/21 09:00 03/22/21 19:40 DC 03/22/21 08:42 Temazepam (Restoril) 15 mg PRN QHS PRN PO 2nd choice INSOMNIA 03/17/21 19:45 04/01/21 20:29 DC 03/23/21 22:08 Trazodone HCl (Desyrel) 100 mg HS PO 03/17/21 21:00 03/26/21 12:36 DC 03/25/21 19:59 Acetaminophen (Tylenol) 650 mg PRN Q6HRS PRN PO MILD PAIN / TEMP > 100.3'F 03/17/21 19:45 03/19/21 08:36 Multi-Ingredient Ointment (Analgesic [place]) 1 ravin PRN QID PRN TP MUSCLE PAIN 03/17/21 19:45 Al Hydroxide/Mg Hydroxide (Mylanta Plus Xs) 15 ml PRN AFTMEALHC PRN PO DYSPEPSIA 03/17/21 19:45 Magnesium Hydroxide (Milk Of Magnesia) 2,400 mg PRN QHS PRN PO CONSTIPATION 03/17/21 19:45 Mirtazapine (Remeron) 7.5 mg QHS PO 03/18/21 21:00 03/28/21 18:25 DC 03/27/21 20:05 Olanzapine (ZyPREXA ZYDIS) 2.5 mg PRN Q2HRS PRN PO PSYCHOSIS 03/18/21 10:30 04/06/21 01:19 Vitamin D (Vitamin D3) 50,000 unit WEEKLY PO 03/18/21 18:00 04/01/21 08:25 Ferrous Sulfate (Feosol) 325 mg BIDWMEALS PO 03/18/21 18:00 04/06/21 17:14 Ascorbic Acid (Vitamin C) 500 mg BID PO 03/18/21 21:00 04/06/21 19:58 Vitamin D (Vitamin D3) 50,000 unit WEEKLY PO 03/19/21 09:00 03/18/21 17:45 DC Ferrous Sulfate (Feosol) 325 mg BID PO 03/18/21 21:00 03/18/21 17:45 DC Ascorbic Acid (Vitamin C) 500 mg BID PO 03/18/21 21:00 03/18/21 17:45 DC Quetiapine Fumarate (SEROquel) 25 mg 0900,1300,1700 PO 03/19/21 13:00 03/21/21 16:43 DC 03/21/21 13:27 Quetiapine Fumarate (SEROquel) 37.5 mg 0900,1300,1700 PO 03/21/21 17:00 03/22/21 16:40 DC 03/22/21 12:37 Quetiapine Fumarate (SEROquel) 37.5 mg 1300,1700 PO 03/22/21 17:00 03/24/21 02:09 DC 03/23/21 16:47 Quetiapine Fumarate (SEROquel) 50 mg 0900 PO 03/23/21 09:00 03/26/21 12:36 DC 03/26/21 08:10 Sertraline HCl (Zoloft) 100 mg DAILY PO 03/23/21 09:00 03/24/21 21:11 DC 03/24/21 08:30 Sertraline HCl (Zoloft) 50 mg DAILY PO 03/23/21 09:00 03/24/21 21:11 DC 03/24/21 08:30 Quetiapine Fumarate (SEROquel) 37.5 mg DAILY@1700 PO 03/24/21 17:00 03/26/21 12:36 DC 03/25/21 16:40 Quetiapine Fumarate (SEROquel) 50 mg DAILY@1400 PO 03/24/21 14:00 03/26/21 12:36 DC 03/25/21 13:27 Duloxetine HCl (Cymbalta) 30 mg DAILY PO 03/25/21 09:00 03/27/21 11:00 DC 03/27/21 08:51 Duloxetine HCl (Cymbalta) 60 mg DAILY PO 03/28/21 09:00 04/06/21 07:59 Trazodone HCl (Desyrel) 100 mg PRN QHS PRN PO INSOMNIA 03/26/21 12:30 03/26/21 12:49 DC Trazodone HCl (Desyrel) 50 mg 1X ONCE PO 03/26/21 12:45 03/26/21 12:44 DC Trazodone HCl (Desyrel) 50 mg PRN QHS PRN PO 1ST CHOICE INSOMNIA 03/26/21 13:15 04/06/21 19:58 Aripiprazole (Abilify) 2 mg DAILY PO 03/28/21 09:00 03/30/21 03:17 DC 03/29/21 08:03 Hydrocortisone (Cortaid) 1 ravin BID TP 03/28/21 21:00 04/06/21 19:57 Mirtazapine (Remeron) 15 mg QHS PO 03/28/21 21:00 04/06/21 19:58 Aripiprazole (Abilify) 5 mg DAILY PO 03/30/21 09:00 04/06/21 07:59 Dextrose (Dextrose 50%-Water Syringe) 12.5 gm PRN Q15MIN PRN IV SEE COMMENTS 04/02/21 16:00 Metformin HCl (Glucophage Xr) 500 mg DAILYWBKFT PO 04/04/21 08:00 04/06/21 07:59 Nystatin (Nystop) 1 ravin BID TP 04/05/21 23:00 04/06/21 19:57 Current Medications Medications (Trade) Dose Ordered Sig/Wing Route PRN Reason Start Time Stop Time Status Last Admin Dose Admin Nystatin (Nystop) 1 ravin BID TP 04/05/21 23:00 04/06/21 19:57 I have reviewed the current psychotropics carefully including drug interactions. Risk benefit ratio favors no change other than as noted in my dictated progress note. Diagnosis: Problems: (1) Major depressive disorder, recurrent episode (2) Impulse control disorder, unspecified (3) Anxiety disorder, unspecified (4) Major neurocognitive disorder (5) Dementia, vascular, with depression (6) Dementia, vascular, with delusions KADI YEPEZ MD Apr 06, 2021 22:06
--- NOTE | 2021-04-06 23:22 | NUR ---
Patient has been pleasant, social and interactive. She is compliant with medications. Patient did not sleep well last night, she had been very restless and got up to the bathroom numerous times. Tonight, PRN Trazodone was given with HS meds per patient request for insomnia. Patient has been sleeping soundly since bed time. She is scheduled to discharge tomorrow and had asked some questions about her family picking her up in the morning.
[2021-04-07 06:09] VITALS: BP 126/87
[2021-04-07] MEDS: PANTOPRAZOLE 40 MG TABLET. PO SCH (08:16)
[2021-04-07] MEDS: FERROUS SULFATE 325 MG TABLET. PO SCH (08:16)
[2021-04-07] MEDS: FUROSEMIDE 20 MG TABLET PO SCH (08:16)
[2021-04-07] MEDS: FENOFIBRATE NANOCRYSTALLIZED 145 MG TABLET PO SCH (08:16)
[2021-04-07] MEDS: ASCORBIC ACID 500 MG TABLET PO SCH (08:16)
[2021-04-07] MEDS: metFORMIN XR 500 MG TAB.ER.24H PO SCH (08:16)
[2021-04-07] MEDS: DULoxetine HCL 60 MG CAPSULE.DR PO SCH (08:17)
[2021-04-07] MEDS: HYDROCORTISONE 1% TOPICAL OINTMENT 30GM TUBE. TP SCH (08:17)
[2021-04-07] MEDS: ARIPiprazole 5 MG TABLET PO SCH (08:17)
[2021-04-07] MEDS: POTASSIUM CHLORIDE 10 MEQ TABLET.ER. PO SCH (08:17)
[2021-04-07] MEDS: NYSTATIN TOPICAL POWDER 15GM BOTTLE. TP SCH (08:17)
--- NOTE | 2021-04-07 10:15 | NUR ---
Transition Record was faxed to follow-up provider with the following elements: Reason for admission, procedures, tests, principal diagnosis, pending studies, patient instructions, 24/02 contact information for unit, phone number to obtain pending test results, plan for follow-up care, physician follow-up, advanced directive information, and medication list with dose, duration and instructions. This information was included in the following documents: History and physical, lab results, study results, progress notes, social work planning form, DC instruction form, patient visit summary, and medication reconciliation form. Date & time record faxed: 12:28 06 April 2021 Record faxed to: Dr. Randle, Dr. Pool, and [facility] Record discussed with/ report given to: WINSTON Goodwin at [facility]
--- NOTE | 2021-04-07 21:59 | PDOC ---
Exam Note: Morgan Note: Please also refer to the separate dictated note~for this date of service dictated separately.~Patient seen individually. Discussed the patient with Nursing staff reviewed the chart.~Reviewed interim history and current functioning. Reviewed vital signs,~Labs/ Radiology~and current medications noted below. Continue current treatment with the changes noted in the dictated addendum note Assessment: Vital Signs/I&O: Vital Signs Date Time Temp Pulse Resp B/P (MAP) Pulse Ox O2 Delivery O2 Flow Rate FiO2 04/07/21 06:09 98.0 83 18 126/87 (100) 93 04/02/21 05:48 Room Air I & O 04/06/21 04/06/21 04/07/21 15:00 23:00 07:00 Intake Total 1080 ml 720 ml Balance 1080 ml 720 ml Labs: Laboratory Tests Test 04/07/21 07:19 Glucose (Fingerstick) 153 mg/dL (70-99) H Current Medications: Meds: Laboratory Tests Test 04/07/21 07:19 Glucose (Fingerstick) 153 mg/dL Current Medications Medications (Trade) Dose Ordered Sig/Wing Route PRN Reason Start Time Stop Time Status Last Admin Dose Admin Albuterol Sulfate (Ventolin) 2.5 mg PRN QID PRN IH wheezing 03/17/21 19:45 04/07/21 10:19 DC Furosemide (Lasix) 60 mg DAILY PO 03/18/21 09:00 04/07/21 10:19 DC 04/07/21 08:16 Pantoprazole Sodium (Protonix) 40 mg BIDBFRMEAL PO 03/18/21 07:30 04/07/21 10:19 DC 04/07/21 08:16 Fenofibrate (Tricor) 145 mg DAILY PO 03/18/21 09:00 04/07/21 10:19 DC 04/07/21 08:16 Potassium Chloride (Klor-Con) 30 meq DAILYWBKFT PO 03/18/21 08:00 04/07/21 10:19 DC 04/07/21 08:17 Rivaroxaban (Xarelto) 20 mg DAILYWSUP PO 03/17/21 20:00 04/07/21 10:19 DC 04/06/21 17:14 Lorazepam (Ativan) 1 mg PRN TID PRN PO ANXIETY / AGITATION 03/17/21 19:45 03/26/21 12:36 DC 03/17/21 20:19 Quetiapine Fumarate (SEROquel) 50 mg DAILYWSUP PO 03/17/21 20:00 03/19/21 11:53 DC 03/18/21 17:15 Sertraline HCl (Zoloft) 200 mg DAILY PO 03/18/21 09:00 03/22/21 19:40 DC 03/22/21 08:42 Temazepam (Restoril) 15 mg PRN QHS PRN PO 2nd choice INSOMNIA 03/17/21 19:45 04/01/21 20:29 DC 03/23/21 22:08 Trazodone HCl (Desyrel) 100 mg HS PO 03/17/21 21:00 03/26/21 12:36 DC 03/25/21 19:59 Acetaminophen (Tylenol) 650 mg PRN Q6HRS PRN PO MILD PAIN / TEMP > 100.3'F 03/17/21 19:45 04/07/21 10:19 DC 03/19/21 08:36 Multi-Ingredient Ointment (Analgesic [place]) 1 ravin PRN QID PRN TP MUSCLE PAIN 03/17/21 19:45 04/07/21 10:19 DC Al Hydroxide/Mg Hydroxide (Mylanta Plus Xs) 15 ml PRN AFTMEALHC PRN PO DYSPEPSIA 03/17/21 19:45 04/07/21 10:20 DC Magnesium Hydroxide (Milk Of Magnesia) 2,400 mg PRN QHS PRN PO CONSTIPATION 03/17/21 19:45 04/07/21 10:20 DC Mirtazapine (Remeron) 7.5 mg QHS PO 03/18/21 21:00 03/28/21 18:25 DC 03/27/21 20:05 Olanzapine (ZyPREXA ZYDIS) 2.5 mg PRN Q2HRS PRN PO PSYCHOSIS 03/18/21 10:30 04/07/21 10:20 DC 04/06/21 01:19 Vitamin D (Vitamin D3) 50,000 unit WEEKLY PO 03/18/21 18:00 04/07/21 10:20 DC 04/01/21 08:25 Ferrous Sulfate (Feosol) 325 mg BIDWMEALS PO 03/18/21 18:00 04/07/21 10:20 DC 04/07/21 08:16 Ascorbic Acid (Vitamin C) 500 mg BID PO 03/18/21 21:00 04/07/21 10:20 DC 04/07/21 08:16 Vitamin D (Vitamin D3) 50,000 unit WEEKLY PO 03/19/21 09:00 03/18/21 17:45 DC Ferrous Sulfate (Feosol) 325 mg BID PO 03/18/21 21:00 03/18/21 17:45 DC Ascorbic Acid (Vitamin C) 500 mg BID PO 03/18/21 21:00 03/18/21 17:45 DC Quetiapine Fumarate (SEROquel) 25 mg 0900,1300,1700 PO 03/19/21 13:00 03/21/21 16:43 DC 03/21/21 13:27 Quetiapine Fumarate (SEROquel) 37.5 mg 0900,1300,1700 PO 03/21/21 17:00 03/22/21 16:40 DC 03/22/21 12:37 Quetiapine Fumarate (SEROquel) 37.5 mg 1300,1700 PO 03/22/21 17:00 03/24/21 02:09 DC 03/23/21 16:47 Quetiapine Fumarate (SEROquel) 50 mg 0900 PO 03/23/21 09:00 03/26/21 12:36 DC 03/26/21 08:10 Sertraline HCl (Zoloft) 100 mg DAILY PO 03/23/21 09:00 03/24/21 21:11 SD 03/24/21 08:30 Sertraline HCl (Zoloft) 50 mg DAILY PO 03/23/21 09:00 03/24/21 21:11 DC 03/24/21 08:30 Quetiapine Fumarate (SEROquel) 37.5 mg DAILY@1700 PO 03/24/21 17:00 03/26/21 12:36 DC 03/25/21 16:40 Quetiapine Fumarate (SEROquel) 50 mg DAILY@1400 PO 03/24/21 14:00 03/26/21 12:36 DC 03/25/21 13:27 Duloxetine HCl (Cymbalta) 30 mg DAILY PO 03/25/21 09:00 03/27/21 11:00 DC 03/27/21 08:51 Duloxetine HCl (Cymbalta) 60 mg DAILY PO 03/28/21 09:00 04/07/21 10:20 DC 04/07/21 08:17 Trazodone HCl (Desyrel) 100 mg PRN QHS PRN PO INSOMNIA 03/26/21 12:30 03/26/21 12:49 DC Trazodone HCl (Desyrel) 50 mg 1X ONCE PO 03/26/21 12:45 03/26/21 12:44 DC Trazodone HCl (Desyrel) 50 mg PRN QHS PRN PO 1ST CHOICE INSOMNIA 03/26/21 13:15 04/07/21 10:20 DC 04/06/21 19:58 Aripiprazole (Abilify) 2 mg DAILY PO 03/28/21 09:00 03/30/21 03:17 DC 03/29/21 08:03 Hydrocortisone (Cortaid) 1 ravin BID TP 03/28/21 21:00 04/07/21 10:20 DC 04/07/21 08:17 Mirtazapine (Remeron) 15 mg QHS PO 03/28/21 21:00 04/07/21 10:20 DC 04/06/21 19:58 Aripiprazole (Abilify) 5 mg DAILY PO 03/30/21 09:00 04/07/21 10:20 DC 04/07/21 08:17 Dextrose (Dextrose 50%-Water Syringe) 12.5 gm PRN Q15MIN PRN IV SEE COMMENTS 04/02/21 16:00 04/07/21 10:20 DC Metformin HCl (Glucophage Xr) 500 mg DAILYWBKFT PO 04/04/21 08:00 04/07/21 10:20 DC 04/07/21 08:16 Nystatin (Nystop) 1 ravin BID TP 04/05/21 23:00 04/07/21 10:20 DC 04/07/21 08:17 I have reviewed the current psychotropics carefully including drug interactions. Risk benefit ratio favors no change other than as noted in my dictated progress note. Diagnosis: Problems: (1) Major depressive disorder, recurrent episode (2) Impulse control disorder, unspecified (3) Anxiety disorder, unspecified (4) Major neurocognitive disorder (5) Dementia, vascular, with depression (6) Dementia, vascular, with delusions KADI YEPEZ MD Apr 07, 2021 21:59
--- NOTE | 2021-04-07 23:55 | PDOC ---
Exam Note: Morgan Note: This note is a late entry for 04/06/2021 covers elements not covered in my initial note. Subjective: The patient was seen face to face in the evening of 04/06/2021 with Joelle MONTERO, discussed and reviewed the chart. The patient slept 4-1/4 hours previous night. Patient has been yelling, less for her daughter Paula. She is less anxious, less tearful during the individual visit. Review of Systems: No CV, , pulmonary, eye, ENT system symptoms on review. Mental Status Exam: The patient is oriented to herself. Insight and judgment, recent and remote memory, attention and concentration, fund of knowledge is poor consistent with her diagnoses. Laboratory Data: Reviewed. Impression: Major neurocognitive disorder Alzheimer, vascular with delusion, depression, behavioral disturbance. Anxiety disorder unspecified. Impulse control disorder unspecified. Major depressive disorder. Plan: Continue current psychotropics. Patient will be discharged on 04/07. Assessment: Vital Signs/I&O: Vital Signs Date Time Temp Pulse Resp B/P (MAP) Pulse Ox O2 Delivery O2 Flow Rate FiO2 04/07/21 06:09 98.0 83 18 126/87 (100) 93 04/02/21 05:48 Room Air I & O 04/06/21 04/06/21 04/07/21 15:00 23:00 07:00 Intake Total 1080 ml 720 ml Balance 1080 ml 720 ml Labs: Laboratory Tests Test 04/07/21 07:19 Glucose (Fingerstick) 153 mg/dL (70-99) H Current Medications: Meds: Laboratory Tests Test 04/07/21 07:19 Glucose (Fingerstick) 153 mg/dL Current Medications Medications (Trade) Dose Ordered Sig/Wing Route PRN Reason Start Time Stop Time Status Last Admin Dose Admin Albuterol Sulfate (Ventolin) 2.5 mg PRN QID PRN IH wheezing 03/17/21 19:45 04/07/21 10:19 DC Furosemide (Lasix) 60 mg DAILY PO 03/18/21 09:00 04/07/21 10:19 DC 04/07/21 08:16 Pantoprazole Sodium (Protonix) 40 mg BIDBFRMEAL PO 03/18/21 07:30 04/07/21 10:19 DC 04/07/21 08:16 Fenofibrate (Tricor) 145 mg DAILY PO 03/18/21 09:00 04/07/21 10:19 DC 04/07/21 08:16 Potassium Chloride (Klor-Con) 30 meq DAILYWBKFT PO 03/18/21 08:00 04/07/21 10:19 DC 04/07/21 08:17 Rivaroxaban (Xarelto) 20 mg DAILYWSUP PO 03/17/21 20:00 04/07/21 10:19 DC 04/06/21 17:14 Lorazepam (Ativan) 1 mg PRN TID PRN PO ANXIETY / AGITATION 03/17/21 19:45 03/26/21 12:36 DC 03/17/21 20:19 Quetiapine Fumarate (SEROquel) 50 mg DAILYWSUP PO 03/17/21 20:00 03/19/21 11:53 DC 03/18/21 17:15 Sertraline HCl (Zoloft) 200 mg DAILY PO 03/18/21 09:00 03/22/21 19:40 DC 03/22/21 08:42 Temazepam (Restoril) 15 mg PRN QHS PRN PO 2nd choice INSOMNIA 03/17/21 19:45 04/01/21 20:29 DC 03/23/21 22:08 Trazodone HCl (Desyrel) 100 mg HS PO 03/17/21 21:00 03/26/21 12:36 DC 03/25/21 19:59 Acetaminophen (Tylenol) 650 mg PRN Q6HRS PRN PO MILD PAIN / TEMP > 100.3'F 03/17/21 19:45 04/07/21 10:19 DC 03/19/21 08:36 Multi-Ingredient Ointment (Analgesic [place]) 1 ravin PRN QID PRN TP MUSCLE PAIN 03/17/21 19:45 04/07/21 10:19 DC Al Hydroxide/Mg Hydroxide (Mylanta Plus Xs) 15 ml PRN AFTMEALHC PRN PO DYSPEPSIA 03/17/21 19:45 04/07/21 10:20 DC Magnesium Hydroxide (Milk Of Magnesia) 2,400 mg PRN QHS PRN PO CONSTIPATION 03/17/21 19:45 04/07/21 10:20 DC Mirtazapine (Remeron) 7.5 mg QHS PO 03/18/21 21:00 03/28/21 18:25 DC 03/27/21 20:05 Olanzapine (ZyPREXA ZYDIS) 2.5 mg PRN Q2HRS PRN PO PSYCHOSIS 03/18/21 10:30 04/07/21 10:20 DC 04/06/21 01:19 Vitamin D (Vitamin D3) 50,000 unit WEEKLY PO 03/18/21 18:00 04/07/21 10:20 DC 04/01/21 08:25 Ferrous Sulfate (Feosol) 325 mg BIDWMEALS PO 03/18/21 18:00 04/07/21 10:20 DC 04/07/21 08:16 Ascorbic Acid (Vitamin C) 500 mg BID PO 03/18/21 21:00 04/07/21 10:20 DC 04/07/21 08:16 Vitamin D (Vitamin D3) 50,000 unit WEEKLY PO 03/19/21 09:00 03/18/21 17:45 DC Ferrous Sulfate (Feosol) 325 mg BID PO 03/18/21 21:00 03/18/21 17:45 DC Ascorbic Acid (Vitamin C) 500 mg BID PO 03/18/21 21:00 03/18/21 17:45 DC Quetiapine Fumarate (SEROquel) 25 mg 0900,1300,1700 PO 03/19/21 13:00 03/21/21 16:43 DC 03/21/21 13:27 Quetiapine Fumarate (SEROquel) 37.5 mg 0900,1300,1700 PO 03/21/21 17:00 03/22/21 16:40 DC 03/22/21 12:37 Quetiapine Fumarate (SEROquel) 37.5 mg 1300,1700 PO 03/22/21 17:00 03/24/21 02:09 DC 03/23/21 16:47 Quetiapine Fumarate (SEROquel) 50 mg 0900 PO 03/23/21 09:00 03/26/21 12:36 DC 03/26/21 08:10 Sertraline HCl (Zoloft) 100 mg DAILY PO 03/23/21 09:00 03/24/21 21:11 DC 03/24/21 08:30 Sertraline HCl (Zoloft) 50 mg DAILY PO 03/23/21 09:00 03/24/21 21:11 DC 03/24/21 08:30 Quetiapine Fumarate (SEROquel) 37.5 mg DAILY@1700 PO 03/24/21 17:00 03/26/21 12:36 DC 03/25/21 16:40 Quetiapine Fumarate (SEROquel) 50 mg DAILY@1400 PO 03/24/21 14:00 03/26/21 12:36 DC 03/25/21 13:27 Duloxetine HCl (Cymbalta) 30 mg DAILY PO 03/25/21 09:00 03/27/21 11:00 DC 03/27/21 08:51 Duloxetine HCl (Cymbalta) 60 mg DAILY PO 03/28/21 09:00 04/07/21 10:20 DC 04/07/21 08:17 Trazodone HCl (Desyrel) 100 mg PRN QHS PRN PO INSOMNIA 03/26/21 12:30 03/26/21 12:49 DC Trazodone HCl (Desyrel) 50 mg 1X ONCE PO 03/26/21 12:45 03/26/21 12:44 DC Trazodone HCl (Desyrel) 50 mg PRN QHS PRN PO 1ST CHOICE INSOMNIA 03/26/21 13:15 04/07/21 10:20 DC 04/06/21 19:58 Aripiprazole (Abilify) 2 mg DAILY PO 03/28/21 09:00 03/30/21 03:17 DC 03/29/21 08:03 Hydrocortisone (Cortaid) 1 ravin BID TP 03/28/21 21:00 04/07/21 10:20 DC 04/07/21 08:17 Mirtazapine (Remeron) 15 mg QHS PO 03/28/21 21:00 04/07/21 10:20 DC 04/06/21 19:58 Aripiprazole (Abilify) 5 mg DAILY PO 03/30/21 09:00 04/07/21 10:20 DC 04/07/21 08:17 Dextrose (Dextrose 50%-Water Syringe) 12.5 gm PRN Q15MIN PRN IV SEE COMMENTS 04/02/21 16:00 04/07/21 10:20 DC Metformin HCl (Glucophage Xr) 500 mg DAILYWBKFT PO 04/04/21 08:00 04/07/21 10:20 DC 04/07/21 08:16 Nystatin (Nystop) 1 ravin BID TP 04/05/21 23:00 04/07/21 10:20 DC 04/07/21 08:17 I have reviewed the current psychotropics carefully including drug interactions. Risk benefit ratio favors no change other than as noted in my dictated progress note. Diagnosis: Problems: (1) Major depressive disorder, recurrent episode (2) Impulse control disorder, unspecified (3) Anxiety disorder, unspecified (4) Major neurocognitive disorder (5) Dementia, vascular, with depression (6) Dementia, vascular, with delusions KADI YEPEZ MD Apr 07, 2021 23:55
--- NOTE | 2021-04-08 19:28 | DS ---
DATE OF DISCHARGE: 04/07/2021 DISCHARGE SUMMARY/PSYCHIATRIC PROGRESS NOTE This is a late entry, date of service 04/07, covers elements not covered in my initial note. REASON FOR ADMISSION: Please refer to the admission history for details. Briefly, the patient is a 80-year-old female referred to us from [facility] on account of increased symptoms of depression, being delusional with marked insomnia, anxiety, screaming out, scared, feeling that she is going to be left [place] a [place]. Expressing wishes of wanting to be . She has failed outpatient psychiatric interventions resulting in this referral. SIGNIFICANT FINDINGS AND CLINICAL COURSE: Following admission, the patient was seen daily individually by myself from a psychiatric standpoint, medical followup with Dr. Pitts/Dr. Garcia. She is extremely tearful, anxious, crying, calling out repeatedly for Paula her daughter, this was almost unstoppable most of the day. She was initially started on Seroquel adjusted upward, but then became quite sedated on it with impaired ambulation and this was discontinued. She finally seemed to respond to a combination of Cymbalta 60 mg a day, Abilify 5 mg a day, Remeron 15 mg at bedtime, Zyprexa was used p.r.n. for psychosis, and trazodone for insomnia. REVIEW OF SYSTEMS: Prior to discharge on 04/07, ambulation impaired with walker. No CV, , pulmonary, eye, ENT system symptoms on review. MENTAL STATUS EXAMINATION: Oriented to herself. Insight, judgment, recent and remote memory, attention, concentration, fund of knowledge poor consistent with her diagnoses. FINAL DIAGNOSES: Major depressive disorder, recurrent, in partial remission; major neurocognitive disorder; Alzheimer, vascular with depression; delusion behavioral disturbance; anxiety disorder, unspecified; impulse control disorder, unspecified. Rest unchanged from admission. DISCHARGE MEDICATIONS: Please refer to the MRAD. DISCHARGE INSTRUCTIONS: Outpatient psychiatric and medical followup at the facility, she was transferred to. Time for discharge day management greater than 30 minutes. ALBERTO/ARNAUD DR: Harinder TID: [id number]
== END 2021-04-07 10:10 | DRG 885 ==
LOC: GEROPSY 17:51
PROVIDERS: ADMIT Psychiatry & Neurology Psychiatry; ATTEND Psychiatry & Neurology Psychiatry
DX: F33.41 Major depressive disorder, recurrent, in partial remission (principal); F01.50 Vascular dementia, unspecified severity, without behavioral disturbance, psychotic disturbance, mood disturbance, and anxiety; I11.0 Hypertensive heart disease with heart failure; I50.32 Chronic diastolic (congestive) heart failure; F41.9 Anxiety disorder, unspecified; E03.9 Hypothyroidism, unspecified; E78.5 Hyperlipidemia, unspecified; F02.80 Dementia in other diseases classified elsewhere, unspecified severity, without behavioral disturbance, psychotic disturbance, mood disturbance, and anxiety; F63.9 Impulse disorder, unspecified; G30.9 Alzheimer's disease, unspecified; G47.00 Insomnia, unspecified; I48.91 Unspecified atrial fibrillation; J44.9 Chronic obstructive pulmonary disease, unspecified; Z66 Do not resuscitate; Z79.899 Other long term (current) drug therapy; Z86.16 Personal history of COVID-19; Z86.711 Personal history of pulmonary embolism
CPT/HCPCS: 36415; 80053; 80061; 81001; 82306; 82607; 82947; 83036; 83540; 83550; 83735; 84439; 84443; 84480; 84481; 85025; 85379; 86592; G0378; G0379; 97110; 97116; 97530; 97535